=== PATIENT | female | born 1945 | race Caucasian/White ===

== ENCOUNTER → 2019-08-09 | Outpatient (CLI) | payer MEDICARE ==
--- NOTE | 2019-08-10 15:00 | MM ---
Reason for exam: screening (asymptomatic). History: Patient is postmenopausal and history of other cancer. Family history of breast cancer in cousin. 3 excisional biopsies of the left breast. Physical Findings: A clinical breast exam by your physician is recommended on an annual basis and results should be correlated with mammographic findings. MG 3D Screening Mammo W/Cad Bilateral CC and MLO view(s) were taken. No prior studies available for comparison. There are scattered fibroglandular densities. Finding: There are typically benign vascular, round calcifications in both breasts. There is no discrete abnormality. ASSESSMENT: Benign, BI-RAD 2 RECOMMENDATION: Routine screening mammogram of both breasts in 1 year.
== END | disposition home or self-care (01) ==
LOC: RADMAMWWP 14:09
PROVIDERS: ATTEND Family Medicine
DX: Z12.31 Encounter for screening mammogram for malignant neoplasm of breast (principal)
CPT/HCPCS: 77063; 77067

== ENCOUNTER → 2019-08-24 | Outpatient (CLI) | payer MEDICARE ==
--- NOTE | 2019-08-24 14:47 | CT ---
EXAMINATION TYPE: CT urogram wo/w con DATE OF EXAM: 08/24/2019 COMPARISON: None HISTORY: 74-year-old female gross Hematuria TECHNIQUE: Contiguous axial scanning of the abdomen and pelvis performed without and with IV Contrast , patient injected with 80 mL of Isovue 300. Delayed images through the kidneys and bladder were obta ined. Coronal/sagittal reconstructions performed. 3-D reconstructions generated on a dedicated [employer] workstation. CT DLP: 1776 mGycm Automated exposure control for dose reduction was used. FINDINGS: Median sternotomy wires with post-CABG changes. Heart upper limits of normal in size. Strandy atelect asis in the lower lungs. Some curvilinear opacities at the peripheral left base suggests scarring. No pleural effusion. Liver mildly enlarged at 18.7 cm with low-attenuation. No focal lesion seen. No biliary ductal dilata tion. Portal venous system is patent. Cholecystectomy clips. Slight 1.2 cm nodularity left adrenal gland unchanged from 07/20/2013. Right internal gland, spleen, and pancreas appear within normal limits. Mild to moderate atelectatic calcifications infrarenal abdominal aorta without aneurysm. Omental fat-containing ventral epigastric hernia measuring 3.8 cm wide and 4.8 cm craniocaudal. No nephrolithiasis or hydronephrosis. Symmetric uptake and excretion of contrast from both kidneys. A couple subcentimeter hypodensities within both kidneys too small for accurate CT characterization, l ikely cysts. No abnormal filling defect within the renal collecting systems. Limited degree of intraluminal opacif ication along the distalmost ureters without any evident abnormal wall thickening. No suspicious fill ing defects seen throughout the course of the remainder of the ureters or abnormal wall thickening. No dilated small bowel, free fluid, or free air. Some scattered prominent fluid-filled small bowel lo ops in the lower abdomen and pelvis. Normal appendix. Mild to moderate stool burden. No pericolonic i nflammatory change. Uterus surgically absent. No abnormal fluid collection in the pelvis or pelvic lymphadenopathy. On the 10 minute delayed scan, there is opacification of the posterior half of the bladder. No suspic ious filling defect is identified along the posterior half. Mild circumferential bladder wall thicken ing is noted. Bones: Mild degenerative changes at the hips. Osteopenia. Advanced degenerative changes throughout th e lumbar spine with grade 1 anterolisthesis at L5-S1. IMPRESSION: 1. A COUPLE SUBCENTIMETER HYPODENSITIES IN BOTH KIDNEYS TOO SMALL FOR ACCURATE CT CHARACTERIZATION, L IKELY TINY CORTICAL CYSTS. NO SUSPICIOUS RENAL MASS. 2. NO NEPHROLITHIASIS OR HYDRONEPHROSIS. 3. NO SUSPICIOUS FILLING DEFECT WITHIN THE RENAL COLLECTING SYSTEMS OR ALONG THE COURSE OF THE URETER S. 4. MILD CIRCUMFERENTIAL BLADDER WALL THICKENING. CORRELATE TO EXCLUDE CYSTITIS. 5. 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
== END | disposition home or self-care (01) ==
LOC: RADCTMAIN 12:17
PROVIDERS: ATTEND Urology
DX: N32.89 Other specified disorders of bladder (principal)
CPT/HCPCS: 82565; 84520; 74178; 36415; 74400; Q9967

== ENCOUNTER → 2021-09-27 | Outpatient (CLI) | payer MEDICARE ==
--- NOTE | 2021-09-28 11:58 | MM ---
Reason for exam: screening (asymptomatic). Last mammogram was performed 2 years and 2 months ago. History: Patient is postmenopausal and history of other cancer. Family history of breast cancer in cousin. 3 excisional biopsies of the left breast. Physical Findings: A clinical breast exam by your physician is recommended on an annual basis and results should be correlated with mammographic findings. MG 3D Screening Mammo W/Cad Bilateral CC and MLO view(s) were taken. Prior study comparison: August 09, 2019, bilateral MG 3d screening mammo w/cad. The breast tissue is heterogeneously dense. This may lower the sensitivity of mammography. There are benign appearing round vascular calcifications bilaterally. There is no discrete abnormality. ASSESSMENT: Benign, BI-RAD 2 RECOMMENDATION: Routine screening mammogram of both breasts in 1 year.
== END | disposition home or self-care (01) ==
LOC: RADMAMWWP 08:00
PROVIDERS: ATTEND Obstetrics & Gynecology
DX: Z12.31 Encounter for screening mammogram for malignant neoplasm of breast (principal)
CPT/HCPCS: 77063; 77067

== ENCOUNTER → 2022-10-04 | Outpatient (CLI) | payer MEDICARE ==
--- NOTE | 2022-10-04 14:15 | US ---
EXAMINATION TYPE: US extremity nonvascular mass RT DATE OF EXAM: 10/04/2022 COMPARISON: NONE CLINICAL HISTORY: R22.41 LOCALIZED SWELLING, MASS AND LUMP. Right leg In area of palpable mass #1 (lateral mid calf), no abnormality is visualized. In area of palpable mass #2 (medial ankle), no abnormality is visualized. IMPRESSION: Targeted ultrasound shows no worrisome mass or focal fluid collection.
--- NOTE | 2022-10-07 09:49 | US ---
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 History of hypertension and hyperlipidemia. History of diabetes. Doppler Waveforms: Right: Multiphasic Left: Multiphasic Ankle-Brachial Indices: Right: 1.2 Left: 1.2 Toe Brachial Indices: Right: 0.85 Left: 0.80 IMPRESSION: Normal study.
== END | disposition home or self-care (01) ==
LOC: RADUSWWP 12:53
PROVIDERS: ATTEND Family Medicine
DX: I25.119 Atherosclerotic heart disease of native coronary artery with unspecified angina pectoris (principal); R22.41 Localized swelling, mass and lump, right lower limb
CPT/HCPCS: 93922

== ENCOUNTER 2023-01-16 19:14 | Inpatient (IN) | payer MEDICARE ==
[2023-01-16] MEDS ORDERED: SODIUM CHLORIDE 0.9% 1,000 ML IV STA (19:40)
--- NOTE | 2023-01-16 19:54 | ED ---
Weakness HPI - General Chief complaint: Weakness Stated complaint: SOB, Weakness, ABD Pain Time Seen by Provider: 01/16/23 19:26 Source: patient Mode of arrival: ambulatory Limitations: no limitations - History of Present Illness Initial comments: Patient is a 77-year-old female with history of diabetes, COPD, thyroid disorder presenting with chief complaint of generalized weakness. She states that symptoms have been ongoing for months but over the last week they have acutely worsened. Patient states that by the end of the day she is exhausted and even walking short distances. She also notes shortness of breath. She denies chest pain. She admits to intermittent cramping abdominal pain that has also been ongoing for weeks. She admits to nausea and intermittent diarrhea, no vomiting. - Related Data Home Medications Medication Instructions Recorded Confirmed Albuterol Sulfate [Albuterol 2 puff PO RT-Q6H PRN 01/16/23 01/16/23 Sulfate Hfa] Ascorbic Acid [Vitamin C] 1,000 mg PO DAILY 01/16/23 01/16/23 Biotin 5 mg PO DAILY 01/16/23 01/16/23 Budesonide/Formoterol Fumarate 2 puff INHALATION RT-BID 01/16/23 01/16/23 [Symbicort 160-4.5 Mcg Inhaler] Bumetanide [BUMEX] 2 mg PO BID@0900,1700 01/16/23 01/16/23 Clopidogrel [Plavix] 75 mg PO DAILY 01/16/23 01/16/23 DULoxetine HCL [Cymbalta] 120 mg PO DAILY 01/16/23 01/16/23 Dicyclomine HCl 20 mg PO QID 01/16/23 01/16/23 Doxycycline Hyclate [Doryx] 50 mg PO DAILY 01/16/23 01/16/23 Fexofenadine HCl [Kathy Allergy] 180 mg PO DAILY 01/16/23 01/16/23 Glucosam/Charlie-Msm1/C/Odilon/Bosw 1 tab PO DAILY 01/16/23 01/16/23 [Glucosamine-Chondroitin Tablet] LORazepam [Ativan] 0.5 mg PO DAILY 01/16/23 01/16/23 LORazepam [Ativan] 1 mg PO HS 01/16/23 01/16/23 Levothyroxine Sodium [Synthroid] 75 mcg PO DAILY 01/16/23 01/16/23 Metoprolol Tartrate [Lopressor] 50 mg PO BID 01/16/23 01/16/23 Multivitamins, Thera [Multivitamin 1 tab PO DAILY 01/16/23 01/16/23 (formulary)] Nitroglycerin 0.4MG/Hr Patch 1 patch TRANSDERM DAILY 01/16/23 01/16/23 [Nitro-Dur 0.4MG/Hr Patch] Omeprazole [PriLOSEC] 20 mg PO BID 01/16/23 01/16/23 Potassium Chloride ER [K-Dur 20] 20 meq PO BID 01/16/23 01/16/23 Ranolazine [Ranexa] 500 mg PO BID 01/16/23 01/16/23 Rosuvastatin Calcium [Crestor] 40 mg PO HS 01/16/23 01/16/23 lisinopriL [Zestril] 2.5 mg PO DAILY 01/16/23 01/16/23 metFORMIN HCL [Glucophage] 1,000 mg PO BID 01/16/23 01/16/23 Allergies Allergy/AdvReac Type Severity Reaction Status Date / Time No Known Allergies Allergy Verified 01/16/23 21:04 Review of Systems ROS Statement: Those systems with pertinent positive or pertinent negative responses have been documented in the HPI. ROS Other: All systems not noted in ROS Statement are negative. Past Medical History Past Medical History: Cancer, Diabetes Mellitus, GERD/Reflux, Myocardial Infarction (MN), Osteoarthritis (OA), Thyroid Disorder Past Surgical History: Breast Surgery, Cholecystectomy, Coronary Bypass/CABG, Heart Catheterization With Stent, Joint Replacement Past Psychological History: Anxiety, Depression Smoking Status: Former smoker Past Alcohol Use History: None Reported Past Drug Use History: None Reported General Exam Limitations: no limitations General appearance: alert, in no apparent distress Head exam: Present: atraumatic, normocephalic, normal inspection Eye exam: Present: normal appearance Neck exam: Present: normal inspection, full ROM Respiratory exam: Present: normal lung sounds bilaterally. Absent: respiratory distress, wheezes, rales, rhonchi, stridor Cardiovascular Exam: Present: regular rate, normal rhythm, normal heart sounds. Absent: systolic murmur, diastolic murmur, rubs, gallop, clicks GI/Abdominal exam: Present: soft. Absent: distended, tenderness, guarding, rebound, rigid Extremities exam: Absent: pedal edema Neurological exam: Present: alert, oriented X3, CN II-XII intact Psychiatric exam: Present: normal affect, normal mood Skin exam: Present: warm, dry, intact, normal color. Absent: rash Course Vital Signs 01/16/23 01/16/23 01/16/23 19:17 21:08 22:52 Temperature 98.1 F Pulse Rate 82 80 80 Respiratory 24 22 20 Rate Blood Pressure 147/70 116/52 131/88 O2 Sat by Pulse 96 97 96 Oximetry 01/16/23 23:40 Temperature Pulse Rate 78 Respiratory 20 Rate Blood Pressure 140/66 O2 Sat by Pulse 98 Oximetry EKG Findings - EKG Comments: EKG Findings:: Sinus rhythm ventricular rate 79. PA interval 192. QRS 103. QTC 395. QTc 429. T-wave inversion in leads 1 and aVL. Left axis deviation. Medical Decision Making - Medical Decision Making Was pt. sent in by a medical professional or institution (, PA, ANALYTICAL CHEMIST, urgent care, hospital, or custodial...) When possible be specific @ -No Did you speak to anyone other than the patient for history (EMS, parent, family, police, friend...)? What history was obtained from this source @ -No Did you review nursing and triage notes (agree or disagree)? Why? @ -I reviewed and agree with nursing and triage notes Were old charts reviewed (outside hosp., previous admission, EMS record, old EKG, old radiological studies, urgent care reports/EKG's, custodial records)? Report findings @ -No old charts were reviewed Differential Diagnosis (chest pain, altered mental status, abdominal pain women, abdominal pain men, vaginal bleeding, weakness, fever, dyspnea, syncope, headache, dizziness, GI bleed, back pain, seizure, CVA, palpatations, mental health, musculoskeletal)? @ -MDM Differential Weakness: Hypoglycemia, shock, sepsis, hyponatremia, anemia, infection, MN, ETOH, adverse medicine reaction, overdose, stroke. ... This is not meant to be an all-incl usive list EKG interpreted by me (3pts min.). @ -As above X-rays interpreted by me (1pt min.). @ -Chest x-ray shows no acute process CT interpreted by me (1pt min.). @ -None done U/S interpreted by me (1pt. min.). @ -None done What testing was considered but not performed or refused? (CT, X-rays, U/S, labs)? Why? @ -None What meds were considered but not given or refused? Why? @ -None Did you discuss the management of the patient with other professionals (professionals i.e. Dr., PA, ANALYTICAL CHEMIST, lab, RT, psych nurse, psychosocial rehabilitation counselor, salvage determiner, teacher, licensing officer, continuous pillowcase cutter)? Give summary @ -discussed with admitting physician Dr. Quintanilla Was smoking cessation discussed for >3mins.? @ -No Was critical care preformed (if so, how long)? @ -No Were there social determinants of health that impacted care today? How? (Homelessness, low income, unemployed, alcoholism, drug addiction, transportation, low edu. Level, literacy, decrease access to med. care, residential, rehab)? @ -No Was there de-escalation of care discussed even if they declined (Discuss DNR or withdrawal of care, Hospice)? DNR status @ -No What co-morbidities impacted this encounter? (DM, HTN, Smoking, COPD, CAD, Cancer, CVA, ARF, Chemo, Hep., AIDS, mental health diagnosis, sleep apnea, morbid obesity)? @ -None Was patient admitted / discharged? Hospital course, mention meds given and route, prescriptions, significant lab abnormalities, going to OR and other pertinent info. @ -Patient is a 77-year-old female presenting with chief complaint of generalized weakness that has been persistent for months and worsening over the last week. She also admits to shortness of breath and nausea. Physical examination is unremarkable. EKG shows no acute process. Lab work shows hemoglobin 9.7, this is been slightly downward trending since October. BUN 36 creatinine 1.51. Lactic acid 2.6. Magnesium 1.5. Troponin less than 0.012. TSH less than 0.015. Chest x-ray shows no acute process. Given the anemia, dehydration, hypomagnesmia, and low TSH level, I believe it is reasonable to admit patient for generalized weakness and further workup. I spoke with Dr. Quintanilla who accepted admission. Patient is agreeable with this plan. I discus sed this case with my attending Dr. Mary. Undiagnosed new problem with uncertain prognosis? @ -No Drug Therapy requiring intensive monitoring for toxicity (Heparin, Nitro, Insulin, Cardizem)? @ -No Were any procedures done? @ -No Diagnosis/symptom? @ -Weakness Acute, or Chronic, or Acute on Chronic? @ -Acute on chronic Uncomplicated (without systemic symptoms) or Complicated (systemic symptoms)? @ -Complicated Side effects of treatment? @ -No Exacerbation, Progression, or Severe Exacerbation? @ -No Poses a threat to life or bodily function? How? (Chest pain, USA, MN, pneumonia, PE, COPD, DKA, ARF, appy, cholecystitis, CVA, Diverticulitis, Homicidal, Suicidal, threat to staff... and all critical care pts) @ -No - Lab Data Result diagrams: 01/16/23 20:18 01/16/23 20:18 Lab Results 01/16/23 01/16/23 01/16/23 Range/Units 20:18 20:18 20:18 WBC 7.8 (3.8-10.6) k/uL RBC 3.06 L (3.80-5.40) m/uL Hgb 9.7 L (11.4-16.0) gm/dL Hct 29.0 L (34.0-46.0) % MCV 94.8 (80.0-100.0) fL MCH 31.6 (25.0-35.0) pg MCHC 33.3 (31.0-37.0) g/dL RDW 12.8 (11.5-15.5) % Plt Count 342 (150-450) k/uL MPV 7.5 Neutrophils % 64 % Lymphocytes % 21 % Monocytes % 7 % Eosinophils % 5 % Basophils % 0 % Neutrophils # 5.0 (1.3-7.7) k/uL Lymphocytes # 1.7 (1.0-4.8) k/uL Monocytes # 0.5 (0-1.0) k/uL Eosinophils # 0.4 (0-0.7) k/uL Basophils # 0.0 (0-0.2) k/uL PT 9.9 (9.0-12.0) sec INR 0.9 (<1.2) APTT 22.3 (22.0-30.0) sec Sodium 136 L (137-145) mmol/L Potassium 4.6 (3.5-5.1) mmol/L Chloride 100 (98-107) mmol/L Carbon Dioxide 26 (22-30) mmol/L Anion Gap 10 mmol/L BUN 36 H (7-17) mg/dL Creatinine 1.51 H (0.52-1.04) mg/dL Est GFR (CKD-EPI)AfAm 39 (>60 ml/min/1.73 sqM) Est GFR (CKD-EPI)NonAf 33 (>60 ml/min/1.73 sqM) Glucose 142 H (74-99) mg/dL Lactic Ac Sepsis Rflx Plasma Lactic Acid Ronald (0.7-2.0) mmol/L Calcium 9.5 (8.4-10.2) mg/dL Phosphorus 4.5 (2.5-4.5) mg/dL Magnesium 1.5 L (1.6-2.3) mg/dL Total Bilirubin 0.2 (0.2-1.3) mg/dL AST 20 (14-36) U/L ALT 29 (4-34) U/L Alkaline Phosphatase 69 (38-126) U/L Troponin I (0.000-0.034) ng/mL Total Protein 6.2 L (6.3-8.2) g/dL Albumin 3.8 (3.5-5.0) g/dL TSH <0.015 L (0.465-4.680) mIU/L Free T4 1.14 (0.78-2.19) ng/dL Urine Color Urine Appearance (Clear) Urine pH (5.0-8.0) Ur Specific Glenn (1.001-1.035) Urine Protein (Negative) Urine Glucose (UA) (Negative) Urine Ketones (Negative) Urine Blood (Negative) Urine Nitrite (Negative) Urine Bilirubin (Negative) Urine Urobilinogen (<2.0) mg/dL Ur Leukocyte Esterase (Negative) Urine RBC (0-5) /hpf Urine WBC (0-5) /hpf Hyaline Casts (0-2) /lpf Urine Mucus (None) /hpf 01/16/23 01/16/23 01/16/23 Range/Units 20:18 20:18 21:29 WBC (3.8-10.6) k/uL RBC (3.80-5.40) m/uL Hgb (11.4-16.0) gm/dL Hct (34.0-46.0) % MCV (80.0-100.0) fL MCH (25.0-35.0) pg MCHC (31.0-37.0) g/dL RDW (11.5-15.5) % Plt Count (150-450) k/uL MPV Neutrophils % % Lymphocytes % % Monocytes % % Eosinophils % % Basophils % % Neutrophils # (1.3-7.7) k/uL Lymphocytes # (1.0-4.8) k/uL Monocytes # (0-1.0) k/uL Eosinophils # (0-0.7) k/uL Basophils # (0-0.2) k/uL PT (9.0-12.0) sec INR (<1.2) APTT (22.0-30.0) sec Sodium (137-145) mmol/L Potassium (3.5-5.1) mmol/L Chloride (98-107) mmol/L Carbon Dioxide (22-30) mmol/L Anion Gap mmol/L BUN (7-17) mg/dL Creatinine (0.52-1.04) mg/dL Est GFR (CKD-EPI)AfAm (>60 ml/min/1.73 sqM) Est GFR (CKD-EPI)NonAf (>60 ml/min/1.73 sqM) Glucose (74-99) mg/dL Lactic Ac Sepsis Rflx Y Plasma Lactic Acid Ronald 2.6 H* (0.7-2.0) mmol/L Calcium (8.4-10.2) mg/dL Phosphorus (2.5-4.5) mg/dL Magnesium (1.6-2.3) mg/dL Total Bilirubin (0.2-1.3) mg/dL AST (14-36) U/L ALT (4-34) U/L Alkaline Phosphatase (38-126) U/L Troponin I <0.012 (0.000-0.034) ng/mL Total Protein (6.3-8.2) g/dL Albumin (3.5-5.0) g/dL TSH (0.465-4.680) mIU/L Free T4 (0.78-2.19) ng/dL Urine Color Urine Appearance (Clear) Urine pH (5.0-8.0) Ur Specific Glenn (1.001-1.035) Urine Protein (Negative) Urine Glucose (UA) (Negative) Urine Ketones (Negative) Urine Blood (Negative) Urine Nitrite (Negative) Urine Bilirubin (Negative) Urine Urobilinogen (<2.0) mg/dL Ur Leukocyte Esterase (Negative) Urine RBC (0-5) /hpf Urine WBC (0-5) /hpf Hyaline Casts (0-2) /lpf Urine Mucus (None) /hpf 01/16/23 Range/Units 22:30 WBC (3.8-10.6) k/uL RBC (3.80-5.40) m/uL Hgb (11.4-16.0) gm/dL Hct (34.0-46.0) % MCV (80.0-100.0) fL MCH (25.0-35.0) pg MCHC (31.0-37.0) g/dL RDW (11.5-15.5) % Plt Count (150-450) k/uL MPV Neutrophils % % Lymphocytes % % Monocytes % % Eosinophils % % Basophils % % Neutrophils # (1.3-7.7) k/uL Lymphocytes # (1.0-4.8) k/uL Monocytes # (0-1.0) k/uL Eosinophils # (0-0.7) k/uL Basophils # (0-0.2) k/uL PT (9.0-12.0) sec INR (<1.2) APTT (22.0-30.0) sec Sodium (137-145) mmol/L Potassium (3.5-5.1) mmol/L Chloride (98-107) mmol/L Carbon Dioxide (22-30) mmol/L Anion Gap mmol/L BUN (7-17) mg/dL Creatinine (0.52-1.04) mg/dL Est GFR (CKD-EPI)AfAm (>60 ml/min/1.73 sqM) Est GFR (CKD-EPI)NonAf (>60 ml/min/1.73 sqM) Glucose (74-99) mg/dL Lactic Ac Sepsis Rflx Plasma Lactic Acid Ronald (0.7-2.0) mmol/L Calcium (8.4-10.2) mg/dL Phosphorus (2.5-4.5) mg/dL Magnesium (1.6-2.3) mg/dL Total Bilirubin (0.2-1.3) mg/dL AST (14-36) U/L ALT (4-34) U/L Alkaline Phosphatase (38-126) U/L Troponin I (0.000-0.034) ng/mL Total Protein (6.3-8.2) g/dL Albumin (3.5-5.0) g/dL TSH (0.465-4.680) mIU/L Free T4 (0.78-2.19) ng/dL Urine Color Light Yellow Urine Appearance Clear (Clear) Urine pH 5.0 (5.0-8.0) Ur Specific Glenn 1.010 (1.001-1.035) Urine Protein Negative (Negative) Urine Glucose (UA) Negative (Negative) Urine Ketones Negative (Negative) Urine Blood Negative (Negative) Urine Nitrite Negative (Negative) Urine Bilirubin Negative (Negative) Urine Urobilinogen <2.0 (<2.0) mg/dL Ur Leukocyte Esterase Small H (Negative) Urine RBC 1 (0-5) /hpf Urine WBC 4 (0-5) /hpf Hyaline Casts 1 (0-2) /lpf Urine Mucus Rare H (None) /hpf Disposition Clinical Impression: Weakness, Dehydration, Anemia Disposition: ADMITTED IP TO THIS [facility] Condition: Fair Time of Disposition: 22:21
--- NOTE | 2023-01-16 20:20 | XR ---
EXAMINATION TYPE: XR chest 2V DATE OF EXAM: 01/16/2023 COMPARISON: 06/23/2013 HISTORY: Short of breath TECHNIQUE: 2 views FINDINGS: Heart is normal. There is some mild atelectasis left lung base. There are sternal wires. No pleural effusion. Bony thorax is intact. Thoracic aorta is atheromatous. There is slight elevated ri ght diaphragm. IMPRESSION: There is some mild atelectasis left lung base which is improved compared to old exam. No heart failure. Mild chronic elevation of the right diaphragm.
[2023-01-16 20:46] LABS: Basophils % (A) 0 %; Eosinophils # (A) 0.4 k/uL (0-0.7); Eosinophils % (A) 5 %; HGB 9.7 gm/dL (11.4-16.0); Lymphocytes # (A) 1.7 k/uL (1.0-4.8); Lymphocytes % (A) 21 %; MCH 31.6 pg (25.0-35.0); MCHC 33.3 g/dL (31.0-37.0); MCV 94.8 fL (80.0-100.0); Mean Platelet Volume 7.5; Monocytes # (A) 0.5 k/uL (0-1.0); Monocytes % (A) 7 %; Neutrophils % (A) 64 %; Platelet Count 342 k/uL (150-450); RBC 3.06 m/uL (3.80-5.40); RDW 12.8 % (11.5-15.5); WBC 7.8 k/uL (3.8-10.6)
[2023-01-16 21:04] LABS: ALT 29 U/L (4-34); AST 20 U/L (14-36); African American GFR (CKD) 39 (>60 ml/min/1.73 sqM); Albumin 3.8 g/dL (3.5-5.0); Alkaline Phosphatase 69 U/L (38-126); Anion Gap 10 mmol/L; Blood Urea Nitrogen 36 mg/dL (7-17); Calcium 9.5 mg/dL (8.4-10.2); Carbon Dioxide 26 mmol/L (22-30); Chloride 100 mmol/L (98-107); Glucose 142 mg/dL (74-99); Magnesium 1.5 mg/dL (1.6-2.3); Non-African American GFR(CKD) 33 (>60 ml/min/1.73 sqM); Phosphorus 4.5 mg/dL (2.5-4.5); Potassium 4.6 mmol/L (3.5-5.1); Sodium 136 mmol/L (137-145); Total Bilirubin 0.2 mg/dL (0.2-1.3); Total Protein 6.2 g/dL (6.3-8.2)
[2023-01-16] MEDS ORDERED: MAGNESIUM SULFATE-D5W PMX 1 GM in DEXTROSE/WATER 1 100ML.BAG IVPB ONE (21:07)
[2023-01-16 21:08] LABS: INR 0.9 (<1.2); Partial Thromboplastin Time 22.3 sec (22.0-30.0); Prothrombin Time 9.9 sec (9.0-12.0)
[2023-01-16] MEDS ORDERED: NALOXONE 0.4 MG/ML 1 ML VIAL IV PRN (22:29)
[2023-01-16 22:50] LABS: T4, Free (Free Thyroxine) 1.14 ng/dL (0.78-2.19)
[2023-01-16 23:15] LABS: Appearance,Urine Clear (Clear); Bilirubin,Urine Negative (Negative); Blood,Urine Negative (Negative); Color,Urine Light Yellow; Glucose,Urine (UA) Negative (Negative); Hyaline Casts,Urine 1 /lpf (0-2); Ketones,Urine Negative (Negative); Leukocyte Esterase,Urine Small (Negative); Mucus,Urine Rare /hpf; Nitrite,Urine Negative (Negative); Protein,Urine Negative (Negative); RBC,Urine 1 /hpf (0-5); Urobilinogen,Urine <2.0 mg/dL (<2.0); WBC,Urine 4 /hpf (0-5)
[2023-01-17] MEDS: SODIUM CHLORIDE 0.9% 1,000 ML IV SCH ×2 (01:09→03:32)
[2023-01-17] MEDS: ACETAMINOPHEN TAB 325 MG TAB PO PRN ×2 (01:37→22:56)
[2023-01-17] MEDS ORDERED: LEVOTHYROXINE 75 MCG TAB PO SCH (06:30)
[2023-01-17] MEDS: SYMBICORT 160-4.5 MCG INHALER INHALATION SCH ×2 (08:33→21:13)
[2023-01-17] MEDS: LORATADINE 10 MG TAB PO SCH (08:52)
[2023-01-17] MEDS: PANTOPRAZOLE 40 MG TABLET PO SCH (08:52)
[2023-01-17] MEDS: RANOLAZINE 500 MG TAB.ER.12H PO SCH ×2 (08:52→20:51)
[2023-01-17] MEDS ORDERED: BUMETANIDE 1 MG TAB PO SCH (09:00)
[2023-01-17] MEDS ORDERED: NON FORMULARY DRUG (Glucosam/Chon-Msm1/C/Mang/Bosw [Glucosamine-Chondroitin Tablet] 1 EACH PO SCH (09:00)
[2023-01-17] MEDS ORDERED: POTASSIUM CHLORIDE ER 20 MEQ TAB.ER PO SCH (09:00)
[2023-01-17] MEDS ORDERED: metFORMIN 500 MG TAB PO SCH (09:00)
[2023-01-17] MEDS ORDERED: NON FORMULARY DRUG (Biotin [Biotin] 5 MG Capsule) PO SCH (09:00)
--- NOTE | 2023-01-17 09:17 | P.HPIM ---
History of Present Illness H&P Date: 01/17/23 Hodan Jacobs, is a 77 -year-old female who presented to [facility] emergency room with a chief complaint of generalized weakness She was evaluated in the emergency room vital examination on presentation revealed a temperature of 98.1 pulse 82 respiration 24 blood pressure 147/70 pulse ox 96% on room air Laboratory data revealed a white blood count of 7.8 hemoglobin 9.7 platelet count 342 sodium 136 potassium 4.6 chloride 100 CO2 26 BUN 36 creatinine 1.51 creatinine was 1.3 on 01/02/2023 lactic acid was elevated at 2.6 troponin normal at 0.012 TSH was low at 0.015 urine analysis was positive for leukocyte esterase Testing in the emergency room revealed chest x-ray done in the emergency room revealed mild atelectasis in the left lung and chronic elevation in the right diaphragm, EKG revealed sinus rhythm with 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 Patient was admitted to medical floor for further evaluation and treatment Past medical history is significant for history of hypertension, history of hypothyroidism, history of hyperlipidemia, history of coronary artery disease, history of [id number] diabetes mellitus, history of obstructive sleep apnea. On review of systems patient is alert and oriented 3 in no apparent distress there is no fever or chills no headache or dizziness no chest pain , she is complaining of shortness of breath no cough no nausea or vomiting no abdominal pain no diarrhea and no urinary symptoms Past Medical History Past Medical History: Cancer, Diabetes Mellitus, GERD/Reflux, Myocardial Infarction ([place]), Osteoarthritis (OA), Thyroid Disorder Last Myocardial Infarction Date:: 2010 History of Any Multi-Drug Resistant Organisms: None Reported Past Surgical History: Breast Surgery, Cholecystectomy, Coronary Bypass/CABG, Heart Catheterization With Stent, Joint Replacement Additional Past Surgical History / Comment(s): Tripple Bypass Past Anesthesia/Blood Transfusion Reactions: No Reported Reaction Date of Last Stent Placement:: Unknown Past Psychological History: Anxiety, Depression Smoking Status: Former smoker Past Alcohol Use History: None Reported Past Drug Use History: None Reported Medications and Allergies Home Medications Medication Instructions Recorded Confirmed Type Albuterol Sulfate [Albuterol 2 puff PO RT-Q6H PRN 01/16/23 01/16/23 History Sulfate Hfa] Ascorbic Acid [Vitamin C] 1,000 mg PO DAILY 01/16/23 01/16/23 History Biotin 5 mg PO DAILY 01/16/23 01/16/23 History Budesonide/Formoterol Fumarate 2 puff INHALATION RT-BID 01/16/23 01/16/23 History [Symbicort 160-4.5 Mcg Inhaler] Bumetanide [BUMEX] 2 mg PO BID@0900,1700 01/16/23 01/16/23 History Clopidogrel [Plavix] 75 mg PO DAILY 01/16/23 01/16/23 History DULoxetine HCL [Cymbalta] 120 mg PO DAILY 01/16/23 01/16/23 History Dicyclomine HCl 20 mg PO QID 01/16/23 01/16/23 History Doxycycline Hyclate [Doryx] 50 mg PO DAILY 01/16/23 01/16/23 History Fexofenadine HCl [Kathy Allergy] 180 mg PO DAILY 01/16/23 01/16/23 History Glucosam/Charlie-Msm1/C/Odilon/Bosw 1 tab PO DAILY 01/16/23 01/16/23 History [Glucosamine-Chondroitin Tablet] LORazepam [Ativan] 0.5 mg PO DAILY 01/16/23 01/16/23 History LORazepam [Ativan] 1 mg PO HS 01/16/23 01/16/23 History Levothyroxine Sodium [Synthroid] 75 mcg PO DAILY 01/16/23 01/16/23 History Metoprolol Tartrate [Lopressor] 50 mg PO BID 01/16/23 01/16/23 History Multivitamins, Thera [Multivitamin 1 tab PO DAILY 01/16/23 01/16/23 History (formulary)] Nitroglycerin 0.4MG/Hr Patch 1 patch TRANSDERM DAILY 01/16/23 01/16/23 History [Nitro-Dur 0.4MG/Hr Patch] Omeprazole [PriLOSEC] 20 mg PO BID 01/16/23 01/16/23 History Potassium Chloride ER [K-Dur 20] 20 meq PO BID 01/16/23 01/16/23 History Ranolazine [Ranexa] 500 mg PO BID 01/16/23 01/16/23 History Rosuvastatin Calcium [Crestor] 40 mg PO HS 01/16/23 01/16/23 History lisinopriL [Zestril] 2.5 mg PO DAILY 01/16/23 01/16/23 History metFORMIN HCL [Glucophage] 1,000 mg PO BID 01/16/23 01/16/23 History Allergies Allergy/AdvReac Type Severity Reaction Status Date / Time No Known Allergies Allergy Verified 01/16/23 21:04 Physical Exam Vitals: Vital Signs Temp Pulse Pulse Resp BP BP Pulse Ox 01/17/23 07:04 97.8 F 68 16 112/63 01/17/23 05:23 115/70 01/17/23 03:26 99/62 01/17/23 02:44 98.5 F 70 16 93/54 96 01/17/23 00:46 98.6 F 77 18 147/74 94 L 01/16/23 23:40 78 20 140/66 98 01/16/23 22:52 80 20 131/88 96 01/16/23 21:08 80 22 116/52 97 01/16/23 19:17 98.1 F 82 24 147/70 96 Intake and Output 01/16/23 01/17/23 01/17/23 22:59 06:59 14:59 Intake Total 450 Output Total 2 Balance 448 Intake: Intake, IV Titration 450 Amount Sodium Chloride 0.9% 1, 450 000 ml @ 75 mls/hr IV . [id number] [facility] Rx#:[id number] Output: Urine 2 Other: Weight 63.503 kg 63.503 kg In general patient is alert and oriented x 3 in no distress HEENT head normocephalic and atraumatic Neck is supple no JVD no goiter no lymphadenopathy no carotid bruit Chest examination is clear to auscultation no crackles no wheezing Cardiac exam reveals regular heart sounds S1 and S2 no gallops no murmurs Abdomen is soft nontender no organomegaly with normal bowel sounds Extremity exam reveals no edema no cyanosis or clubbing Neurological examination reveals no gross focal deficits Results CBC & Chem 7: 01/16/23 20:18 01/16/23 20:18 Labs: Abnormal Lab Results - Last 24 Hours (Table) 01/16/23 01/16/23 01/16/23 Range/Units 20:18 20:18 20:18 RBC 3.06 L (3.80-5.40) m/uL Hgb 9.7 L (11.4-16.0) gm/dL Hct 29.0 L (34.0-46.0) % Sodium 136 L (137-145) mmol/L BUN 36 H (7-17) mg/dL Creatinine 1.51 H (0.52-1.04) mg/dL Glucose 142 H (74-99) mg/dL Plasma Lactic Acid Ronald 2.6 H* (0.7-2.0) mmol/L Magnesium 1.5 L (1.6-2.3) mg/dL Total Protein 6.2 L (6.3-8.2) g/dL TSH <0.015 L (0.465-4.680) mIU/L Ur Leukocyte Esterase (Negative) Urine Mucus (None) /hpf 01/16/23 Range/Units 22:30 RBC (3.80-5.40) m/uL Hgb (11.4-16.0) gm/dL Hct (34.0-46.0) % Sodium (137-145) mmol/L BUN (7-17) mg/dL Creatinine (0.52-1.04) mg/dL Glucose (74-99) mg/dL Plasma Lactic Acid Ronald (0.7-2.0) mmol/L Magnesium (1.6-2.3) mg/dL Total Protein (6.3-8.2) g/dL TSH (0.465-4.680) mIU/L Ur Leukocyte Esterase Small H (Negative) Urine Mucus Rare H (None) /hpf Thrombosis Risk Factor Assmnt - Choose All That Apply Any of the Below Risk Factors Present?: Yes Each Factor Represents 1 point: Obesity (BMI >25) Each Risk Factor Represents 3 Points: Age 75 years or older Thrombosis Risk Factor Assessment Total Risk Factor Score: 4 Thrombosis Risk Factor Assessment Level: Moderate Risk Assessment and Plan Plan: Generalized weakness Evidence of urinary tract infection Acute kidney injury with elevated BUN and creatinine Shortness of breath with any activity Difficulty swallowing with feeling food stuck in her throat Elevated lactic acid Anemia on presentation Known history of hypothyroidism maintained on Synthroid was decreased TSH at this time Underlying history of hypertension Underlying history of hyperlipidemia Underlying history of [id number] diabetes mellitus Underlying history of COPD Underlying history of obstructive sleep apnea Underlying history of coronary artery disease At this time patient is admitted to medical floor She was started on IV fluid and on oral antibiotic in the emergency room Home medications reviewed and reordered, at this time I will hold metformin, and decreased dose of Synthroid to 50 g daily Will monitor closely
[2023-01-17] MEDS: ASCORBIC ACID 500 MG TAB PO SCH (09:59)
[2023-01-17] MEDS: DOXYCYCLINE 50 MG CAP PO SCH (09:59)
[2023-01-17] MEDS: DICYCLOMINE 20 MG TAB PO SCH ×4 (09:59→21:02)
[2023-01-17] MEDS: CLOPIDOGREL 75 MG TAB PO SCH (09:59)
[2023-01-17] MEDS: DULoxetine HCL 60 MG CAPSULE.DR PO SCH (09:59)
[2023-01-17] MEDS: METOPROLOL TARTRATE 50 MG TAB PO SCH ×2 (10:00→20:50)
[2023-01-17] MEDS: LORazepam 0.5 MG TAB PO SCH (10:00)
[2023-01-17] MEDS: NITROGLYCERIN 0.4MG/HR PATCH TRANSDERM SCH (10:00)
[2023-01-17] MEDS: MULTIVITAMINS, THERA 1 EACH TAB PO SCH (10:00)
--- NOTE | 2023-01-17 12:34 | P.NPCON ---
History of Present Illness - Reason for Consult acute renal failure, chronic renal failure - History of Present Illness Reason for consultation: Acute kidney injury on chronic kidney disease History of present illness: Patient is a 77-year-old female seen in renal consultation for acute kidney injury on chronic kidney disease. Patient has chronic kidney disease stage II with baseline creatinine near 1. Etiology is nephrosclerosis. Creatinine 1.51 on admission. Patient presented to the hospital due to generalized weakness. Patient states over the last week the weakness has gotten progressively worse. She has been taking diuretics outpatient but currently held. She is currently receiving IV fluids. Patient does have long-standing history of diabetes. She denies use of nonsteroidals. She denies family history of renal disease. She does have history of CABG. Patient states her urine output has been low the last few days but is now improving. She denies hematuria. No chest pain. Ch est x-ray showed no evidence of fluid overload. She admits to low-grade fever at home over the last few days ranging from 98-100F. Vital signs are stable. General: No acute distress. HEENT: Head exam is unremarkable. LUNGS: No audible rhonchi or wheezes. HEART: Rate and Rhythm are regular. ABDOMEN: Nontender. EXTREMITITES: No edema. Past Medical History Past Medical History: Cancer, Diabetes Mellitus, GERD/Reflux, Myocardial Infarction ([place]), Osteoarthritis (OA), Thyroid Disorder Last Myocardial Infarction Date:: 2010 History of Any Multi-Drug Resistant Organisms: None Reported Past Surgical History: Breast Surgery, Cholecystectomy, Coronary Bypass/CABG, Heart Catheterization With Stent, Joint Replacement Additional Past Surgical History / Comment(s): Tripple Bypass Past Anesthesia/Blood Transfusion Reactions: No Reported Reaction Date of Last Stent Placement:: Unknown Past Psychological History: Anxiety, Depression Smoking Status: Former smoker Past Alcohol Use History: None Reported Past Drug Use History: None Reported Medications and Allergies Home Medications Medication Instructions Recorded Confirmed Type Albuterol Sulfate [Albuterol 2 puff PO RT-Q6H PRN 01/16/23 01/16/23 History Sulfate Hfa] Ascorbic Acid [Vitamin C] 1,000 mg PO DAILY 01/16/23 01/16/23 History Biotin 5 mg PO DAILY 01/16/23 01/16/23 History Budesonide/Formoterol Fumarate 2 puff INHALATION RT-BID 01/16/23 01/16/23 History [Symbicort 160-4.5 Mcg Inhaler] Bumetanide [BUMEX] 2 mg PO BID@0900,1700 01/16/23 01/16/23 History Clopidogrel [Plavix] 75 mg PO DAILY 01/16/23 01/16/23 History DULoxetine HCL [Cymbalta] 120 mg PO DAILY 01/16/23 01/16/23 History Dicyclomine HCl 20 mg PO QID 01/16/23 01/16/23 History Doxycycline Hyclate [Doryx] 50 mg PO DAILY 01/16/23 01/16/23 History Fexofenadine HCl [Kathy Allergy] 180 mg PO DAILY 01/16/23 01/16/23 History Glucosam/Charlie-Msm1/C/Odilon/Bosw 1 tab PO DAILY 01/16/23 01/16/23 History [Glucosamine-Chondroitin Tablet] LORazepam [Ativan] 0.5 mg PO DAILY 01/16/23 01/16/23 History LORazepam [Ativan] 1 mg PO HS 01/16/23 01/16/23 History Levothyroxine Sodium [Synthroid] 75 mcg PO DAILY 01/16/23 01/16/23 History Metoprolol Tartrate [Lopressor] 50 mg PO BID 01/16/23 01/16/23 History Multivitamins, Thera [Multivitamin 1 tab PO DAILY 01/16/23 01/16/23 History (formulary)] Nitroglycerin 0.4MG/Hr Patch 1 patch TRANSDERM DAILY 01/16/23 01/16/23 History [Nitro-Dur 0.4MG/Hr Patch] Omeprazole [PriLOSEC] 20 mg PO BID 01/16/23 01/16/23 History Potassium Chloride ER [K-Dur 20] 20 meq PO BID 01/16/23 01/16/23 History Ranolazine [Ranexa] 500 mg PO BID 01/16/23 01/16/23 History Rosuvastatin Calcium [Crestor] 40 mg PO HS 01/16/23 01/16/23 History lisinopriL [Zestril] 2.5 mg PO DAILY 01/16/23 01/16/23 History metFORMIN HCL [Glucophage] 1,000 mg PO BID 01/16/23 01/16/23 History Allergies Allergy/AdvReac Type Severity Reaction Status Date / Time No Known Allergies Allergy Verified 01/16/23 21:04 Physical Exam Vitals: Vital Signs Temp Pulse Pulse Resp BP BP Pulse Ox 01/17/23 11:22 98.1 F 77 16 103/62 94 L 01/17/23 10:05 79 126/72 93 L 01/17/23 07:04 97.8 F 68 16 112/63 01/17/23 05:23 115/70 01/17/23 03:26 99/62 01/17/23 02:44 98.5 F 70 16 93/54 96 01/17/23 00:46 98.6 F 77 18 147/74 94 L 01/16/23 23:40 78 20 140/66 98 01/16/23 22:52 80 20 131/88 96 01/16/23 21:08 80 22 116/52 97 01/16/23 19:17 98.1 F 82 24 147/70 96 Intake and Output 01/16/23 01/17/23 01/17/23 22:59 06:59 14:59 Intake Total 450 Output Total 2 Balance 448 Intake: Intake, IV Titration 450 Amount Sodium Chloride 0.9% 1, 450 000 ml @ 75 mls/hr IV . [id number] [facility] Rx#:[id number] Output: Urine 2 Other: Voiding Method Toilet Weight 63.503 kg 63.503 kg Results - Lab Results Most recent lab results Calcium 9.5 mg/dL (8.4-10.2) 01/16/23 20:18 Phosphorus 4.5 mg/dL (2.5-4.5) 01/16/23 20:18 Magnesium 1.5 mg/dL (1.6-2.3) L 01/16/23 20:18 01/16/23 20:18 01/16/23 20:18 Assessment and Plan Plan: Assessment: 1. Acute kidney injury mostly prerenal secondary to hypovolemia diuresis. Creatinine 1.51 on admission. UA benign. 2. Chronic kidney disease stage II with baseline creatinine near 1 secondary to nephrosclerosis. 3. Lactic acidosis secondary to hypovolemia/hypotension. 4. Diabetes mellitus. Plan: Maintain IV fluids. Continue to hold diuretics and antihypertensives. Stop potassium supplementation. Check renal ultrasound. Avoid nephrotoxins. Continue to monitor renal function and urine output. Thank you for the consultation. I will continue to follow the patient with you during her hospital stay.
--- NOTE | 2023-01-17 13:47 | US ---
EXAMINATION TYPE: US kidneys/renal and bladder DATE OF EXAM: 01/17/2023 COMPARISON: NONE CLINICAL HISTORY: [place]. Abnormal labs. Patient states having constant UTI's EXAM MEASUREMENTS: Right Kidney: 10.0 x 3.6 x 4.1 cm Left Kidney: 9.4 x 4.2 x 5.2 cm Right Kidney: Medial anechoic lesion at hilum - 1.4 x 1.7 cm Left Kidney: No hydronephrosis or masses seen Bladder: distended, anechoic Right jet seen There is no evidence for hydronephrosis at this point in time. No nephrolithiasis is seen. No solid masses are identified. The urinary bladder is anechoic. IMPRESSION: No parapelvic cyst right kidney.
--- NOTE | 2023-01-17 14:47 | P.CNPUL ---
History of Present Illness Consult date: 01/17/23 Requesting physician: Marc Quintanilla Reason for consult: dyspnea, COPD Chief complaint: Diarrhea, weakness, dysphagia History of present illness: This is a pleasant 77 showed female patient who follows with Dr. van as her primary care provider. She has a history of coronary artery disease with previous coronary artery bypass grafting, previous stent placement, diabetes mellitus, hypothyroidism, hypertension, hyperlipidemia, chronic obstructive pulmonary disease from 30 years of smoking. She is maintained on Symbicort and albuterol along with oxygen at nighttime. She follows with a title insurance examiner out of the [facility]. She presented here to the emergency room last evening with the complaint of generalized weakness and fatigue that have been progressing over the past week. She feels exhausted. She is dyspneic on exertion. Some abdominal pain and cramping with intermittent diarrhea. Chest x- ray revealed some mild atelectasis of the left base. No overt heart failure. Mild chronic elevation of the right hemidiaphragm. White count 7.8. Hemoglobin 9.7. Platelets 342. D-dimer 0.39. Sodium 136. Potassium 4.6. Bicarb 26. BUN 36. Creatinine 1.51. Glucose 142. TSH less than 0.015. Free T4 1 0.14. Urinalysis clean. Ultrasound of the kidneys/renal and bladder revealed no evidence of hydronephrosis. No nephrolithiasis. No solid masses identified. The urinary bladder is anechoic. She is seen today in consultation on the regular medical floor. Currently laying comfortable in bed. Awake and alert in no acute distress. Maintaining good O2 saturations in the 90s on 2 L/m per nasal cannula. Normal saline at 75 mls per hour. She is on Symbicort and a lbuterol. Empiric antibiotics in the form of doxycycline. Review of Systems REVIEW OF SYSTEMS: CONSTITUTIONAL: Generalized weakness.Denies any recent significant weight loss or weight gain. EYES: Denies change in vision. EARS, NOSE, MOUTH, THROAT: Denies headaches, denies sore throat. CARDIOVASCULAR: Denies chest pain, palpitations or syncopal episodes. RESPIRATORY: Positive for shortness of breath, cough, congestion no hemoptysis. GASTROINTESTINAL: positive for abdominal pain, diarrhea GENITOURINARY: Denies hematuria, denies infections. MUSKULOSKELETAL: Denies pain, denies swelling. INTEGUMENTARY: Denies rash, denies eczema. NEUROLOGICAL: Denies recent memory loss, no recent seizure activity. PSYCHIATRIC: Denies anxiety, denies depression. HEMATOLOGIC/LYMPHATIC: Denies anemia, denies enlarged lymph nodes. Past Medical History Past Medical History: Cancer, Diabetes Mellitus, GERD/Reflux, Myocardial Infarction ([place]), Osteoarthritis (OA), Thyroid Disorder Last Myocardial Infarction Date:: 2010 History of Any Multi-Drug Resistant Organisms: None Reported Past Surgical History: Breast Surgery, Cholecystectomy, Coronary Bypass/CABG, Heart Catheterization With Stent, Joint Replacement Additional Past Surgical History / Comment(s): Tripple Bypass Past Anesthesia/Blood Transfusion Reactions: No Reported Reaction Date of Last Stent Placement:: Unknown Past Psychological History: Anxiety, Depression Smoking Status: Former smoker Past Alcohol Use History: None Reported Past Drug Use History: None Reported Medications and Allergies Home Medications Medication Instructions Recorded Confirmed Type Albuterol Sulfate [Albuterol 2 puff PO RT-Q6H PRN 01/16/23 01/16/23 History Sulfate Hfa] Ascorbic Acid [Vitamin C] 1,000 mg PO DAILY 01/16/23 01/16/23 History Biotin 5 mg PO DAILY 01/16/23 01/16/23 History Budesonide/Formoterol Fumarate 2 puff INHALATION RT-BID 01/16/23 01/16/23 History [Symbicort 160-4.5 Mcg Inhaler] Bumetanide [BUMEX] 2 mg PO BID@0900,1700 01/16/23 01/16/23 History Clopidogrel [Plavix] 75 mg PO DAILY 01/16/23 01/16/23 History DULoxetine HCL [Cymbalta] 120 mg PO DAILY 01/16/23 01/16/23 History Dicyclomine HCl 20 mg PO QID 01/16/23 01/16/23 History Doxycycline Hyclate [Doryx] 50 mg PO DAILY 01/16/23 01/16/23 History Fexofenadine HCl [Kathy Allergy] 180 mg PO DAILY 01/16/23 01/16/23 History Glucosam/Charlie-Msm1/C/Odilon/Bosw 1 tab PO DAILY 01/16/23 01/16/23 History [Glucosamine-Chondroitin Tablet] LORazepam [Ativan] 0.5 mg PO DAILY 01/16/23 01/16/23 History LORazepam [Ativan] 1 mg PO HS 01/16/23 01/16/23 History Levothyroxine Sodium [Synthroid] 75 mcg PO DAILY 01/16/23 01/16/23 History Metoprolol Tartrate [Lopressor] 50 mg PO BID 01/16/23 01/16/23 History Multivitamins, Thera [Multivitamin 1 tab PO DAILY 01/16/23 01/16/23 History (formulary)] Nitroglycerin 0.4MG/Hr Patch 1 patch TRANSDERM DAILY 01/16/23 01/16/23 History [Nitro-Dur 0.4MG/Hr Patch] Omeprazole [PriLOSEC] 20 mg PO BID 01/16/23 01/16/23 History Potassium Chloride ER [K-Dur 20] 20 meq PO BID 01/16/23 01/16/23 History Ranolazine [Ranexa] 500 mg PO BID 01/16/23 01/16/23 History Rosuvastatin Calcium [Crestor] 40 mg PO HS 01/16/23 01/16/23 History lisinopriL [Zestril] 2.5 mg PO DAILY 01/16/23 01/16/23 History metFORMIN HCL [Glucophage] 1,000 mg PO BID 01/16/23 01/16/23 History Allergies Allergy/AdvReac Type Severity Reaction Status Date / Time No Known Allergies Allergy Verified 01/16/23 21:04 Physical Exam Vitals: Vital Signs Temp Pulse Pulse Resp BP BP Pulse Ox 01/17/23 11:22 98.1 F 77 16 103/62 94 L 01/17/23 10:05 79 126/72 93 L 01/17/23 07:04 97.8 F 68 16 112/63 01/17/23 05:23 115/70 01/17/23 03:26 99/62 01/17/23 02:44 98.5 F 70 16 93/54 96 01/17/23 00:46 98.6 F 77 18 147/74 94 L 01/16/23 23:40 78 20 140/66 98 01/16/23 22:52 80 20 131/88 96 01/16/23 21:08 80 22 116/52 97 01/16/23 19:17 98.1 F 82 24 147/70 96 Intake and Output 01/16/23 01/17/23 01/17/23 22:59 06:59 14:59 Intake Total 450 Output Total 2 Balance 448 Intake: Intake, IV Titration 450 Amount Sodium Chloride 0.9% 1, 450 000 ml @ 75 mls/hr IV . [id number] [facility] Rx#:[id number] Output: Urine 2 Other: Voiding Method Toilet Weight 63.503 kg 63.503 kg GENERAL EXAM: Alert, active, pleasant 77-year-old female, on 2 L nasal cannula,comfortable in no apparent distress. HEAD: Normocephalic. EYES: Normal reaction of pupils, equal size. NOSE: Clear with pink turbinates. THROAT: No erythema or exudates. NECK: No masses, no JVD. CHEST: No chest wall deformity. LUNGS: Equal air entry with no crackles, wheeze, rhonchi or dullness. CVS: S1 and S2 normal with no audible murmur, regular rhythm. ABDOMEN: No hepatosplenomegaly, normal bowel sounds, no guarding or rigidity. SPINE: No scoliosis or deformity SKIN: No rashes CENTRAL NERVOUS SYSTEM: No focal deficits, tone is normal in all 4 extremities. EXTREMITIES: There is no peripheral edema. No clubbing, no cyanosis. P eripheral pulses are intact. Results - Laboratory Findings CBC and BMP: 01/16/23 20:18 01/16/23 20:18 PT/INR, D-dimer PT 9.9 sec (9.0-12.0) 01/16/23 20:18 INR 0.9 (<1.2) 01/16/23 20:18 D-Dimer 0.39 mg/L FEU (<0.60) 01/17/23 10:39 Abnormal lab findings: Abnormal Labs 01/16/23 01/16/23 01/16/23 20:18 20:18 20:18 RBC 3.06 L Hgb 9.7 L Hct 29.0 L Sodium 136 L BUN 36 H Creatinine 1.51 H Glucose 142 H Plasma Lactic Acid Ronald 2.6 H* Magnesium 1.5 L Total Protein 6.2 L TSH <0.015 L Ur Leukocyte Esterase Urine Mucus 01/16/23 22:30 RBC Hgb Hct Sodium BUN Creatinine Glucose Plasma Lactic Acid Ronald Magnesium Total Protein TSH Ur Leukocyte Esterase Small H Urine Mucus Rare H - Diagnostic Findings Chest x-ray: image reviewed Assessment and Plan Assessment: Generalized weakness suspect secondary to diarrhea and dehydration Acute kidney injury secondary to above Dysphagia of unclear etiology Anemia of unclear etiology, current hemoglobin 9.7 Hypothyroidism with current TSH less than 0.015, dose adjusted Chronic obstructive pulmonary disease, currently inactive in stable Former smoker Coronary disease with previous stent placement and previous bypass grafting Hypertension Hyperlipidemia Diabetes mellitus Plan: The patient was seen and evaluated Chest x-ray, labs and medications reviewed Continue Symbicort, albuterol Doxycycline empirically Continue fluid resuscitation Titrate the FiO2 as needed We'll continue to follow and make further recommendations based on her clinical status I have personally seen and examined the patient, performed the documentation and the assessment and plan as written. Number of minutes spent on the visit: 20.
[2023-01-17 17:24] LABS: Glucose,Whole Blood 138 mg/dL (70-110)
[2023-01-17] MEDS: INSULIN ASPART (NovoLOG) 100 UNIT/ML VIAL SQ SCH ×2 (17:56→20:51)
[2023-01-17 19:11] LABS: % Iron Saturation 10.11 (12.00-45.00)
[2023-01-17 19:59] LABS: Glucose,Whole Blood 155 mg/dL (70-110)
[2023-01-17] MEDS: ATORVASTATIN 80 MG TAB PO SCH (20:50)
[2023-01-17] MEDS: LORazepam 1 MG TAB PO SCH (22:56)
[2023-01-18] MEDS: SODIUM CHLORIDE 0.9% 1,000 ML IV SCH ×2 (00:48→21:45)
[2023-01-18] MEDS: LEVOTHYROXINE 50 MCG TAB PO SCH (06:04)
[2023-01-18 07:48] LABS: Glucose,Whole Blood 115 mg/dL (70-110)
[2023-01-18] MEDS: INSULIN ASPART (NovoLOG) 100 UNIT/ML VIAL SQ SCH ×4 (07:50→21:42)
[2023-01-18] MEDS: SYMBICORT 160-4.5 MCG INHALER INHALATION SCH ×2 (08:18→20:21)
[2023-01-18] MEDS: ASCORBIC ACID 500 MG TAB PO SCH (09:04)
[2023-01-18] MEDS: PANTOPRAZOLE 40 MG TABLET PO SCH (09:04)
[2023-01-18] MEDS: RANOLAZINE 500 MG TAB.ER.12H PO SCH ×2 (09:04→21:41)
[2023-01-18] MEDS: MULTIVITAMINS, THERA 1 EACH TAB PO SCH (09:04)
[2023-01-18] MEDS: DULoxetine HCL 60 MG CAPSULE.DR PO SCH (09:04)
[2023-01-18] MEDS: DOXYCYCLINE 50 MG CAP PO SCH (09:05)
[2023-01-18] MEDS: DICYCLOMINE 20 MG TAB PO SCH ×4 (09:05→21:41)
[2023-01-18] MEDS: NITROGLYCERIN 0.4MG/HR PATCH TRANSDERM SCH (09:05)
[2023-01-18] MEDS: METOPROLOL TARTRATE 50 MG TAB PO SCH ×2 (09:05→21:40)
[2023-01-18] MEDS: CLOPIDOGREL 75 MG TAB PO SCH (09:05)
[2023-01-18] MEDS: LORATADINE 10 MG TAB PO SCH (09:05)
[2023-01-18] MEDS: LORazepam 0.5 MG TAB PO SCH (09:05)
--- NOTE | 2023-01-18 10:56 | P.PN ---
Subjective Progress Note Date: 01/18/23 Hodan Jacobs, is a 77 -year-old female who presented to [facility] emergency room with a chief complaint of generalized weakness She was evaluated in the emergency room vital examination on presentation revealed a temperature of 98.1 pulse 82 respiration 24 blood pressure 147/70 pulse ox 96% on room air Laboratory data revealed a white blood count of 7.8 hemoglobin 9.7 platelet count 342 sodium 136 potassium 4.6 chloride 100 CO2 26 BUN 36 creatinine 1.51 creatinine was 1.3 on 01/02/2023 lactic acid was elevated at 2.6 troponin normal at 0.012 TSH was low at 0.015 urine analysis was positive for leukocyte esterase Testing in the emergency room revealed chest x-ray done in the emergency room revealed mild atelectasis in the left lung and chronic elevation in the right diaphragm, EKG revealed sinus rhythm with 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 Patient was admitted to medical floor for further evaluation and treatment Past medical history is significant for history of hypertension, history of hypothyroidism, history of hyperlipidemia, history of coronary artery disease, history of hik-sslegoq-ulyyquskn diabetes mellitus, history of obstructive sleep apnea. On review of systems patient is alert and oriented 3 in no apparent distress there is no fever or chills no headache or dizziness no chest pain , she is complaining of shortness of breath no cough no nausea or vomiting no abdominal pain no diarrhea and no urinary symptoms. 01/18/2023 patient was seen and examined on the medical she is alert and oriented 3 in no apparent distress she is still complaining of severe generalized weakness and complaining of shortness of breath with activity, patient has evidence of urinary tract infection, evidence of iron deficiency anemia, acute on chronic renal failure, and known history of coronary artery disease, echocardiogram is still pending, physical therapy occupational therapy consult, IV iron, labs today are still pending, will follow closely. Objective - Vital Signs Vital signs: Vital Signs Temp 98.2 F 01/18/23 08:00 Pulse 74 01/18/23 08:00 Resp 18 01/18/23 08:00 BP 144/76 01/18/23 08:00 Pulse Ox 97 01/18/23 08:19 FiO2 Intake & Output 01/17/23 01/18/23 01/18/23 18:59 06:59 18:59 Intake Total 900 1400 Balance 900 1400 Intake: Intake, IV Titration 900 900 Amount Sodium Chloride 0.9% 1, 900 900 000 ml @ 75 mls/hr IV . [id number] [facility] Rx#:[id number] Oral 500 Other: Voiding Method Toilet Toilet # Voids 2 3 - Exam In general patient is alert and oriented x 3 in no distress HEENT head normocephalic and atraumatic Neck is supple no JVD no goiter no lymphadenopathy no carotid bruit Chest examination is clear to auscultation no crackles no wheezing Cardiac exam reveals regular heart sounds S1 and S2 no gallops no murmurs Abdomen is soft nontender no organomegaly with normal bowel sounds Extremity exam reveals no edema no cyanosis or clubbing Neurological examination reveals no gross focal deficits - Labs CBC & Chem 7: 01/16/23 20:18 01/16/23 20:18 Labs: Abnormal Lab Results - Last 24 Hours (Table) 01/17/23 01/17/23 01/17/23 Range/Units 10:39 17:16 19:58 POC Glucose (mg/dL) 138 H 155 H (70-110) mg/dL Iron 41 L (50-170) ug/dL % Saturation 10.11 L (12.00-45.00) 01/18/23 Range/Units 07:47 POC Glucose (mg/dL) 115 H (70-110) mg/dL Iron (50-170) ug/dL % Saturation (12.00-45.00) Assessment and Plan Plan: Generalized weakness Evidence of urinary tract infection, started on oral doxycycline Acute kidney injury with elevated BUN and creatinine, blood pressure medications are being adjusted by nephrology, patient is maintained on IV fluid Shortness of breath with any activity Difficulty swallowing with feeling food stuck in her throat, gastroenterology consultation requested, if not available patient will follow with gastro enterology as outpatient Elevated lactic acid Anemia on presentation, with evidence of iron deficiency, patient unable to tolerate oral iron, IV Venofer was ordered Known history of hypothyroidism maintained on Synthroid was decreased TSH at this time Underlying history of hypertension Underlying history of hyperlipidemia Underlying history of urb-kmnjvxs-ehriygtjq diabetes mellitus Underlying history of COPD, stable patient was evaluated and cleared by pulmonary Underlying history of obstructive sleep apnea Underlying history of coronary artery disease At this time patient is admitted to medical floor She was started on IV fluid and on oral antibiotic in the emergency room Home medications reviewed and reordered, at this time I will hold metformin, and decreased dose of Synthroid to 50 g daily Will monitor closely
[2023-01-18 11:20] LABS: African American GFR (CKD) 56.5 (60.0-200.0); Anion Gap 9.1 mmol/L (10.00-18.00); BUN/Creat Ratio 23.18 Ratio (12.00-20.00); Blood Urea Nitrogen 25.5 mg/dL (9.0-27.0); Carbon Dioxide 25.9 mmol/L (20.0-27.5); Magnesium 1.9 mg/dL (1.5-2.4); Non-African American GFR(CKD) 48.7 (60.0-200.0); Potassium 4.4 mmol/L (3.5-5.5)
[2023-01-18] MEDS ORDERED: SODIUM FERRIC GLUCONAT-SUCROSE 125 MG in SODIUM CHLORIDE 0.9% 100 ML IVPB ONE (12:00)
[2023-01-18 12:18] LABS: Glucose,Whole Blood 110 mg/dL (70-110)
--- NOTE | 2023-01-18 12:27 | P.PN ---
Subjective Progress Note Date: 01/18/23 This is a pleasant 77 showed female patient who follows with Dr. van as her primary care provider. She has a history of coronary artery disease with previous coronary artery bypass grafting, previous stent placement, diabetes mellitus, hypothyroidism, hypertension, hyperlipidemia, chronic obstructive pulmonary disease from 30 years of smoking. She is maintained on Symbicort and albuterol along with oxygen at nighttime. She follows with a asset protection associate [facility] She presented here to the emergency room last evening with the complaint of generalized weakness and fatigue that have been progressing over the past week. She feels exhausted. She is dyspneic on exertion. Some abdominal pain and cramping with intermittent diarrhea. Chest x- ray revealed some mild atelectasis of the left base. No overt heart failure. Mild chronic elevation of the right hemidiaphragm. White count 7.8. Hemoglobin 9.7. Platelets 342. D-dimer 0.39. Sodium 136. Potassium 4.6. Bicarb 26. BUN 36. Creatinine 1.51. Glucose 142. TSH less than 0.015. Free T4 1 0.14. Urinalysis clean. Ultrasound of the kidneys/renal and bladder revealed no evidence of hydronephrosis. No nephrolithiasis. No solid masses identified. The urinary bladder is anechoic. She is seen today in consultation on the regular medical floor. Currently laying comfortable in bed. Awake and alert in no acute distress. Maintaining good O2 saturations in the 90s on 2 L/m per nasal cannula. Normal saline at 75 mls per hour. She is on Symbicort and albuterol. Empiric antibiotics in the form of doxycycline. The patient is seen today 01/18/2023 in follow-up on the regular medical floor. She is currently resting comfortably in bed. Awake and alert in no acute distress. Less weak today compared to yesterday. Still some fatigue on minimal exertion. Maintaining O2 saturations in the 90s on 2 L/m per nasal cannula. She says some mild wheezing. Normal saline at 75 ML's per hour. Sodium 143. P otassium 4.4. Bicarb 26. BUN 25. Creatinine 1.1. Glucose 109. She is continued on Symbicort, albuterol, empiric antibiotics in the form of doxycycline. Objective - Vital Signs Vital signs: Vital Signs Temp 98.2 F 01/18/23 08:00 Pulse 74 01/18/23 08:00 Resp 18 01/18/23 08:00 BP 144/76 01/18/23 08:00 Pulse Ox 97 01/18/23 08:19 FiO2 Intake & Output 01/17/23 01/18/23 01/18/23 18:59 06:59 18:59 Intake Total 900 1400 Balance 900 1400 Intake: Intake, IV Titration 900 900 Amount Sodium Chloride 0.9% 1, 900 900 000 ml @ 75 mls/hr IV . [id number] [facility] Rx#:[id number] Oral 500 Other: Voiding Method Toilet Toilet # Voids 2 3 # Bowel Movements 1 - Exam GENERAL EXAM: Alert, active, 77-year-old female, on 2 L nasal cannula, comfortable in no apparent distress. HEAD: Normocephalic. EYES: Normal reaction of pupils, equal size. NOSE: Clear with pink turbinates. THROAT: No erythema or exudates. NECK: No masses, no JVD. CHEST: No chest wall deformity. LUNGS: Equal air entry with forced end expiratory wheeze on exhalation. CVS: S1 and S2 normal with no audible murmur, regular rhythm. ABDOMEN: No hepatosplenomegaly, normal bowel sounds, no guarding or rigidity. SPINE: No scoliosis or deformity SKIN: No rashes CENTRAL NERVOUS SYSTEM: No focal deficits, tone is normal in all 4 extremities. EXTREMITIES: There is no peripheral edema. No clubbing, no cyanosis. Peripheral pulses are intact. - Labs CBC & Chem 7: 01/16/23 20:18 01/18/23 07:12 Labs: Abnormal Lab Results - Last 24 Hours (Table) 01/17/23 01/17/23 01/17/23 Range/Units 10:39 17:16 19:58 Anion Gap (10.00-18.00) mmol/L Est GFR (CKD-EPI)AfAm (60.0-200.0) Est GFR (CKD-EPI)NonAf (60.0-200.0) BUN/Creatinine Ratio (12.00-20.00) Ratio POC Glucose (mg/dL) 138 H 155 H (70-110) mg/dL Iron 41 L (50-170) ug/dL % Saturation 10.11 L (12.00-45.00) 01/18/23 01/18/23 Range/Units 07:12 07:47 Anion Gap 9.10 L (10.00-18.00) mmol/L Est GFR (CKD-EPI)AfAm 56.5 L (60.0-200.0) Est GFR (CKD-EPI)NonAf 48.7 L (60.0-200.0) BUN/Creatinine Ratio 23.18 H (12.00-20.00) Ratio POC Glucose (mg/dL) 115 H (70-110) mg/dL Iron (50-170) ug/dL % Saturation (12.00-45.00) Assessment and Plan Assessment: Generalized weakness suspect secondary to diarrhea and dehydration Acute kidney injury secondary to above Dysphagia of unclear etiology Anemia of unclear etiology, current hemoglobin 9.7 Hypothyroidism with current TSH less than 0.015, dose adjusted Chronic obstructive pulmonary disease, currently inactive in stable Former smoker Coronary disease with previous stent placement and previous bypass grafting Hypertension Hyperlipidemia Diabetes mellitus Obstructive sleep apnea, intolerant to CPAP therapy Plan: The patient was seen and evaluated Labs and medications reviewed Continue Symbicort, albuterol Doxycycline empirically Continue fluid resuscitation Titrate the FiO2 as needed We'll continue to follow I have personally seen and examined the patient, performed the documentation and the assessment and plan as written. Number of minutes spent on the visit: 10.
--- NOTE | 2023-01-18 12:46 | CA ---
Transthoracic Echo Report Name: Hodan Jacobs Age: 77 Gender: F : 1945 Exam Date: 01/18/2023 07:46 Exam Location: [facility] Ht (in): 61 Wt (lb): 140 Ordering Physician: Marc Quintanilla MD Attending/Referring Phys: Streetcar Operator Tracy Fry RDCS Procedure CPT: Indications: SHORTNESS OF BREATH Cardiac Hx: Technical Quality: Contrast 1: Total Dose (mL): Contrast 2: Total Dose (mL): MEASUREMENTS (Male / Female) Normal Values 2D ECHO LV Diastolic Diameter PLAX 4.9 cm 4.2 - 5.9 / 3.9 - 5.3 cm LV Systolic Diameter PLAX 3.1 cm IVS Diastolic Thickness 1.0 cm 0.6 - 1.0 / 0.6 - 0.9 cm LVPW Diastolic Thickness 1.1 cm 0.6 - 1.0 / 0.6 - 0.9 cm LV Relative Wall Thickness 0.4 RV Internal Dim ED PLAX 3.8 cm LA Systolic Diameter LX 4.3 cm 3.0 - 4.0 / 2.7 - 3.8 cm LV Diastolic Volume MOD BP 63.6 cm??? 67 - 155 / 56 - 104 cm??? LV Systolic Volume MOD BP 25.1 cm??? 22 - 58 / 19 - 49 cm??? LV Ejection Fraction MOD BP 60.6 % >= 55 % LV Diastolic Volume MOD 4C 65.8 cm??? LV Systolic Volume MOD 4C 26.8 cm??? LV Ejection Fraction MOD 4C 59.3 % LV Diastolic Length 4C 6.6 cm LV Systolic Length 4C 6.1 cm LV Diastolic Volume MOD 2C 57.1 cm??? LV Systolic Volume MOD 2C 19.9 cm??? LV Ejection Fraction MOD 2C 65.2 % LV Diastolic Length 2C 5.9 cm LV Systolic Length 2C 5.0 cm LA Volume 62.2 cm??? 18 - 58 / 22 - 52 cm??? M-MODE Aortic Root Diameter MM 2.6 cm MV E Point Septal Separation 0.6 cm AV Cusp Separation MM 1.9 cm DOPPLER AV Peak Velocity 119.2 cm/s AV Peak Gradient 5.7 mmHg MV Peak Velocity 150.5 cm/s MV Peak Gradient 9.1 mmHg MV Mean Velocity 90.7 cm/s MV Mean Gradient 3.7 mmHg MV Velocity Time Integral 30.4 cm MV Area PHT 8.2 cm??? Mitral E Point Velocity 113.0 cm/s Mitral A Point Velocity 113.0 cm/s Mitral E to A Ratio 1.0 MV Deceleration Time 92.4 ms MV E' Velocity 7.7 cm/s Mitral E to MV E' Ratio 14.6 TR Peak Velocity 324.8 cm/s TR Peak Gradient 42.2 mmHg Right Ventricular Systolic Press 46.7 mmHg FINDINGS Left Ventricle Left ventricular ejection fraction is estimated at 55-60 %. Mildly increased posterior wall thickness. Left ventricular cavity size normal. Right Ventricle Moderate right ventricular dilatation. Moderate pulmonary hypertension. Reduced right ventricular global systolic function. Right Atrium Right atrium not well visualized. Left Atrium Moderately increased left atrial diameter. Mildly increased left atrial volume. Mitral Valve Mitral valve thickened. Mitral annular calcification. Moderate mitral regurgitation. Aortic Valve Trileaflet aortic valve. No aortic valve stenosis or regurgitation. Tricuspid Valve Structurally normal tricuspid valve. Moderate tricuspid regurgitation. Pulmonic Valve Structurally normal pulmonic valve. No pulmonic regurgitation. Pericardium Normal pericardium. No pericardial effusion. Aorta Normal size aortic root and proximal ascending aorta. CONCLUSIONS Normal LV systolic function. Mild concentric LVH Moderate mitral regurgitation Moderate tricuspid regurgitation Aortic sclerosis Previewed by: Dr. Andrey Dye MD (Electronically Signed) Final Date: 18 January 2023 12:45
--- NOTE | 2023-01-18 13:14 | P.PN ---
Subjective Patient is seen for follow-up for acute kidney injury. Renal function has improved with IV hydration and creatinine is down to 1.1 from 1.5 on 01/16/2023 No complaints today Objective - Vital Signs Vital signs: Vital Signs Temp 98.2 F 01/18/23 08:00 Pulse 74 01/18/23 08:00 Resp 18 01/18/23 08:00 BP 144/76 01/18/23 08:00 Pulse Ox 97 01/18/23 08:19 FiO2 Intake & Output 01/17/23 01/18/23 01/18/23 18:59 06:59 18:59 Intake Total 900 1400 100 Balance 900 1400 100 Intake: Intake, IV Titration 900 900 100 Amount Sodium Chloride 0.9% 1, 900 900 000 ml @ 75 mls/hr IV . [id number] [facility] Rx#:[id number] Sodium Ferric Gluconat- 100 Sucrose 125 mg In Sodium Chloride 0.9% 100 ml @ 100 mls/hr IVPB ONCE ONE Rx#:[id number] Oral 500 Other: Voiding Method Toilet Toilet # Voids 2 3 # Bowel Movements 1 - Exam Patient is awake, comfortable, no acute distress Examination of the heart S1 and S2 Examination of the lungs bilateral breath sounds are heard Abdomen is soft nontender Examination of the lower extremities shows no significant edema - Labs CBC & Chem 7: 01/16/23 20:18 01/18/23 07:12 Labs: Abnormal Lab Results - Last 24 Hours (Table) 01/17/23 01/17/23 01/17/23 Range/Units 10:39 17:16 19:58 Anion Gap (10.00-18.00) mmol/L Est GFR (CKD-EPI)AfAm (60.0-200.0) Est GFR (CKD-EPI)NonAf (60.0-200.0) BUN/Creatinine Ratio (12.00-20.00) Ratio POC Glucose (mg/dL) 138 H 155 H (70-110) mg/dL Iron 41 L (50-170) ug/dL % Saturation 10.11 L (12.00-45.00) 01/18/23 01/18/23 Range/Units 07:12 07:47 Anion Gap 9.10 L (10.00-18.00) mmol/L Est GFR (CKD-EPI)AfAm 56.5 L (60.0-200.0) Est GFR (CKD-EPI)NonAf 48.7 L (60.0-200.0) BUN/Creatinine Ratio 23.18 H (12.00-20.00) Ratio POC Glucose (mg/dL) 115 H (70-110) mg/dL Iron (50-170) ug/dL % Saturation (12.00-45.00) Assessment and Plan Assessment: 1. Acute kidney injury mostly prerenal secondary to hypovolemia and diuresis. Creatinine 1.51 on admissio, decreased to 1.1 today. UA benign. 2. Chronic kidney disease stage II with baseline creatinine near 1 secondary to nephrosclerosis. 3. Lactic acidosis secondary to hypovolemia/hypotension. 4. Diabetes mellitus Plan: Repeat labs in a.m. Continue with IV fluids Encourage increased oral intake.
[2023-01-18] MEDS ORDERED: CALCIUM CARBONATE 500 MG CHEWABLE PO PRN (17:07)
[2023-01-18 17:17] LABS: Glucose,Whole Blood 137 mg/dL (70-110)
[2023-01-18 19:55] LABS: Glucose,Whole Blood 207 mg/dL (70-110)
[2023-01-18] MEDS: LORazepam 1 MG TAB PO SCH (21:41)
[2023-01-18] MEDS: ATORVASTATIN 80 MG TAB PO SCH (21:41)
[2023-01-19] MEDS: ACETAMINOPHEN TAB 325 MG TAB PO PRN ×2 (00:38→21:01)
[2023-01-19] MEDS: SODIUM CHLORIDE 0.9% 1,000 ML IV SCH (06:38)
[2023-01-19] MEDS: LEVOTHYROXINE 50 MCG TAB PO SCH (06:38)
[2023-01-19 07:09] LABS: Glucose,Whole Blood 122 mg/dL (70-110)
[2023-01-19] MEDS: INSULIN ASPART (NovoLOG) 100 UNIT/ML VIAL SQ SCH ×4 (07:29→20:58)
[2023-01-19] MEDS: ALBUTEROL NEBULIZED 2.5 MG/3 ML INHALATION PRN (08:42)
[2023-01-19] MEDS: SYMBICORT 160-4.5 MCG INHALER INHALATION SCH ×2 (08:42→18:43)
[2023-01-19] MEDS ORDERED: BUMETANIDE 0.25 MG/ML 4 ML VIAL IVP STA (09:50)
--- NOTE | 2023-01-19 09:56 | P.PN ---
Subjective Progress Note Date: 01/19/23 Hodan Jacobs, is a 77 -year-old female who presented to [facility] emergency room with a chief complaint of generalized weakness She was evaluated in the emergency room vital examination on presentation revealed a temperature of 98.1 pulse 82 respiration 24 blood pressure 147/70 pulse ox 96% on room air Laboratory data revealed a white blood count of 7.8 hemoglobin 9.7 platelet count 342 sodium 136 potassium 4.6 chloride 100 CO2 26 BUN 36 creatinine 1.51 creatinine was 1.3 on 01/02/2023 lactic acid was elevated at 2.6 troponin normal at 0.012 TSH was low at 0.015 urine analysis was positive for leukocyte esterase Testing in the emergency room revealed chest x-ray done in the emergency room revealed mild atelectasis in the left lung and chronic elevation in the right diaphragm, EKG revealed sinus rhythm with 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 Patient was admitted to medical floor for further evaluation and treatment Past medical history is significant for history of hypertension, history of hypothyroidism, history of hyperlipidemia, history of coronary artery disease, history of nhb-iyzbowo-ccixigmam diabetes mellitus, history of obstructive sleep apnea. On review of systems patient is alert and oriented 3 in no apparent distress there is no fever or chills no headache or dizziness no chest pain , she is complaining of shortness of breath no cough no nausea or vomiting no abdominal pain no diarrhea and no urinary symptoms. 01/18/2023 patient was seen and examined on the medical she is alert and oriented 3 in no apparent distress she is still complaining of severe generalized weakness and complaining of shortness of breath with activity, patient has evidence of urinary tract infection, evidence of iron deficiency anemia, acute on chronic renal failure, and known history of coronary artery disease, echocardiogram is still pending, physical therapy occupational therapy consult, IV iron, labs today are still pending, will follow closely. on 01/19/2023 patient is alert and oriented 3. Patient complaining of incre ased shortness of breath and wheezing. Discussed case with nephrology services will order 1 time dose of IV Bumex and DC IV fluids. Chest x-ray also ordered. Patient denies chest pain. Patient denies nausea vomiting or diarrhea. Patient denies any urinary burning or frequency Objective - Vital Signs Vital signs: Vital Signs Temp 98.4 F 01/19/23 07:10 Pulse 82 03/26/23 08:56 Resp 20 01/19/23 07:10 BP 171/93 01/19/23 07:10 Pulse Ox 99 01/19/23 08:42 FiO2 Intake & Output 01/18/23 01/19/23 01/19/23 18:59 06:59 18:59 Intake Total 220 590 Balance 220 590 Intake: Intake, IV Titration 100 Amount Sodium Ferric Gluconat- 100 Sucrose 125 mg In Sodium Chloride 0.9% 100 ml @ 100 mls/hr IVPB ONCE ONE Rx#:[id number] Oral 120 590 Other: Voiding Method Toilet # Voids 3 3 # Bowel Movements 1 0 - Exam In general patient is alert and oriented x 3 in no distress HEENT head normocephalic and atraumatic Neck is supple no JVD no goiter no lymphadenopathy no carotid bruit Chest examination is clear to auscultation no crackles no wheezing Cardiac exam reveals regular heart sounds S1 and S2 no gallops no murmurs Abdomen is soft nontender no organomegaly with normal bowel sounds Extremity exam reveals no edema no cyanosis or clubbing Neurological examination reveals no gross focal deficits - Labs CBC & Chem 7: 01/16/23 20:18 01/18/23 07:12 Labs: Abnormal Lab Results - Last 24 Hours (Table) 01/18/23 01/18/23 01/18/23 Range/Units 07:12 17:16 19:54 Anion Gap 9.10 L (10.00-18.00) mmol/L Est GFR (CKD-EPI)AfAm 56.5 L (60.0-200.0) Est GFR (CKD-EPI)NonAf 48.7 L (60.0-200.0) BUN/Creatinine Ratio 23.18 H (12.00-20.00) Ratio POC Glucose (mg/dL) 137 H 207 H (70-110) mg/dL 01/19/23 Range/Units 07:08 Anion Gap (10.00-18.00) mmol/L Est GFR (CKD-EPI)AfAm (60.0-200.0) Est GFR (CKD-EPI)NonAf (60.0-200.0) BUN/Creatinine Ratio (12.00-20.00) Ratio POC Glucose (mg/dL) 122 H (70-110) mg/dL Assessment and Plan Plan: Generalized weakness Evidence of urinary tract infection, started on oral doxycycline Acute kidney injury with elevated BUN and creatinine, blood pressure medications are being adjusted by nephrology, patient is maintained on IV fluid Shortness of breath with any activity Difficulty swallowing with feeling food stuck in her throat, gastroenterology consultation requested, if not available patient will follow with gastroenterology as outpatient Elevated lactic acid Anemia on presentation, with evidence of iron deficiency, patient unable to tolerate oral iron, IV Venofer was ordered Known history of hypothyroidism maintained on Synthroid was decreased TSH at this time Underlying history of hypertension Underlying history of hyperlipidemia Underlying history of fvv-neqopnc-qrqavfuei diabetes mellitus Underlying history of COPD, stable patient was evaluated and cleared by pulmonary Underlying history of obstructive sleep apnea Underlying history of coronary artery disease increased shortness of breath 1 dose of IV Bumex ordered chest x-ray ordered At this time patient is admitted to medical floor She was started on IV fluid and on oral antibiotic in the emergency room Home medications reviewed and reordered, at this time I will hold metformin, and decreased dose of Synthroid to 50 g daily Will monitor closely
[2023-01-19] MEDS: MULTIVITAMINS, THERA 1 EACH TAB PO SCH (10:15)
[2023-01-19] MEDS: ASCORBIC ACID 500 MG TAB PO SCH (10:16)
[2023-01-19] MEDS: LORazepam 0.5 MG TAB PO SCH (10:16)
[2023-01-19] MEDS: PANTOPRAZOLE 40 MG TABLET PO SCH (10:16)
[2023-01-19] MEDS: DULoxetine HCL 60 MG CAPSULE.DR PO SCH (10:16)
[2023-01-19] MEDS: METOPROLOL TARTRATE 50 MG TAB PO SCH ×2 (10:16→20:58)
[2023-01-19] MEDS: DICYCLOMINE 20 MG TAB PO SCH ×4 (10:16→20:59)
[2023-01-19] MEDS: LORATADINE 10 MG TAB PO SCH (10:16)
[2023-01-19] MEDS: CLOPIDOGREL 75 MG TAB PO SCH (10:17)
[2023-01-19] MEDS: RANOLAZINE 500 MG TAB.ER.12H PO SCH ×2 (10:17→20:58)
[2023-01-19] MEDS: DOXYCYCLINE 50 MG CAP PO SCH (10:17)
[2023-01-19] MEDS: NITROGLYCERIN 0.4MG/HR PATCH TRANSDERM SCH (10:18)
[2023-01-19 11:11] LABS: Glucose,Whole Blood 115 mg/dL (70-110)
--- NOTE | 2023-01-19 11:27 | XR ---
EXAMINATION TYPE: XR chest 1V portable DATE OF EXAM: 01/19/2023 COMPARISON: 01/16/2023 INDICATION: Increased wheezing TECHNIQUE: Single frontal view of the chest is obtained. FINDINGS: The heart size is normal. The pulmonary vasculature is somewhat prominent. Mild scattered diffuse increased lung markings are present. This is more focal and linear at the left base. Correlate for plate atelectasis. There is elevation of the right diaphragm which appears stable from prior. IMPRESSION: 1. Clinical correlation recommended for atelectasis or atypical pneumonia. Some platelike atelectasis at the left base.
--- NOTE | 2023-01-19 11:40 | P.PN ---
Subjective Progress Note Date: 01/19/23 This is a pleasant 77 showed female patient who follows with Dr. van as her primary care provider. She has a history of coronary artery disease with previous coronary artery bypass grafting, previous stent placement, diabetes mellitus, hypothyroidism, hypertension, hyperlipidemia, chronic obstructive pulmonary disease from 30 years of smoking. She is maintained on Symbicort and albuterol along with oxygen at nighttime. She follows with a cork insulation setter out of the [facility] system. She presented here to the emergency room last evening with the complaint of generalized weakness and fatigue that have been progressing over the past week. She feels exhausted. She is dyspneic on exertion. Some abdominal pain and cramping with intermittent diarrhea. Chest x- ray revealed some mild atelectasis of the left base. No overt heart failure. Mild chronic elevation of the right hemidiaphragm. White count 7.8. Hemoglobin 9.7. Platelets 342. D-dimer 0.39. Sodium 136. Potassium 4.6. Bicarb 26. BUN 36. Creatinine 1.51. Glucose 142. TSH less than 0.015. Free T4 1 0.14. Urinalysis clean. Ultrasound of the kidneys/renal and bladder revealed no evidence of hydronephrosis. No nephrolithiasis. No solid masses identified. The urinary bladder is anechoic. She is seen today in consultation on the regular medical floor. Currently laying comfortable in bed. Awake and alert in no acute distress. Maintaining good O2 saturations in the 90s on 2 L/m per nasal cannula. Normal saline at 75 mls per hour. She is on Symbicort and albuterol. Empiric antibiotics in the form of doxycycline. The patient is seen today 01/18/2023 in follow-up on the regular medical floor. She is currently resting comfortably in bed. Awake and alert in no acute distress. Less weak today compared to yesterday. Still some fatigue on minimal exertion. Maintaining O2 saturations in the 90s on 2 L/m per nasal cannula. She says some mild wheezing. Normal saline at 75 ML's per hour. Sodium 143. P otassium 4.4. Bicarb 26. BUN 25. Creatinine 1.1. Glucose 109. She is continued on Symbicort, albuterol, empiric antibiotics in the form of doxycycline. The patient is seen today 01/19/2023 in follow-up on the regular medical floor. She is currently resting comfortably in bed. Still with some complaints of shortness of breath and wheezing. Maintaining good O2 saturations in the high 90s on 2 L/m per nasal cannula. She is continued on Symbicort and albuterol. Antibiotics in the form of doxycycline. Chest x-ray reveals evidence of atelectasis of the lung bases. Blood sugar 115. Objective - Vital Signs Vital signs: Vital Signs Temp 98.4 F 01/19/23 07:10 Pulse 82 01/19/23 08:56 Resp 20 01/19/23 07:10 BP 171/93 01/19/23 07:10 Pulse Ox 99 01/19/23 08:42 FiO2 Intake & Output 01/18/23 01/19/23 01/19/23 18:59 06:59 18:59 Intake Total 220 590 Balance 220 590 Intake: Intake, IV Titration 100 Amount Sodium Ferric Gluconat- 100 Sucrose 125 mg In Sodium Chloride 0.9% 100 ml @ 100 mls/hr IVPB ONCE ONE Rx#:[id number] Oral 120 590 Other: Voiding Method Toilet # Voids 3 3 # Bowel Movements 1 0 - Exam GENERAL EXAM: Alert, 77-year-old female, on 2 L nasal cannula, comfortable in no apparent distress. HEAD: Normocephalic. EYES: Normal reaction of pupils, equal size. NOSE: Clear with pink turbinates. THROAT: No erythema or exudates. NECK: No masses, no JVD. CHEST: No chest wall deformity. LUNGS: Equal air entry with forced end expiratory wheeze on exhalation. CVS: S1 and S2 normal with no audible murmur, regular rhythm. ABDOMEN: No hepatosplenomegaly, normal bowel sounds, no guarding or rigidity. SPINE: No scoliosis or deformity SKIN: No rashes CENTRAL NERVOUS SYSTEM: No focal deficits, tone is normal in all 4 extremities. EXTREMITIES: There is no peripheral edema. No clubbing, no cyanosis. Peripheral pulses are intact. - Labs CBC & Chem 7: 01/16/23 20:18 01/18/23 07:12 Labs: Abnormal Lab Results - Last 24 Hours (Table) 01/18/23 01/18/23 01/19/23 Range/Units 17:16 19:54 07:08 POC Glucose (mg/dL) 137 H 207 H 122 H (70-110) mg/dL 01/19/23 Range/Units 11:10 POC Glucose (mg/dL) 115 H (70-110) mg/dL Assessment and Plan Assessment: Generalized weakness suspect secondary to diarrhea and dehydration Acute kidney injury secondary to above Dysphagia of unclear etiology Anemia of unclear etiology, current hemoglobin 9.7 Hypothyroidism with current TSH less than 0.015, dose adjusted Chronic obstructive pulmonary disease, currently inactive in stable Former smoker Coronary disease with previous stent placement and previous bypass grafting Hypertension Hyperlipidemia Diabetes mellitus Obstructive sleep apnea, intolerant to CPAP therapy Plan: The patient was seen and evaluated Chest x-ray, labs and medications reviewed Bumex 1 mg IVP 1. IV to KVO. Continue Symbicort, albuterol, Doxycycline Titrate the FiO2 as needed We'll continue to follow I have personally seen and examined the patient, performed the documentation and the assessment and plan as written. Number of minutes spent on the visit: 10.
[2023-01-19 11:44] LABS: Basophils # (A) 0.05 X 10*3/uL (0.00-0.10); Basophils % (A) 0.8 %; Eosinophils # (A) 0.38 X 10*3/uL (0.04-0.35); Eosinophils % (A) 5.7 %; HCT 27.5 % (37.2-46.3); HGB 8.3 g/dL (12.0-15.0); Immature Grans, Automated 1.5 %; Lymphocytes # (A) 1.33 X 10*3/uL (0.90-5.00); MCH 30.1 pg (27.0-32.0); MCHC 30.2 g/dL (32.0-37.0); MCV 99.6 fL (80.0-97.0); Mean Platelet Volume 9.7 fL (9.5-12.2); Monocytes # (A) 0.89 X 10*3/uL (0.20-1.00); Monocytes % (A) 13.4 %; NRBC Per 100 WBC 0.3 /100 WBCS (0.0-0.0); Neutrophils # (A) 3.89 X 10*3/uL (1.80-7.70); Neutrophils % (A) 58.6 %; Platelet Count 310 X 10*3/uL (140-440); RBC 2.76 X 10*6/uL (4.10-5.20); WBC 6.64 X 10*3/uL (4.50-10.00)
[2023-01-19 11:59] LABS: ALT 22 U/L (8-44); AST 14 U/L (13-35); African American GFR (CKD) 56.5 (60.0-200.0); Albumin 3.7 g/dL (3.8-4.9); Albumin/Globulin Ratio 1.95 (1.60-3.17); Alkaline Phosphatase 57 U/L (41-126); BUN/Creat Ratio 15.18 Ratio (12.00-20.00); Blood Urea Nitrogen 16.7 mg/dL (9.0-27.0); Calcium 8.9 mg/dL (8.7-10.3); Carbon Dioxide 23.5 mmol/L (20.0-27.5); Chloride 111 mmol/L (96-109); Globulin 1.9 g/dL (1.6-3.3); Glucose 126 mg/dL (70-110); Non-African American GFR(CKD) 48.7 (60.0-200.0); Potassium 4.4 mmol/L (3.5-5.5); Sodium 143 mmol/L (135-145); Total Bilirubin <0.15 mg/dL (0.30-1.20); Total Protein 5.6 g/dL (6.2-8.2)
--- NOTE | 2023-01-19 12:47 | P.PN ---
Subjective Patient is seen for follow-up for acute kidney injury. Renal function has improved with IV hydration and creatinine is down to 1.1 from 1.5 on 01/16/2023 Patient is complaining of increased shortness of breath today. She states that she feels swollen. Status post IV Lasix this morning. IV fluids have been discontinued. Objective - Vital Signs Vital signs: Vital Signs Temp 98.2 F 01/19/23 12:27 Pulse 74 01/19/23 12:27 Resp 20 01/19/23 12:27 BP 154/67 01/19/23 12:27 Pulse Ox 98 01/19/23 12:27 FiO2 Intake & Output 01/18/23 01/19/23 01/19/23 18:59 06:59 18:59 Intake Total 220 590 Balance 220 590 Intake: Intake, IV Titration 100 Amount Sodium Ferric Gluconat- 100 Sucrose 125 mg In Sodium Chloride 0.9% 100 ml @ 100 mls/hr IVPB ONCE ONE Rx#:[id number] Oral 120 590 Other: Voiding Method Toilet # Voids 3 3 # Bowel Movements 1 0 - Exam Patient is awake, comfortable, no acute distress Examination of the heart S1 and S2 Examination of the lungs bilateral breath sounds are heard Abdomen is soft nontender Examination of the lower extremities shows no significant edema SENIOR OCCUPATIONAL THERAPIST exam grossly intact - Labs CBC & Chem 7: 01/19/23 07:55 01/19/23 07:55 Labs: Abnormal Lab Results - Last 24 Hours (Table) 01/18/23 01/18/23 01/19/23 Range/Units 17:16 19:54 07:08 RBC (4.10-5.20) X 10*6/uL Hgb (12.0-15.0) g/dL Hct (37.2-46.3) % MCV (80.0-97.0) fL MCHC (32.0-37.0) g/dL Absolute Nucleated RBC (0.00-0.00) X 10*3/uL Immature Gran # (0.00-0.04) X 10*3/uL Eosinophils # (0.04-0.35) X 10*3/uL NRBC/100 WBC Diff (0.0-0.0) /100 WBCS Chloride (96-109) mmol/L Anion Gap (10.00-18.00) mmol/L Est GFR (CKD-EPI)AfAm (60.0-200.0) Est GFR (CKD-EPI)NonAf (60.0-200.0) Glucose (70-110) mg/dL POC Glucose (mg/dL) 137 H 207 H 122 H (70-110) mg/dL Total Bilirubin (0.30-1.20) mg/dL Total Protein (6.2-8.2) g/dL Albumin (3.8-4.9) g/dL 01/19/23 01/19/23 01/19/23 Range/Units 07:55 07:55 11:10 RBC 2.76 L (4.10-5.20) X 10*6/uL Hgb 8.3 L (12.0-15.0) g/dL Hct 27.5 L (37.2-46.3) % MCV 99.6 H (80.0-97.0) fL MCHC 30.2 L (32.0-37.0) g/dL Absolute Nucleated RBC 0.02 H (0.00-0.00) X 10*3/uL Immature Gran # 0.10 H (0.00-0.04) X 10*3/uL Eosinophils # 0.38 H (0.04-0.35) X 10*3/uL NRBC/100 WBC Diff 0.3 H (0.0-0.0) /100 WBCS Chloride 111 H (96-109) mmol/L Anion Gap 8.50 L (10.00-18.00) mmol/L Est GFR (CKD-EPI)AfAm 56.5 L (60.0-200.0) Est GFR (CKD-EPI)NonAf 48.7 L (60.0-200.0) Glucose 126 H (70-110) mg/dL POC Glucose (mg/dL) 115 H (70-110) mg/dL Total Bilirubin <0.15 L (0.30-1.20) mg/dL Total Protein 5.6 L (6.2-8.2) g/dL Albumin 3.7 L (3.8-4.9) g/dL Assessment and Plan Assessment: 1. Acute kidney injury mostly prerenal secondary to hypovolemia and diuresis. Creatinine 1.51 on admission, decreased to 1.1 today. UA benign. IV fluids discontinued today secondary to volume overload 2. Chronic kidney disease stage II with baseline creatinine near 1 secondary to nephrosclerosis. 3. Lactic acidosis secondary to hypovolemia/hypotension. 4. Diabetes mellitus 5. Volume overload Plan: DC IV fluids Agree with IV Lasix May repeat another dose of Lasix later on today depending on respiratory status.
[2023-01-19 17:01] LABS: Glucose,Whole Blood 134 mg/dL (70-110)
[2023-01-19 20:54] LABS: Glucose,Whole Blood 141 mg/dL (70-110)
[2023-01-19] MEDS: LORazepam 1 MG TAB PO SCH (20:58)
[2023-01-19] MEDS: ATORVASTATIN 80 MG TAB PO SCH (20:58)
[2023-01-20] MEDS: LEVOTHYROXINE 50 MCG TAB PO SCH (06:02)
[2023-01-20 07:10] LABS: Glucose,Whole Blood 140 mg/dL (70-110)
[2023-01-20] MEDS: INSULIN ASPART (NovoLOG) 100 UNIT/ML VIAL SQ SCH ×4 (07:24→21:17)
[2023-01-20] MEDS: SYMBICORT 160-4.5 MCG INHALER INHALATION SCH ×2 (08:44→20:03)
[2023-01-20] MEDS: DULoxetine HCL 60 MG CAPSULE.DR PO SCH (08:52)
[2023-01-20] MEDS: MULTIVITAMINS, THERA 1 EACH TAB PO SCH (08:52)
[2023-01-20] MEDS: PANTOPRAZOLE 40 MG TABLET PO SCH (08:52)
[2023-01-20] MEDS: METOPROLOL TARTRATE 50 MG TAB PO SCH ×2 (08:52→21:10)
[2023-01-20] MEDS: DOXYCYCLINE 50 MG CAP PO SCH (08:52)
[2023-01-20] MEDS: DICYCLOMINE 20 MG TAB PO SCH ×4 (08:52→21:10)
[2023-01-20] MEDS: RANOLAZINE 500 MG TAB.ER.12H PO SCH ×2 (08:52→21:10)
[2023-01-20] MEDS: CLOPIDOGREL 75 MG TAB PO SCH (08:52)
[2023-01-20] MEDS: LORATADINE 10 MG TAB PO SCH (08:52)
[2023-01-20] MEDS: LORazepam 0.5 MG TAB PO SCH (08:52)
[2023-01-20] MEDS: NITROGLYCERIN 0.4MG/HR PATCH TRANSDERM SCH (08:53)
[2023-01-20] MEDS: ASCORBIC ACID 500 MG TAB PO SCH (08:53)
[2023-01-20] MEDS: ALBUTEROL NEBULIZED 2.5 MG/3 ML INHALATION PRN ×2 (08:58→16:27)
[2023-01-20 09:23] LABS: Basophils # (A) 0.04 X 10*3/uL (0.00-0.10); Basophils % (A) 0.5 %; Eosinophils % (A) 3.5 %; HGB 8.4 g/dL (12.0-15.0); Immature Grans, Automated 1.1 %; Lymphocytes # (A) 1.49 X 10*3/uL (0.90-5.00); Lymphocytes % (A) 17.5 %; MCH 30.2 pg (27.0-32.0); MCV 100.7 fL (80.0-97.0); Mean Platelet Volume 9.5 fL (9.5-12.2); Monocytes % (A) 12.9 %; NRBC Per 100 WBC 0 /100 WBCS (0.0-0.0); Neutrophils % (A) 64.5 %; Platelet Count 321 X 10*3/uL (140-440); RBC 2.78 X 10*6/uL (4.10-5.20); WBC 8.52 X 10*3/uL (4.50-10.00)
[2023-01-20 09:31] LABS: African American GFR (CKD) 50.8 (60.0-200.0); Albumin 3.7 g/dL (3.8-4.9); Albumin/Globulin Ratio 1.68 (1.60-3.17); Anion Gap 10.2 mmol/L (10.00-18.00); BUN/Creat Ratio 12.83 Ratio (12.00-20.00); Blood Urea Nitrogen 15.4 mg/dL (9.0-27.0); Calcium 9.3 mg/dL (8.7-10.3); Carbon Dioxide 25.8 mmol/L (20.0-27.5); Globulin 2.2 g/dL (1.6-3.3); Non-African American GFR(CKD) 43.9 (60.0-200.0); Potassium 4.9 mmol/L (3.5-5.5); Total Bilirubin 0.3 mg/dL (0.30-1.20); Total Protein 5.9 g/dL (6.2-8.2)
[2023-01-20 11:57] LABS: Glucose,Whole Blood 112 mg/dL (70-110)
[2023-01-20] MEDS ORDERED: SODIUM FERRIC GLUCONAT-SUCROSE 125 MG in SODIUM CHLORIDE 0.9% 100 ML IVPB ONE (12:39)
[2023-01-20] MEDS ORDERED: FUROSEMIDE 10 MG/ML 4 ML VIAL IV STA (14:16)
--- NOTE | 2023-01-20 14:32 | P.PN ---
Subjective Progress Note Date: 01/20/23 This is a pleasant 77 showed female patient who follows with Dr. van as her primary care provider. She has a history of coronary artery disease with previous coronary artery bypass grafting, previous stent placement, diabetes mellitus, hypothyroidism, hypertension, hyperlipidemia, chronic obstructive pulmonary disease from 30 years of smoking. She is maintained on Symbicort and albuterol along with oxygen at nighttime. She follows with a farm equipment engine mechanic out of the [facility] system. She presented here to the emergency room last evening with the complaint of generalized weakness and fatigue that have been progressing over the past week. She feels exhausted. She is dyspneic on exertion. Some abdominal pain and cramping with intermittent diarrhea. Chest x- ray revealed some mild atelectasis of the left base. No overt heart failure. Mild chronic elevation of the right hemidiaphragm. White count 7.8. Hemoglobin 9.7. Platelets 342. D-dimer 0.39. Sodium 136. Potassium 4.6. Bicarb 26. BUN 36. Creatinine 1.51. Glucose 142. TSH less than 0.015. Free T4 1 0.14. Urinalysis clean. Ultrasound of the kidneys/renal and bladder revealed no evidence of hydronephrosis. No nephrolithiasis. No solid masses identified. The urinary bladder is anechoic. She is seen today in consultation on the regular medical floor. Currently laying comfortable in bed. Awake and alert in no acute distress. Maintaining good O2 saturations in the 90s on 2 L/m per nasal cannula. Normal saline at 75 mls per hour. She is on Symbicort and albuterol. Empiric antibiotics in the form of doxycycline. The patient is seen today 01/18/2023 in follow-up on the regular medical floor. She is currently resting comfortably in bed. Awake and alert in no acute distress. Less weak today compared to yesterday. Still some fatigue on minimal exertion. Maintaining O2 saturations in the 90s on 2 L/m per nasal cannula. She says some mild wheezing. Normal saline at 75 ML's per hour. Sodium 143. Potassium 4.4. Bicarb 26. BUN 25. Creatinine 1.1. Glucose 109. She is continued on Symbicort, albuterol, empiric antibiotics in the form of doxycycline. The patient is seen today 01/19/2023 in follow-up on the regular medical floor. She is currently resting comfortably in bed. Still with some complaints of shortness of breath and wheezing. Maintaining good O2 saturations in the high 90s on 2 L/m per nasal cannula. She is continued on Symbicort and albuterol. Antibiotics in the form of doxycycline. Chest x-ray reveals evidence of atelectasis of the lung bases. Blood sugar 115. On today's evaluation of the 2022, the patient still having difficulties with shortness of breath, bronchospasm and the patient is also on oxygen between 2 and 3 L/m nasal cannula. While on 2 L, pulse ox dropped down to 86% and had to bring it up to 3 L. The patient is otherwise doing well. No specific complaints for now. I wanted to put her on IV Solu-Medrol. Nevertheless, the patient is diabetic and she declined as she is aware that steroids will make her sugars elevated and she will not tolerate steroids because of other side effects including increased agitation or restlessness. Based on that, no systemic steroids and the provided. She is on Symbicort as maintenance 2 puffs twice a day, and return about treatments [id number] and the rest of the home medications and resume. She is receiving empiric antibiotic coverage with doxycycline. She is known to have CAD, previous bypass surgery, previous stenting, and as mentioned she is diabetic and she has hypertension and h yperlipidemia and hypothyroidism. Her farm equipment engine mechanic is Dr. Scott out of [facility]. Objective - Vital Signs Vital signs: Vital Signs Temp 98.6 F 01/20/23 11:41 Pulse 83 01/20/23 11:41 Resp 22 01/20/23 11:41 BP 131/75 01/20/23 11:41 Pulse Ox 95 01/20/23 11:41 FiO2 2 01/20/23 08:44 Intake & Output 01/19/23 01/20/23 01/20/23 18:59 06:59 18:59 Intake Total 600 Balance 600 Intake: Oral 600 Other: Voiding Method Toilet # Voids 6 3 # Bowel Movements 1 - Exam GENERAL EXAM: Alert, 77-year-old female, on 2-3 L nasal cannula, comfortable in no apparent distress. HEAD: Normocephalic. EYES: Normal reaction of pupils, equal size. NOSE: Clear with pink turbinates. THROAT: No erythema or exudates. NECK: No masses, no JVD. CHEST: No chest wall deformity. LUNGS: Equal air entry with forced end expiratory wheeze on exhalation. CVS: S1 and S2 normal with no audible murmur, regular rhythm. ABDOMEN: No hepatosplenomegaly, normal bowel sounds, no guarding or rigidity. SPINE: No scoliosis or deformity SKIN: No rashes CENTRAL NERVOUS SYSTEM: No focal deficits, tone is normal in all 4 extremities. EXTREMITIES: There is no peripheral edema. No clubbing, no cyanosis. Peripheral pulses are intact. - Labs CBC & Chem 7: 01/20/23 05:53 01/20/23 05:53 Labs: Abnormal Lab Results - Last 24 Hours (Table) 01/19/23 01/19/23 01/19/23 Range/Units 11:55 17:01 20:53 RBC (4.10-5.20) X 10*6/uL Hgb (12.0-15.0) g/dL Hct (37.2-46.3) % MCV (80.0-97.0) fL MCHC (32.0-37.0) g/dL Immature Gran # (0.00-0.04) X 10*3/uL Monocytes # (0.20-1.00) X 10*3/uL Est GFR (CKD-EPI)AfAm (60.0-200.0) Est GFR (CKD-EPI)NonAf (60.0-200.0) Glucose (70-110) mg/dL POC Glucose (mg/dL) 134 H 141 H (70-110) mg/dL AST (13-35) U/L Total Protein (6.2-8.2) g/dL Albumin (3.8-4.9) g/dL Procalcitonin 0.10 H (0.02-0.09) ng/mL 01/20/23 01/20/23 01/20/23 Range/Units 05:53 05:53 07:08 RBC 2.78 L (4.10-5.20) X 10*6/uL Hgb 8.4 L (12.0-15.0) g/dL Hct 28.0 L (37.2-46.3) % MCV 100.7 H (80.0-97.0) fL MCHC 30.0 L (32.0-37.0) g/dL Immature Gran # 0.09 H (0.00-0.04) X 10*3/uL Monocytes # 1.10 H (0.20-1.00) X 10*3/uL Est GFR (CKD-EPI)AfAm 50.8 L (60.0-200.0) Est GFR (CKD-EPI)NonAf 43.9 L (60.0-200.0) Glucose 129 H (70-110) mg/dL POC Glucose (mg/dL) 140 H (70-110) mg/dL AST 12 L (13-35) U/L Total Protein 5.9 L (6.2-8.2) g/dL Albumin 3.7 L (3.8-4.9) g/dL Procalcitonin (0.02-0.09) ng/mL 01/20/23 Range/Units 11:56 RBC (4.10-5.20) X 10*6/uL Hgb (12.0-15.0) g/dL Hct (37.2-46.3) % MCV (80.0-97.0) fL MCHC (32.0-37.0) g/dL Immature Gran # (0.00-0.04) X 10*3/uL Monocytes # (0.20-1.00) X 10*3/uL Est GFR (CKD-EPI)AfAm (60.0-200.0) Est GFR (CKD-EPI)NonAf (60.0-200.0) Glucose (70-110) mg/dL POC Glucose (mg/dL) 112 H (70-110) mg/dL AST (13-35) U/L Total Protein (6.2-8.2) g/dL Albumin (3.8-4.9) g/dL Procalcitonin (0.02-0.09) ng/mL Assessment and Plan Plan: COPD exacerbation with secondary shortness of breath Acute on chronic hypoxic respiratory failure and oxygen requirements are ranging between 2 and 3 L/m nasal cannula. I had to bring the patient's oxygen flow up to 3 L to maintain a saturation above 90% Generalized weakness suspect secondary to diarrhea and dehydration Acute kidney injury secondary to above, improving and the creatinine is down to 1.2 Dysphagia of unclear etiology Anemia of unclear etiology, current hemoglobin 8.4 Hypothyroidism with current TSH less than 0.015, dose adjusted Chronic obstructive pulmonary disease, currently inactive in stable Former smoker Coronary disease with previous stent placement and previous bypass grafting Hypertension Hyperlipidemia Diabetes mellitus Obstructive sleep apnea, intolerant to CPAP therapy Plan: Ideally, would like to add systemic steroids. The patient declined. We'll continue same management for now. Add steroids if the patient's condition decompensated. Oxygen is being titrated between 2 and 3 L nasal cannula. Creatinine stabilized. Patient is back on diuretics and she is taken Bumex 2 mg twice a day.
[2023-01-20] MEDS: BUMETANIDE 1 MG TAB PO SCH ×2 (15:40→21:10)
[2023-01-20 17:23] LABS: Glucose,Whole Blood 178 mg/dL (70-110)
--- NOTE | 2023-01-20 18:41 | P.PN ---
Subjective Progress Note Date: 01/20/23 Hodan Jacobs, is a 77 -year-old female who presented to [facility] emergency room with a chief complaint of generalized weakness She was evaluated in the emergency room vital examination on presentation revealed a temperature of 98.1 pulse 82 respiration 24 blood pressure 147/70 pulse ox 96% on room air Laboratory data revealed a white blood count of 7.8 hemoglobin 9.7 platelet count 342 sodium 136 potassium 4.6 chloride 100 CO2 26 BUN 36 creatinine 1.51 creatinine was 1.3 on 01/02/2023 lactic acid was elevated at 2.6 troponin normal at 0.012 TSH was low at 0.015 urine analysis was positive for leukocyte esterase Testing in the emergency room revealed chest x-ray done in the emergency room revealed mild atelectasis in the left lung and chronic elevation in the right diaphragm, EKG revealed sinus rhythm with 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 Patient was admitted to medical floor for further evaluation and treatment Past medical history is significant for history of hypertension, history of hypothyroidism, history of hyperlipidemia, history of coronary artery disease, history of [id number] diabetes mellitus, history of obstructive sleep apnea. On review of systems patient is alert and oriented 3 in no apparent distress there is no fever or chills no headache or dizziness no chest pain , she is complaining of shortness of breath no cough no nausea or vomiting no abdominal pain no diarrhea and no urinary symptoms. 01/18/2023 patient was seen and examined on the medical she is alert and oriented 3 in no apparent distress she is still complaining of severe generalized weakness and complaining of shortness of breath with activity, patient has evidence of urinary tract infection, evidence of iron deficiency anemia, acute on chronic renal failure, and known history of coronary artery disease, echocardiogram is still pending, physical therapy occupational therapy consult, IV iron, labs today are still pending, will follow closely. on 01/19/2023 patient is alert and oriented 3. Patient complaining of incre ased shortness of breath and wheezing. Discussed case with nephrology services will order 1 time dose of IV Bumex and DC IV fluids. Chest x-ray also ordered. Patient denies chest pain. Patient denies nausea vomiting or diarrhea. Patient denies any urinary burning or frequency On 01/20/2023 patient was seen and examined on the medical floor she is alert and oriented 3 in no apparent distress she is still complaining of shortness of breath and wheezing patient also has mild lower extremity edema at this time patient has evidence of fluid overload Bumex 2 mg by mouth twice a day was resumed. Nephrology and pulmonary are following we will continue to follow closely Objective - Vital Signs Vital signs: Vital Signs Temp 98.2 F 01/20/23 00:51 Pulse 79 01/20/23 00:51 Resp 18 01/20/23 00:51 BP 151/60 01/20/23 00:51 Pulse Ox 95 01/20/23 00:51 FiO2 Intake & Output 01/19/23 01/20/23 01/20/23 18:59 06:59 18:59 Intake Total 600 Balance 600 Intake: Oral 600 Other: Voiding Method Toilet # Voids 6 3 # Bowel Movements 1 - Exam In general patient is alert and oriented x 3 in no distress HEENT head normocephalic and atraumatic Neck is supple no JVD no goiter no lymphadenopathy no carotid bruit Chest examination is clear to auscultation no crackles no wheezing Cardiac exam reveals regular heart sounds S1 and S2 no gallops no murmurs Abdomen is soft nontender no organomegaly with normal bowel sounds Extremity exam reveals no edema no cyanosis or clubbing Neurological examination reveals no gross focal deficits - Labs CBC & Chem 7: 01/20/23 05:53 01/20/23 05:53 Labs: Abnormal Lab Results - Last 24 Hours (Table) 01/19/23 01/19/23 01/19/23 Range/Units 07:55 07:55 11:10 RBC 2.76 L (4.10-5.20) X 10*6/uL Hgb 8.3 L (12.0-15.0) g/dL Hct 27.5 L (37.2-46.3) % MCV 99.6 H (80.0-97.0) fL MCHC 30.2 L (32.0-37.0) g/dL Absolute Nucleated RBC 0.02 H (0.00-0.00) X 10*3/uL Immature Gran # 0.10 H (0.00-0.04) X 10*3/uL Eosinophils # 0.38 H (0.04-0.35) X 10*3/uL NRBC/100 WBC Diff 0.3 H (0.0-0.0) /100 WBCS Chloride 111 H (96-109) mmol/L Anion Gap 8.50 L (10.00-18.00) mmol/L Est GFR (CKD-EPI)AfAm 56.5 L (60.0-200.0) Est GFR (CKD-EPI)NonAf 48.7 L (60.0-200.0) Glucose 126 H (70-110) mg/dL POC Glucose (mg/dL) 115 H (70-110) mg/dL Total Bilirubin <0.15 L (0.30-1.20) mg/dL Total Protein 5.6 L (6.2-8.2) g/dL Albumin 3.7 L (3.8-4.9) g/dL Procalcitonin (0.02-0.09) ng/mL 01/19/23 01/19/23 01/19/23 Range/Units 11:55 17:01 20:53 RBC (4.10-5.20) X 10*6/uL Hgb (12.0-15.0) g/dL Hct (37.2-46.3) % MCV (80.0-97.0) fL MCHC (32.0-37.0) g/dL Absolute Nucleated RBC (0.00-0.00) X 10*3/uL Immature Gran # (0.00-0.04) X 10*3/uL Eosinophils # (0.04-0.35) X 10*3/uL NRBC/100 WBC Diff (0.0-0.0) /100 WBCS Chloride (96-109) mmol/L Anion Gap (10.00-18.00) mmol/L Est GFR (CKD-EPI)AfAm (60.0-200.0) Est GFR (CKD-EPI)NonAf (60.0-200.0) Glucose (70-110) mg/dL POC Glucose (mg/dL) 134 H 141 H (70-110) mg/dL Total Bilirubin (0.30-1.20) mg/dL Total Protein (6.2-8.2) g/dL Albumin (3.8-4.9) g/dL Procalcitonin 0.10 H (0.02-0.09) ng/mL 01/20/23 Range/Units 07:08 RBC (4.10-5.20) X 10*6/uL Hgb (12.0-15.0) g/dL Hct (37.2-46.3) % MCV (80.0-97.0) fL MCHC (32.0-37.0) g/dL Absolute Nucleated RBC (0.00-0.00) X 10*3/uL Immature Gran # (0.00-0.04) X 10*3/uL Eosinophils # (0.04-0.35) X 10*3/uL NRBC/100 WBC Diff (0.0-0.0) /100 WBCS Chloride (96-109) mmol/L Anion Gap (10.00-18.00) mmol/L Est GFR (CKD-EPI)AfAm (60.0-200.0) Est GFR (CKD-EPI)NonAf (60.0-200.0) Glucose (70-110) mg/dL POC Glucose (mg/dL) 140 H (70-110) mg/dL Total Bilirubin (0.30-1.20) mg/dL Total Protein (6.2-8.2) g/dL Albumin (3.8-4.9) g/dL Procalcitonin (0.02-0.09) ng/mL Assessment and Plan Plan: Generalized weakness Evidence of urinary tract infection, started on oral doxycycline Acute kidney injury with elevated BUN and creatinine, blood pressure medications are being adjusted by nephrology, patient is maintained on IV fluid Shortness of breath with any activity Difficulty swallowing with feeling food stuck in her throat, gastroenterology consultation requested, if not available patient will follow with gastroenterology as outpatient Elevated lactic acid Anemia on presentation, with evidence of iron deficiency, patient unable to tolerate oral iron, IV Venofer was ordered Known history of hypothyroidism maintained on Synthroid was decreased TSH at this time Underlying history of hypertension Underlying history of hyperlipidemia Underlying history of luh-ncthabl-evolujhfj diabetes mellitus Underlying history of COPD, stable patient was evaluated and cleared by pulmonary Underlying history of obstructive sleep apnea Underlying history of coronary artery disease increased shortness of breath 1 dose of IV Bumex ordered chest x-ray ordered At this time patient is admitted to medical floor She was started on IV fluid and on oral antibiotic in the emergency room Home medications reviewed and reordered, at this time I will hold metformin, and decreased dose of Synthroid to 50 g daily Will monitor closely
[2023-01-20] MEDS: ATORVASTATIN 80 MG TAB PO SCH (21:10)
[2023-01-20] MEDS: LORazepam 1 MG TAB PO SCH (21:12)
[2023-01-20] MEDS: ACETAMINOPHEN TAB 325 MG TAB PO PRN (21:12)
[2023-01-20 21:20] LABS: Glucose,Whole Blood 206 mg/dL (70-110)
[2023-01-21] MEDS: LEVOTHYROXINE 50 MCG TAB PO SCH (05:50)
[2023-01-21 06:58] LABS: Glucose,Whole Blood 133 mg/dL (70-110)
[2023-01-21] MEDS: SYMBICORT 160-4.5 MCG INHALER INHALATION SCH (07:22)
[2023-01-21] MEDS: INSULIN ASPART (NovoLOG) 100 UNIT/ML VIAL SQ SCH ×4 (07:47→21:34)
[2023-01-21] MEDS: CLOPIDOGREL 75 MG TAB PO SCH (08:24)
[2023-01-21] MEDS: DOXYCYCLINE 50 MG CAP PO SCH (08:24)
[2023-01-21] MEDS: DULoxetine HCL 60 MG CAPSULE.DR PO SCH (08:24)
[2023-01-21] MEDS: ASCORBIC ACID 500 MG TAB PO SCH (08:25)
[2023-01-21] MEDS: NITROGLYCERIN 0.4MG/HR PATCH TRANSDERM SCH (08:25)
[2023-01-21] MEDS: BUMETANIDE 1 MG TAB PO SCH (08:25)
[2023-01-21] MEDS: RANOLAZINE 500 MG TAB.ER.12H PO SCH ×2 (08:25→21:34)
[2023-01-21] MEDS: METOPROLOL TARTRATE 50 MG TAB PO SCH ×2 (08:25→21:34)
[2023-01-21] MEDS: LORazepam 0.5 MG TAB PO SCH (08:25)
[2023-01-21] MEDS: LORATADINE 10 MG TAB PO SCH (08:25)
[2023-01-21] MEDS: DICYCLOMINE 20 MG TAB PO SCH ×4 (08:25→21:34)
[2023-01-21] MEDS: PANTOPRAZOLE 40 MG TABLET PO SCH (08:25)
[2023-01-21] MEDS: MULTIVITAMINS, THERA 1 EACH TAB PO SCH (08:25)
[2023-01-21] MEDS ORDERED: LORazepam 2 MG/ML INJ IV STA (09:14)
[2023-01-21 09:41] LABS: Basophils # (A) 0.04 X 10*3/uL (0.00-0.10); Basophils % (A) 0.5 %; Eosinophils # (A) 0.33 X 10*3/uL (0.04-0.35); Eosinophils % (A) 4.4 %; HCT 26.6 % (37.2-46.3); HGB 8.2 g/dL (12.0-15.0); Immature Grans, Automated 1.2 %; Lymphocytes # (A) 1.18 X 10*3/uL (0.90-5.00); Lymphocytes % (A) 15.9 %; MCH 30.9 pg (27.0-32.0); MCHC 30.8 g/dL (32.0-37.0); MCV 100.4 fL (80.0-97.0); Mean Platelet Volume 9.5 fL (9.5-12.2); Monocytes # (A) 0.94 X 10*3/uL (0.20-1.00); Monocytes % (A) 12.7 %; NRBC Per 100 WBC 0 /100 WBCS (0.0-0.0); Neutrophils # (A) 4.85 X 10*3/uL (1.80-7.70); Neutrophils % (A) 65.3 %; Platelet Count 302 X 10*3/uL (140-440); RBC 2.65 X 10*6/uL (4.10-5.20); RDW 13.2 % (11.5-14.5); WBC 7.43 X 10*3/uL (4.50-10.00)
[2023-01-21 09:44] LABS: African American GFR (CKD) 56.5 (60.0-200.0); Albumin 3.5 g/dL (3.8-4.9); Albumin/Globulin Ratio 1.67 (1.60-3.17); Anion Gap 10.3 mmol/L (10.00-18.00); BUN/Creat Ratio 13.91 Ratio (12.00-20.00); Blood Urea Nitrogen 15.3 mg/dL (9.0-27.0); Calcium 9.2 mg/dL (8.7-10.3); Carbon Dioxide 24.7 mmol/L (20.0-27.5); Globulin 2.1 g/dL (1.6-3.3); Non-African American GFR(CKD) 48.7 (60.0-200.0); Potassium 4.1 mmol/L (3.5-5.5); Total Bilirubin 0.3 mg/dL (0.30-1.20); Total Protein 5.6 g/dL (6.2-8.2)
--- NOTE | 2023-01-21 10:38 | CT ---
EXAMINATION TYPE: CT brain wo con DATE OF EXAM: 01/21/2023 COMPARISON: HISTORY: Hallucinations CT DLP: [address] of the brain was performed. The ventricles, basal cisterns and sulci overlying the cerebral convexities demonstrate mild enlargem ent. There is no evidence for intracranial hemorrhage or sulcal effacement. There is decreased attenuation about the periventricular white matter and deep white matter of both c erebral hemispheres, compatible with chronic small vessel ischemia. Differential diagnosis does inclu de demyelination. No mass effects are seen.No midline shift. There are several approximately 4 hypodense lesions with H ounsfield unit value of up to -80 compatible with fat. These lesions measure up to 6 mm and are locat ed within the interhemispheric region and are felt to reflect small lipomas. Osseous calvarium is intact. If symptoms persist consider MRI. IMPRESSION: 1. Age related atrophic and chronic small vessel ischemic change without acute intracranial process s een at this time. 2.There are several approximately 4 hypodense lesions with Hounsfield unit value of up to -80 compati ble with fat. These lesions measure up to 6 mm and are located within the interhemispheric region and are felt to reflect small lipomas.
--- NOTE | 2023-01-21 11:39 | P.PN ---
Subjective Progress Note Date: 01/21/23 This is a pleasant 77 showed female patient who follows with Dr. van as her primary care provider. She has a history of coronary artery disease with previous coronary artery bypass grafting, previous stent placement, diabetes mellitus, hypothyroidism, hypertension, hyperlipidemia, chronic obstructive pulmonary disease from 30 years of smoking. She is maintained on Symbicort and albuterol along with oxygen at nighttime. She follows with a convention services director out of the [facility] system. She presented here to the emergency room last evening with the complaint of generalized weakness and fatigue that have been progressing over the past week. She feels exhausted. She is dyspneic on exertion. Some abdominal pain and cramping with intermittent diarrhea. Chest x- ray revealed some mild atelectasis of the left base. No overt heart failure. Mild chronic elevation of the right hemidiaphragm. White count 7.8. Hemoglobin 9.7. Platelets 342. D-dimer 0.39. Sodium 136. Potassium 4.6. Bicarb 26. BUN 36. Creatinine 1.51. Glucose 142. TSH less than 0.015. Free T4 1 0.14. Urinalysis clean. Ultrasound of the kidneys/renal and bladder revealed no evidence of hydronephrosis. No nephrolithiasis. No solid masses identified. The urinary bladder is anechoic. She is seen today in consultation on the regular medical floor. Currently laying comfortable in bed. Awake and alert in no acute distress. Maintaining good O2 saturations in the 90s on 2 L/m per nasal cannula. Normal saline at 75 mls per hour. She is on Symbicort and albuterol. Empiric antibiotics in the form of doxycycline. The patient is seen today 01/18/2023 in follow-up on the regular medical floor. She is currently resting comfortably in bed. Awake and alert in no acute distress. Less weak today compared to yesterday. Still some fatigue on minimal exertion. Maintaining O2 saturations in the 90s on 2 L/m per nasal cannula. She says some mild wheezing. Normal saline at 75 ML's per hour. Sodium 143. Potassium 4.4. Bicarb 26. BUN 25. Creatinine 1.1. Glucose 109. She is continued on Symbicort, albuterol, empiric antibiotics in the form of doxycycline. The patient is seen today 01/19/2023 in follow-up on the regular medical floor. She is currently resting comfortably in bed. Still with some complaints of shortness of breath and wheezing. Maintaining good O2 saturations in the high 90s on 2 L/m per nasal cannula. She is continued on Symbicort and albuterol. Antibiotics in the form of doxycycline. Chest x-ray reveals evidence of atelectasis of the lung bases. Blood sugar 115. On today's evaluation of the 2022, the patient still having difficulties with shortness of breath, bronchospasm and the patient is also on oxygen between 2 and 3 L/m nasal cannula. While on 2 L, pulse ox dropped down to 86% and had to bring it up to 3 L. The patient is otherwise doing well. No specific complaints for now. I wanted to put her on IV Solu-Medrol. Nevertheless, the patient is diabetic and she declined as she is aware that steroids will make her sugars elevated and she will not tolerate steroids because of other side effects including increased agitation or restlessness. Based on that, no systemic steroids and the provided. She is on Symbicort as maintenance 2 puffs twice a day, and return about treatments [id number] and the rest of the home medications and resume. She is receiving empiric antibiotic coverage with doxycycline. She is known to have CAD, previous bypass surgery, previous stenting, and as mentioned she is diabetic and she has hypertension and h yperlipidemia and hypothyroidism. Her convention services director is Dr. Scott out of [facility]. 01/21/2023, the patient states that she is essentially unchanged. Her respiratory status is looking the same as yesterday. She remains on Symbicort. She is on nebulized treatments [id number]. She is on no steroids for now. She did have a bout of confusion according to the nursing staff and that she was given a CAT scan of the brain that turned out to be negative. I see the patient to be very appropriate at this point in time. No other new complaints otherwise. Her cough is dry. She still bronchospastic. Objective - Vital Signs Vital signs: Vital Signs Temp 97.8 F 01/21/23 07:49 Pulse 83 01/21/23 07:49 Resp 19 01/21/23 07:49 BP 139/60 01/21/23 07:49 Pulse Ox 94 L 01/21/23 07:49 FiO2 2 01/20/23 08:44 Intake & Output 01/20/23 01/21/23 01/21/23 18:59 06:59 18:59 Intake Total 600 Balance 600 Intake: Oral 600 Other: Voiding Method Toilet Toilet # Voids 2 2 - Exam GENERAL EXAM: Alert, 77-year-old female, on 2-3 L nasal cannula, comfortable in no apparent distress. HEAD: Normocephalic. EYES: Normal reaction of pupils, equal size. NOSE: Clear with pink turbinates. THROAT: No erythema or exudates. NECK: No masses, no JVD. CHEST: No chest wall deformity. LUNGS: Equal air entry with forced end expiratory wheeze on exhalation. CVS: S1 and S2 normal with no audible murmur, regular rhythm. ABDOMEN: No hepatosplenomegaly, normal bowel sounds, no guarding or rigidity. SPINE: No scoliosis or deformity SKIN: No rashes CENTRAL NERVOUS SYSTEM: No focal deficits, tone is normal in all 4 extremities. EXTREMITIES: There is no peripheral edema. No clubbing, no cyanosis. Peripheral pulses are intact. - Labs CBC & Chem 7: 01/21/23 05:44 01/21/23 05:44 Labs: Abnormal Lab Results - Last 24 Hours (Table) 01/20/23 01/20/23 01/20/23 Range/Units 11:56 17:22 21:15 RBC (4.10-5.20) X 10*6/uL Hgb (12.0-15.0) g/dL Hct (37.2-46.3) % MCV (80.0-97.0) fL MCHC (32.0-37.0) g/dL Immature Gran # (0.00-0.04) X 10*3/uL Est GFR (CKD-EPI)AfAm (60.0-200.0) Est GFR (CKD-EPI)NonAf (60.0-200.0) Glucose (70-110) mg/dL POC Glucose (mg/dL) 112 H 178 H 206 H (70-110) mg/dL AST (13-35) U/L Total Protein (6.2-8.2) g/dL Albumin (3.8-4.9) g/dL 01/21/23 01/21/23 01/21/23 Range/Units 05:44 05:44 06:56 RBC 2.65 L (4.10-5.20) X 10*6/uL Hgb 8.2 L (12.0-15.0) g/dL Hct 26.6 L (37.2-46.3) % MCV 100.4 H (80.0-97.0) fL MCHC 30.8 L (32.0-37.0) g/dL Immature Gran # 0.09 H (0.00-0.04) X 10*3/uL Est GFR (CKD-EPI)AfAm 56.5 L (60.0-200.0) Est GFR (CKD-EPI)NonAf 48.7 L (60.0-200.0) Glucose 126 H (70-110) mg/dL POC Glucose (mg/dL) 133 H (70-110) mg/dL AST 12 L (13-35) U/L Total Protein 5.6 L (6.2-8.2) g/dL Albumin 3.5 L (3.8-4.9) g/dL Assessment and Plan Plan: COPD exacerbation with secondary shortness of breath, still unchanged Acute on chronic hypoxic respiratory failure and oxygen requirements are ranging between 2 and 3 L/m nasal cannula. Generalized weakness suspect secondary to diarrhea and dehydration Acute kidney injury secondary to above, improving and the creatinine is down to 1.1 Dysphagia of unclear etiology Anemia of unclear etiology, current hemoglobin 8.2 Hypothyroidism with current TSH less than 0.015, dose adjusted Chronic obstructive pulmonary disease, currently inactive in stable Former smoker Coronary disease with previous stent placement and previous bypass grafting Hypertension Hyperlipidemia Diabetes mellitus Obstructive sleep apnea, intolerant to CPAP therapy Plan: Ideally, would like to add systemic steroids. The patient declined. We'll continue same management for now. We'll continue same management. I may switch her from Symbicort to a combination of Perforomist and Pulmicort nebs twice a day.
[2023-01-21] MEDS: ALBUTEROL NEBULIZED 2.5 MG/3 ML INHALATION PRN ×2 (11:44→18:12)
[2023-01-21 11:58] LABS: Glucose,Whole Blood 218 mg/dL (70-110)
--- NOTE | 2023-01-21 12:14 | P.CNNES ---
History of Present Illness Consult date: 01/21/23 Requesting physician: Marc Quintanilla Reason for Consult: hallucination History of Present Illness: This is a 77-year-old woman with history of diabetes, dysphagia for 2-3 years, hypothyroidism, obstructive sleep apnea who presented emergency department because of generalized weakness. Neurology is consulted for hallucination. According to the patient she's been having generalized weakness for the past couple months but worsening in the last 2 weeks. She also has dysphagia for the last 2-3 years and she stated it started with the solids and liquids. She stated that she is getting a scope of her upper esophagus and he has been followed up with GI as an outpatient. It seems that during his hospital visit the patient has a acute COPD exacerbation and she's wheezing and short of breath. This hospital visit she stated that she had 2 episodes of confusion in which she she would be confused at nighttime and wakeup and an incident in which she woke up and that she was looking for her even though her left for the day. Another incidence she woke up and the asking where she was. Some of the workup during his hospital visit consisted of: Seems the patient has acute kidney insufficiency that has resolved. Vitamin B12 is 469 Folate is 17 TSH is less than 0.015 free T4 is 1.14. CT of the head is reported as age-related atrophy and chronic small vessel ischemic changes without acute intracranial process seen at this time. There are several approximate 4 hypodense lesion with house field unit value of up to -80 compatible with fact. These lesions measure up to 6 mm and I'll located within interhemispheric region and are felt to reflect small lipoma. I personally reviewed the CAT scan and I agree with the findings Review of Systems Review of system: The 12 point system was reviewed and apparent positive and negative per HPI. Past Medical History Past Medical History: Cancer, Diabetes Mellitus, GERD/Reflux, Myocardial Infarction ([place]), Osteoarthritis (OA), Thyroid Disorder Last Myocardial Infarction Date:: 2010 History of Any Multi-Drug Resistant Organisms: None Reported Past Surgical History: Breast Surgery, Cholecystectomy, Coronary Bypass/CABG, Heart Catheterization With Stent, Joint Replacement Additional Past Surgical History / Comment(s): Tripple Bypass Past Anesthesia/Blood Transfusion Reactions: No Reported Reaction Date of Last Stent Placement:: Unknown Past Psychological History: Anxiety, Depression Smoking Status: Former smoker Past Alcohol Use History: None Reported Past Drug Use History: None Reported Medications and Allergies Home Medications Medication Instructions Recorded Confirmed Type Albuterol Sulfate [Albuterol 2 puff PO RT-Q6H PRN 01/16/23 01/16/23 History Sulfate Hfa] Ascorbic Acid [Vitamin C] 1,000 mg PO DAILY 01/16/23 01/16/23 History Biotin 5 mg PO DAILY 01/16/23 01/16/23 History Budesonide/Formoterol Fumarate 2 puff INHALATION RT-BID 01/16/23 01/16/23 History [Symbicort 160-4.5 Mcg Inhaler] Bumetanide [BUMEX] 2 mg PO BID@0900,1700 01/16/23 01/16/23 History Clopidogrel [Plavix] 75 mg PO DAILY 01/16/23 01/16/23 History DULoxetine HCL [Cymbalta] 120 mg PO DAILY 01/16/23 01/16/23 History Dicyclomine HCl 20 mg PO QID 01/16/23 01/16/23 History Doxycycline Hyclate [Doryx] 50 mg PO DAILY 01/16/23 01/16/23 History Fexofenadine HCl [Kathy Allergy] 180 mg PO DAILY 01/16/23 01/16/23 History Glucosam/Charlie-Msm1/C/Odilon/Bosw 1 tab PO DAILY 01/16/23 01/16/23 History [Glucosamine-Chondroitin Tablet] LORazepam [Ativan] 0.5 mg PO DAILY 01/16/23 01/16/23 History LORazepam [Ativan] 1 mg PO HS 01/16/23 01/16/23 History Levothyroxine Sodium [Synthroid] 75 mcg PO DAILY 01/16/23 01/16/23 History Metoprolol Tartrate [Lopressor] 50 mg PO BID 01/16/23 01/16/23 History Multivitamins, Thera [Multivitamin 1 tab PO DAILY 01/16/23 01/16/23 History (formulary)] Nitroglycerin 0.4MG/Hr Patch 1 patch TRANSDERM DAILY 01/16/23 01/16/23 History [Nitro-Dur 0.4MG/Hr Patch] Omeprazole [PriLOSEC] 20 mg PO BID 01/16/23 01/16/23 History Potassium Chloride ER [K-Dur 20] 20 meq PO BID 01/16/23 01/16/23 History Ranolazine [Ranexa] 500 mg PO BID 01/16/23 01/16/23 History Rosuvastatin Calcium [Crestor] 40 mg PO HS 01/16/23 01/16/23 History lisinopriL [Zestril] 2.5 mg PO DAILY 01/16/23 01/16/23 History metFORMIN HCL [Glucophage] 1,000 mg PO BID 01/16/23 01/16/23 History Allergies Allergy/AdvReac Type Severity Reaction Status Date / Time No Known Allergies Allergy Verified 01/16/23 21:04 Physical Examination - Vital Signs Vital Signs: Vital Signs Temp Pulse Pulse Resp BP Pulse Ox 01/21/23 11:44 84 01/21/23 07:49 97.8 F 83 19 139/60 94 L 01/21/23 03:13 98.2 F 85 18 149/70 95 01/20/23 20:05 18 01/20/23 20:02 98.9 F 92 18 144/66 95 01/20/23 16:41 84 01/20/23 16:28 88 Intake and Output 01/20/23 01/21/23 01/21/23 22:59 06:59 14:59 Intake Total 600 Balance 600 Intake: Oral 600 Other: Voiding Method Toilet Toilet # Voids 2 2 GENERAL: The patient is lying in bed and is not in acute distress. CHEST: The heart rate is regular rate rhythm. No murmurs to auscultation. LUNG: Is wheezing even without ausculation. Slight tachypneic. Not labored breathing. ABDOMEN/GI: Bowel sounds present in all 4 quadrants. No tenderness to palpation throughout. NEUROLOGICAL: Higher mental function: The patient is awake, alert, oriented to self, place and time. Patient is following commands. No aphasia and no neglect. Cranial nerves: The pupils are round, equal and reactive to light and accommodation. Visual rocha are full to confrontation throughout. Extraocular movement is intact no nystagmus is noted. Facial sensation is normal to touch throughout. The facial strength is normal throughout. Hearing is mildly decreased bilaterally to hand rub. Tongue is midline and moved [id number] without any difficulty. No dysarthria is noted. Shoulder shrug is normal bilaterally. Motor: The strength is 5 over 5 throughout. Normal tone and bulk. Cerebellum: Normal finger to nose bilaterally. Sensation: Sensation is normal to touch throughout. Reflexes (right/left): 2+ throughout. Plantars are mute bilaterally. Results - Laboratory Findings CBC and BMP: 01/21/23 05:44 01/21/23 05:44 Abnormal Lab Findings: Abnormal Labs 01/16/23 01/16/23 01/16/23 20:18 20:18 20:18 RBC 3.06 L Hgb 9.7 L Hct 29.0 L MCV MCHC Absolute Nucleated RBC Immature Gran # Monocytes # Eosinophils # NRBC/100 WBC Diff Sodium 136 L Chloride Anion Gap BUN 36 H Creatinine 1.51 H Est GFR (CKD-EPI)AfAm Est GFR (CKD-EPI)NonAf BUN/Creatinine Ratio Glucose 142 H POC Glucose (mg/dL) Plasma Lactic Acid Ronald 2.6 H* Magnesium 1.5 L Iron % Saturation Total Bilirubin AST Total Protein 6.2 L Albumin Procalcitonin TSH <0.015 L Ur Leukocyte Esterase Urine Mucus 01/16/23 01/17/23 01/17/23 22:30 10:39 17:16 RBC Hgb Hct MCV MCHC Absolute Nucleated RBC Immature Gran # Monocytes # Eosinophils # NRBC/100 WBC Diff Sodium Chloride Anion Gap BUN Creatinine Est GFR (CKD-EPI)AfAm Est GFR (CKD-EPI)NonAf BUN/Creatinine Ratio Glucose POC Glucose (mg/dL) 138 H Plasma Lactic Acid Ronald Magnesium Iron 41 L % Saturation 10.11 L Total Bilirubin AST Total Protein Albumin Procalcitonin TSH Ur Leukocyte Esterase Small H Urine Mucus Rare H 01/17/23 01/18/23 01/18/23 19:58 07:12 07:47 RBC Hgb Hct MCV MCHC Absolute Nucleated RBC Immature Gran # Monocytes # Eosinophils # NRBC/100 WBC Diff Sodium Chloride Anion Gap 9.10 L BUN Creatinine Est GFR (CKD-EPI)AfAm 56.5 L Est GFR (CKD-EPI)NonAf 48.7 L BUN/Creatinine Ratio 23.18 H Glucose POC Glucose (mg/dL) 155 H 115 H Plasma Lactic Acid Ronald Magnesium Iron % Saturation Total Bilirubin AST Total Protein Albumin Procalcitonin TSH Ur Leukocyte Esterase Urine Mucus 01/18/23 01/18/23 01/19/23 17:16 19:54 07:08 RBC Hgb Hct MCV MCHC Absolute Nucleated RBC Immature Gran # Monocytes # Eosinophils # NRBC/100 WBC Diff Sodium Chloride Anion Gap BUN Creatinine Est GFR (CKD-EPI)AfAm Est GFR (CKD-EPI)NonAf BUN/Creatinine Ratio Glucose POC Glucose (mg/dL) 137 H 207 H 122 H Plasma Lactic Acid Ronald Magnesium Iron % Saturation Total Bilirubin AST Total Protein Albumin Procalcitonin TSH Ur Leukocyte Esterase Urine Mucus 01/19/23 01/19/23 01/19/23 07:55 07:55 11:10 RBC 2.76 L Hgb 8.3 L Hct 27.5 L MCV 99.6 H MCHC 30.2 L Absolute Nucleated RBC 0.02 H Immature Gran # 0.10 H Monocytes # Eosinophils # 0.38 H NRBC/100 WBC Diff 0.3 H Sodium Chloride 111 H Anion Gap 8.50 L BUN Creatinine Est GFR (CKD-EPI)AfAm 56.5 L Est GFR (CKD-EPI)NonAf 48.7 L BUN/Creatinine Ratio Glucose 126 H POC Glucose (mg/dL) 115 H Plasma Lactic Acid Ronald Magnesium Iron % Saturation Total Bilirubin <0.15 L AST Total Protein 5.6 L Albumin 3.7 L Procalcitonin TSH Ur Leukocyte Esterase Urine Mucus 01/19/23 01/19/23 01/19/23 11:55 17:01 20:53 RBC Hgb Hct MCV MCHC Absolute Nucleated RBC Immature Gran # Monocytes # Eosinophils # NRBC/100 WBC Diff Sodium Chloride Anion Gap BUN Creatinine Est GFR (CKD-EPI)AfAm Est GFR (CKD-EPI)NonAf BUN/Creatinine Ratio Glucose POC Glucose (mg/dL) 134 H 141 H Plasma Lactic Acid Ronald Magnesium Iron % Saturation Total Bilirubin AST Total Protein Albumin Procalcitonin 0.10 H TSH Ur Leukocyte Esterase Urine Mucus 01/20/23 01/20/23 01/20/23 05:53 05:53 07:08 RBC 2.78 L Hgb 8.4 L Hct 28.0 L MCV 100.7 H MCHC 30.0 L Absolute Nucleated RBC Immature Gran # 0.09 H Monocytes # 1.10 H Eosinophils # NRBC/100 WBC Diff Sodium Chloride Anion Gap BUN Creatinine Est GFR (CKD-EPI)AfAm 50.8 L Est GFR (CKD-EPI)NonAf 43.9 L BUN/Creatinine Ratio Glucose 129 H POC Glucose (mg/dL) 140 H Plasma Lactic Acid Ronald Magnesium Iron % Saturation Total Bilirubin AST 12 L Total Protein 5.9 L Albumin 3.7 L Procalcitonin TSH Ur Leukocyte Esterase Urine Mucus 01/20/23 01/20/23 01/20/23 11:56 17:22 21:15 RBC Hgb Hct MCV MCHC Absolute Nucleated RBC Immature Gran # Monocytes # Eosinophils # NRBC/100 WBC Diff Sodium Chloride Anion Gap BUN Creatinine Est GFR (CKD-EPI)AfAm Est GFR (CKD-EPI)NonAf BUN/Creatinine Ratio Glucose POC Glucose (mg/dL) 112 H 178 H 206 H Plasma Lactic Acid Ronald Magnesium Iron % Saturation Total Bilirubin AST Total Protein Albumin Procalcitonin TSH Ur Leukocyte Esterase Urine Mucus 01/21/23 01/21/23 01/21/23 05:44 05:44 06:56 RBC 2.65 L Hgb 8.2 L Hct 26.6 L MCV 100.4 H MCHC 30.8 L Absolute Nucleated RBC Immature Gran # 0.09 H Monocytes # Eosinophils # NRBC/100 WBC Diff Sodium Chloride Anion Gap BUN Creatinine Est GFR (CKD-EPI)AfAm 56.5 L Est GFR (CKD-EPI)NonAf 48.7 L BUN/Creatinine Ratio Glucose 126 H POC Glucose (mg/dL) 133 H Plasma Lactic Acid Ronald Magnesium Iron % Saturation Total Bilirubin AST 12 L Total Protein 5.6 L Albumin 3.5 L Procalcitonin TSH Ur Leukocyte Esterase Urine Mucus Assessment and Plan Assessment: Patient had the episodes of confusion mostly upon waking up or at nighttime likely delirium (could be medication vs hospital induced) 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 Patient has delirium and currently she is back and oriented 3 following commands. Recommended MRI of the brain with and without as an outpatient for further evaluation of her lipoma. GI is on board Pulmonary is on board We'll defer the rest of medical management to primary team The plan was discussed with the patient Thank you for the consultation Time with Patient: Greater than 30
--- NOTE | 2023-01-21 12:45 | P.PN ---
Subjective Patient is seen for follow-up for acute kidney injury. Renal function has improved with IV hydration and creatinine is down to 1.1 from 1.5 on 01/16/2023 Patient is complaining of increased shortness of breath today. She states that she feels swollen. Status post IV Lasix yesterday. Will repeat another dose today. Objective - Vital Signs Vital signs: Vital Signs Temp 97.8 F 01/21/23 07:49 Pulse 84 01/21/23 11:58 Resp 19 01/21/23 07:49 BP 139/60 01/21/23 07:49 Pulse Ox 94 L 01/21/23 07:49 FiO2 2 01/20/23 08:44 Intake & Output 01/20/23 01/21/23 01/21/23 18:59 06:59 18:59 Intake Total 600 Balance 600 Intake: Oral 600 Other: Voiding Method Toilet Bedside Commode # Voids 2 2 - Exam Patient is awake, comfortable, no acute distress Examination of the heart S1 and S2 Examination of the lungs bilateral breath sounds are heard, bilateral wheezing Abdomen is soft nontender Examination of the lower extremities shows no significant edema [employer] SPECIALIST exam grossly intact - Labs CBC & Chem 7: 01/21/23 05:44 01/21/23 05:44 Labs: Abnormal Lab Results - Last 24 Hours (Table) 01/20/23 01/20/23 01/21/23 Range/Units 17:22 21:15 05:44 RBC 2.65 L (4.10-5.20) X 10*6/uL Hgb 8.2 L (12.0-15.0) g/dL Hct 26.6 L (37.2-46.3) % MCV 100.4 H (80.0-97.0) fL MCHC 30.8 L (32.0-37.0) g/dL Immature Gran # 0.09 H (0.00-0.04) X 10*3/uL Est GFR (CKD-EPI)AfAm (60.0-200.0) Est GFR (CKD-EPI)NonAf (60.0-200.0) Glucose (70-110) mg/dL POC Glucose (mg/dL) 178 H 206 H (70-110) mg/dL AST (13-35) U/L Total Protein (6.2-8.2) g/dL Albumin (3.8-4.9) g/dL 01/21/23 01/21/23 01/21/23 Range/Units 05:44 06:56 11:56 RBC (4.10-5.20) X 10*6/uL Hgb (12.0-15.0) g/dL Hct (37.2-46.3) % MCV (80.0-97.0) fL MCHC (32.0-37.0) g/dL Immature Gran # (0.00-0.04) X 10*3/uL Est GFR (CKD-EPI)AfAm 56.5 L (60.0-200.0) Est GFR (CKD-EPI)NonAf 48.7 L (60.0-200.0) Glucose 126 H (70-110) mg/dL POC Glucose (mg/dL) 133 H 218 H (70-110) mg/dL AST 12 L (13-35) U/L Total Protein 5.6 L (6.2-8.2) g/dL Albumin 3.5 L (3.8-4.9) g/dL Assessment and Plan Assessment: 1. Acute kidney injury mostly prerenal secondary to hypovolemia and diuresis. Creatinine 1.51 on admission, decreased to 1.2 today. UA benign. IV fluids discontinued today secondary to volume overload 2. Chronic kidney disease stage II with baseline creatinine near 1 secondary to nephrosclerosis. 3. Lactic acidosis secondary to hypovolemia/hypotension. 4. Diabetes mellitus 5. Volume overload Plan: Continue with oral Bumex Repeat IV Lasix 1 Repeat labs in a.m.
--- NOTE | 2023-01-21 12:47 | P.PN ---
Subjective Patient is seen for follow-up for acute kidney injury. Renal function has improved with IV hydration and creatinine is down to 1.1 from 1.5 on 01/16/2023 Patient is complaining of increased shortness of breath today. She states that she feels swollen. Status post IV Lasix yesterday. Started on oral Bumex Shortness of breath has improved but still persists Objective - Vital Signs Vital signs: Vital Signs Temp 97.8 F 01/21/23 07:49 Pulse 84 01/21/23 11:58 Resp 19 01/21/23 07:49 BP 139/60 01/21/23 07:49 Pulse Ox 94 L 01/21/23 07:49 FiO2 2 01/20/23 08:44 Intake & Output 01/20/23 01/21/23 01/21/23 18:59 06:59 18:59 Intake Total 600 Balance 600 Intake: Oral 600 Other: Voiding Method Toilet Bedside Commode # Voids 2 2 - Exam Patient is awake, comfortable, no acute distress Examination of the heart S1 and S2 Examination of the lungs bilateral breath sounds are heard Abdomen is soft nontender Examination of the lower extremities shows no significant edema [employer]ICE DIRECT[employer] exam grossly intact - Labs CBC & Chem 7: 01/21/23 05:44 01/21/23 05:44 Labs: Abnormal Lab Results - Last 24 Hours (Table) 01/20/23 01/20/23 01/21/23 Range/Units 17:22 21:15 05:44 RBC 2.65 L (4.10-5.20) X 10*6/uL Hgb 8.2 L (12.0-15.0) g/dL Hct 26.6 L (37.2-46.3) % MCV 100.4 H (80.0-97.0) fL MCHC 30.8 L (32.0-37.0) g/dL Immature Gran # 0.09 H (0.00-0.04) X 10*3/uL Est GFR (CKD-EPI)AfAm (60.0-200.0) Est GFR (CKD-EPI)NonAf (60.0-200.0) Glucose (70-110) mg/dL POC Glucose (mg/dL) 178 H 206 H (70-110) mg/dL AST (13-35) U/L Total Protein (6.2-8.2) g/dL Albumin (3.8-4.9) g/dL 01/21/23 01/21/23 01/21/23 Range/Units 05:44 06:56 11:56 RBC (4.10-5.20) X 10*6/uL Hgb (12.0-15.0) g/dL Hct (37.2-46.3) % MCV (80.0-97.0) fL MCHC (32.0-37.0) g/dL Immature Gran # (0.00-0.04) X 10*3/uL Est GFR (CKD-EPI)AfAm 56.5 L (60.0-200.0) Est GFR (CKD-EPI)NonAf 48.7 L (60.0-200.0) Glucose 126 H (70-110) mg/dL POC Glucose (mg/dL) 133 H 218 H (70-110) mg/dL AST 12 L (13-35) U/L Total Protein 5.6 L (6.2-8.2) g/dL Albumin 3.5 L (3.8-4.9) g/dL Assessment and Plan Assessment: 1. Acute kidney injury mostly prerenal secondary to hypovolemia and diuresis. Creatinine 1.51 on admission, decreased to 1.1 today. UA benign. IV fluids discontinued today secondary to volume overload. Maintained on loop diuretics 2. Chronic kidney disease stage II with baseline creatinine near 1 secondary to nephrosclerosis. 3. Lactic acidosis secondary to hypovolemia/hypotension. 4. Diabetes mellitus 5. Volume overload Plan: Switch Bumex to IV Repeat labs in a.m.
--- NOTE | 2023-01-21 16:32 | P.PN ---
Subjective Progress Note Date: 01/21/23 Hodan Jacobs, is a 77 -year-old female who presented to [facility] emergency room with a chief complaint of generalized weakness She was evaluated in the emergency room vital examination on presentation revealed a temperature of 98.1 pulse 82 respiration 24 blood pressure 147/70 pulse ox 96% on room air Laboratory data revealed a white blood count of 7.8 hemoglobin 9.7 platelet count 342 sodium 136 potassium 4.6 chloride 100 CO2 26 BUN 36 creatinine 1.51 creatinine was 1.3 on 01/02/2023 lactic acid was elevated at 2.6 troponin normal at 0.012 TSH was low at 0.015 urine analysis was positive for leukocyte esterase Testing in the emergency room revealed chest x-ray done in the emergency room revealed mild atelectasis in the left lung and chronic elevation in the right diaphragm, EKG revealed sinus rhythm with 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 Patient was admitted to medical floor for further evaluation and treatment Past medical history is significant for history of hypertension, history of hypothyroidism, history of hyperlipidemia, history of coronary artery disease, history of [id number]-[id number] diabetes mellitus, history of obstructive sleep apnea. On review of systems patient is alert and oriented 3 in no apparent distress there is no fever or chills no headache or dizziness no chest pain , she is complaining of shortness of breath no cough no nausea or vomiting no abdominal pain no diarrhea and no urinary symptoms. 01/18/2023 patient was seen and examined on the medical she is alert and oriented 3 in no apparent distress she is still complaining of severe generalized weakness and complaining of shortness of breath with activity, patient has evidence of urinary tract infection, evidence of iron deficiency anemia, acute on chronic renal failure, and known history of coronary artery disease, echocardiogram is still pending, physical therapy occupational therapy consult, IV iron, labs today are still pending, will follow closely. on 01/19/2023 patient is alert and oriented 3. Patient complaining of incre ased shortness of breath and wheezing. Discussed case with nephrology services will order 1 time dose of IV Bumex and DC IV fluids. Chest x-ray also ordered. Patient denies chest pain. Patient denies nausea vomiting or diarrhea. Patient denies any urinary burning or frequency On 01/20/2023 patient was seen and examined on the medical floor she is alert and oriented 3 in no apparent distress she is still complaining of shortness of breath and wheezing patient also has mild lower extremity edema at this time patient has evidence of fluid overload Bumex 2 mg by mouth twice a day was resumed. Nephrology and pulmonary are following we will continue to follow closely. On 01/21/2023 patient was seen and examined on the medical floor she is alert and oriented 3 in no apparent distress she is still complaining of shortness of breath, yesterday patient had episodes of confusion and hallucination, computed tomography scan of the brain was ordered, and neurology consultation was requested, today patient was reevaluated by nephrology, Bumex was switched to IV due to continued evidence of fluid overload, otherwise patient was continued on the same medications, patient seems to be stable at this time will continue to follow closely. Objective - Vital Signs Vital signs: Vital Signs Temp 98.8 F 01/21/23 13:34 Pulse 79 01/21/23 13:34 Resp 17 01/21/23 13:34 BP 133/69 01/21/23 13:34 Pulse Ox 94 L 01/21/23 13:34 FiO2 2 01/20/23 08:44 Intake & Output 01/20/23 01/21/23 01/21/23 18:59 06:59 18:59 Intake Total 600 1000 Balance 600 1000 Intake: Oral 600 1000 Other: Voiding Method Toilet Bedside Commode # Voids 2 2 6 # Bowel Movements 2 - Exam In general patient is alert and oriented x 3 in no distress HEENT head normocephalic and atraumatic Neck is supple no JVD no goiter no lymphadenopathy no carotid bruit Chest examination is clear to auscultation no crackles no wheezing Cardiac exam reveals regular heart sounds S1 and S2 no gallops no murmurs Abdomen is soft nontender no organomegaly with normal bowel sounds Extremity exam reveals no edema no cyanosis or clubbing Neurological examination reveals no gross focal deficits - Labs CBC & Chem 7: 01/21/23 05:44 01/21/23 05:44 Labs: Abnormal Lab Results - Last 24 Hours (Table) 01/20/23 01/20/23 01/21/23 Range/Units 17:22 21:15 05:44 RBC 2.65 L (4.10-5.20) X 10*6/uL Hgb 8.2 L (12.0-15.0) g/dL Hct 26.6 L (37.2-46.3) % MCV 100.4 H (80.0-97.0) fL MCHC 30.8 L (32.0-37.0) g/dL Immature Gran # 0.09 H (0.00-0.04) X 10*3/uL Est GFR (CKD-EPI)AfAm (60.0-200.0) Est GFR (CKD-EPI)NonAf (60.0-200.0) Glucose (70-110) mg/dL POC Glucose (mg/dL) 178 H 206 H (70-110) mg/dL AST (13-35) U/L Total Protein (6.2-8.2) g/dL Albumin (3.8-4.9) g/dL 01/21/23 01/21/23 01/21/23 Range/Units 05:44 06:56 11:56 RBC (4.10-5.20) X 10*6/uL Hgb (12.0-15.0) g/dL Hct (37.2-46.3) % MCV (80.0-97.0) fL MCHC (32.0-37.0) g/dL Immature Gran # (0.00-0.04) X 10*3/uL Est GFR (CKD-EPI)AfAm 56.5 L (60.0-200.0) Est GFR (CKD-EPI)NonAf 48.7 L (60.0-200.0) Glucose 126 H (70-110) mg/dL POC Glucose (mg/dL) 133 H 218 H (70-110) mg/dL AST 12 L (13-35) U/L Total Protein 5.6 L (6.2-8.2) g/dL Albumin 3.5 L (3.8-4.9) g/dL Assessment and Plan Plan: Generalized weakness Evidence of urinary tract infection, started on oral doxycycline Acute kidney injury with elevated BUN and creatinine, blood pressure medications are being adjusted by nephrology, patient is maintained on IV fluid Shortness of breath with any activity Difficulty swallowing with feeling food stuck in her throat, gastroenterology consultation requested, if not available patient will follow with gastroe nterology as outpatient Elevated lactic acid Anemia on presentation, with evidence of iron deficiency, patient unable to tolerate oral iron, IV Venofer was ordered Known history of hypothyroidism maintained on Synthroid was decreased TSH at this time Underlying history of hypertension Underlying history of hyperlipidemia Underlying history of [id number]-efpgsjpew diabetes mellitus Underlying history of COPD, stable patient was evaluated and cleared by pulmonary Underlying history of obstructive sleep apnea Underlying history of coronary artery disease increased shortness of breath 1 dose of IV Bumex ordered chest x-ray ordered At this time patient is admitted to medical floor She was started on IV fluid and on oral antibiotic in the emergency room Home medications reviewed and reordered, at this time I will hold metformin, and decreased dose of Synthroid to 50 g daily Will monitor closely
[2023-01-21] MEDS: ENOXAPARIN 30 MG/0.3 ML SYRINGE SQ SCH (17:47)
[2023-01-21] MEDS: BUMETANIDE 0.25 MG/ML 10 ML VIAL IV SCH ×2 (17:48→21:34)
[2023-01-21] MEDS: BUDESONIDE 0.5 MG/2 ML NEBU INHALATION SCH (18:12)
[2023-01-21] MEDS: FORMOTEROL FUMARATE 20 MCG/2 ML NEBU INHALATION SCH (18:13)
[2023-01-21 18:20] LABS: Glucose,Whole Blood 202 mg/dL (70-110)
[2023-01-21 20:29] LABS: Glucose,Whole Blood 223 mg/dL (70-110)
[2023-01-21] MEDS: ATORVASTATIN 80 MG TAB PO SCH (21:33)
[2023-01-21] MEDS: LORazepam 1 MG TAB PO SCH (21:34)
[2023-01-22] MEDS: LEVOTHYROXINE 50 MCG TAB PO SCH (05:55)
[2023-01-22] MEDS: ACETAMINOPHEN TAB 325 MG TAB PO PRN (05:57)
[2023-01-22 07:17] LABS: Glucose,Whole Blood 139 mg/dL (70-110)
[2023-01-22] MEDS: INSULIN ASPART (NovoLOG) 100 UNIT/ML VIAL SQ SCH ×4 (07:22→20:40)
[2023-01-22] MEDS: FORMOTEROL FUMARATE 20 MCG/2 ML NEBU INHALATION SCH (08:16)
[2023-01-22] MEDS: BUDESONIDE 0.5 MG/2 ML NEBU INHALATION SCH (08:16)
[2023-01-22] MEDS: ALBUTEROL NEBULIZED 2.5 MG/3 ML INHALATION PRN ×2 (08:19→15:43)
[2023-01-22] MEDS: ASCORBIC ACID 500 MG TAB PO SCH (09:41)
[2023-01-22] MEDS: PANTOPRAZOLE 40 MG TABLET PO SCH (09:41)
[2023-01-22] MEDS: CLOPIDOGREL 75 MG TAB PO SCH (09:42)
[2023-01-22] MEDS: ENOXAPARIN 30 MG/0.3 ML SYRINGE SQ SCH (09:42)
[2023-01-22] MEDS: DOXYCYCLINE 50 MG CAP PO SCH (09:42)
[2023-01-22] MEDS: DULoxetine HCL 60 MG CAPSULE.DR PO SCH (09:42)
[2023-01-22] MEDS: DICYCLOMINE 20 MG TAB PO SCH ×4 (09:42→20:39)
[2023-01-22] MEDS: LORazepam 0.5 MG TAB PO SCH (09:43)
[2023-01-22] MEDS: MULTIVITAMINS, THERA 1 EACH TAB PO SCH (09:43)
[2023-01-22] MEDS: METOPROLOL TARTRATE 50 MG TAB PO SCH ×2 (09:43→20:39)
[2023-01-22] MEDS: RANOLAZINE 500 MG TAB.ER.12H PO SCH ×2 (09:43→20:48)
[2023-01-22] MEDS: LORATADINE 10 MG TAB PO SCH (09:43)
[2023-01-22] MEDS: NITROGLYCERIN 0.4MG/HR PATCH TRANSDERM SCH (09:43)
[2023-01-22] MEDS: BUMETANIDE 0.25 MG/ML 10 ML VIAL IV SCH ×2 (09:59→20:37)
--- NOTE | 2023-01-22 10:59 | P.PN ---
Subjective Progress Note Date: 01/22/23 The patient is seen at bedside and denies of any further hallucination. Per the nurse she continue to pull her nasal canuli and her oxygen sat would drop in 80's%. Patient denies any headache currently, focal weakness, difficulty getting her words out. She feels she continues to have breathing issues. Objective - Vital Signs Vital signs: Vital Signs Temp 98.7 F 01/22/23 07:59 Pulse 76 01/22/23 09:31 Resp 18 01/22/23 07:59 BP 136/70 01/22/23 09:31 Pulse Ox 98 01/22/23 08:19 FiO2 2 01/20/23 08:44 Intake & Output 01/21/23 01/22/23 01/22/23 18:59 06:59 18:59 Intake Total 1000 500 Balance 1000 500 Intake: Oral 1000 500 Other: Voiding Method Bedside Commode Toilet Toilet # Voids 6 6 1 # Bowel Movements 2 - Exam GENERAL: The patient is lying in bed and is not in acute distress. NEUROLOGICAL: Higher mental function: The patient is awake, alert, oriented to self, place and time. Patient is following commands. No aphasia and no neglect. Cranial nerves: The pupils are round, equal and reactive to light and accommodation. Visual rocha are full to confrontation throughout. Extraocular movement is intact no nystagmus is noted. Facial sensation is normal to touch throughout. The facial strength is normal throughout. Hearing is mildly decreased bilaterally to hand rub. Tongue is midline and moved [id number] without any difficulty. No dysarthria is noted. Shoulder shrug is normal bilaterally. Motor: The strength is 5 over 5 throughout. Normal tone and bulk. Cerebellum: Normal finger to nose bilaterally. Sensation: Sensation is normal to touch throughout. Reflexes (right/left): 2+ throughout. Plantars are mute bilaterally. 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 Patient has delirium and currently she is back and oriented 3 and following commands. Recommended MRI of the brain with and without as an outpatient for further evaluation of her lipoma. GI is on board Pulmonary is on board We'll defer the rest of medical management to primary team The plan was discussed with the patient, her via phone and her nurse. Time with Patient: Less than 30
[2023-01-22 11:21] LABS: Glucose,Whole Blood 101 mg/dL (70-110)
--- NOTE | 2023-01-22 11:48 | P.PN ---
Subjective Progress Note Date: 01/22/23 Hodan Jacobs, is a 77 -year-old female who presented to [facility] emergency room with a chief complaint of generalized weakness She was evaluated in the emergency room vital examination on presentation revealed a temperature of 98.1 pulse 82 respiration 24 blood pressure 147/70 pulse ox 96% on room air Laboratory data revealed a white blood count of 7.8 hemoglobin 9.7 platelet count 342 sodium 136 potassium 4.6 chloride 100 CO2 26 BUN 36 creatinine 1.51 creatinine was 1.3 on 01/02/2023 lactic acid was elevated at 2.6 troponin normal at 0.012 TSH was low at 0.015 urine analysis was positive for leukocyte esterase Testing in the emergency room revealed chest x-ray done in the emergency room revealed mild atelectasis in the left lung and chronic elevation in the right diaphragm, EKG revealed sinus rhythm with 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 Patient was admitted to medical floor for further evaluation and treatment Past medical history is significant for history of hypertension, history of hypothyroidism, history of hyperlipidemia, history of coronary artery disease, history of hup-fepuzeb-cahnewfgg diabetes mellitus, history of obstructive sleep apnea. On review of systems patient is alert and oriented 3 in no apparent distress there is no fever or chills no headache or dizziness no chest pain , she is complaining of shortness of breath no cough no nausea or vomiting no abdominal pain no diarrhea and no urinary symptoms. 01/18/2023 patient was seen and examined on the medical she is alert and oriented 3 in no apparent distress she is still complaining of severe generalized weakness and complaining of shortness of breath with activity, patient has evidence of urinary tract infection, evidence of iron deficiency anemia, acute on chronic renal failure, and known history of coronary artery disease, echocardiogram is still pending, physical therapy occupational therapy consult, IV iron, labs today are still pending, will follow closely. on 01/19/2023 patient is alert and oriented 3. Patient complaining of incre ased shortness of breath and wheezing. Discussed case with nephrology services will order 1 time dose of IV Bumex and DC IV fluids. Chest x-ray also ordered. Patient denies chest pain. Patient denies nausea vomiting or diarrhea. Patient denies any urinary burning or frequency On 01/20/2023 patient was seen and examined on the medical floor she is alert and oriented 3 in no apparent distress she is still complaining of shortness of breath and wheezing patient also has mild lower extremity edema at this time patient has evidence of fluid overload Bumex 2 mg by mouth twice a day was resumed. Nephrology and pulmonary are following we will continue to follow closely. On 01/21/2023 patient was seen and examined on the medical floor she is alert and oriented 3 in no apparent distress she is still complaining of shortness of breath, yesterday patient had episodes of confusion and hallucination, computed tomography scan of the brain was ordered, and neurology consultation was requested, today patient was reevaluated by nephrology, Bumex was switched to IV due to continued evidence of fluid overload, otherwise patient was continued on the same medications, patient seems to be stable at this time will continue to follow closely. ON 01/22/2023 patient is alert and oriented 3. Patient currently maintained on IV Bumex. Patient reports slight improvement with shortness of breath. Patient denies chest pain. Patient denies nausea vomiting or diarrhea. Patient denies any urinary burning or frequency Objective - Vital Signs Vital signs: Vital Signs Temp 98.7 F 01/22/23 07:59 Pulse 76 01/22/23 09:31 Resp 18 01/22/23 07:59 BP 136/70 01/22/23 09:31 Pulse Ox 98 01/22/23 08:19 FiO2 2 01/20/23 08:44 Intake & Output 01/21/23 01/22/23 01/22/23 18:59 06:59 18:59 Intake Total 1000 500 Balance 1000 500 Intake: Oral 1000 500 Other: Voiding Method Bedside Commode Toilet Toilet # Voids 6 6 1 # Bowel Movements 2 - Exam In general patient is alert and oriented x 3 in no distress HEENT head normocephalic and atraumatic Neck is supple no JVD no goiter no lymphadenopathy no carotid bruit Chest examination is clear to auscultation no crackles no wheezing Cardiac exam reveals regular heart sounds S1 and S2 no gallops no murmurs Abdomen is soft nontender no organomegaly with normal bowel sounds Extremity exam reveals no edema no cyanosis or clubbing Neurological examination reveals no gross focal deficits - Labs CBC & Chem 7: 01/21/23 05:44 01/21/23 05:44 Labs: Abnormal Lab Results - Last 24 Hours (Table) 01/21/23 01/21/23 01/21/23 Range/Units 11:56 18:18 20:22 POC Glucose (mg/dL) 218 H 202 H 223 H (70-110) mg/dL 01/22/23 Range/Units 07:16 POC Glucose (mg/dL) 139 H (70-110) mg/dL Assessment and Plan Plan: Generalized weakness Evidence of urinary tract infection, started on oral doxycycline Acute kidney injury with elevated BUN and creatinine, blood pressure medications are being adjusted by nephrology, patient is maintained on IV fluid Shortness of breath with any activity Difficulty swallowing with feeling food stuck in her throat, gastroenterology consultation requested, if not available patient will follow with gastroenterology as outpatient Elevated lactic acid Anemia on presentation, with evidence of iron deficiency, patient unable to tolerate oral iron, IV Venofer was ordered Known history of hypothyroidism maintained on Synthroid was decreased TSH at this time Underlying history of hypertension Underlying history of hyperlipidemia Underlying history of euq-pmswzpp-dwiljiiiv diabetes mellitus Underlying history of COPD, stable patient was evaluated and cleared by pulmonary Underlying history of obstructive sleep apnea Underlying history of coronary artery disease increased shortness of breath 1 dose of IV Bumex ordered chest x-ray ordered Episode of confusion. Neurology following. 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 Per neurology services recommending MRI of brain with and without as outpatient for further evaluation At this time patient is admitted to medical floor She was started on IV fluid and on oral antibiotic in the emergency room Home medications reviewed and reordered, at this time I will hold metformin, and decreased dose of Synthroid to 50 g daily Will monitor closely
--- NOTE | 2023-01-22 11:59 | P.PN ---
Subjective Progress Note Date: 01/22/23 This is a pleasant 77 showed female patient who follows with Dr. van as her primary care provider. She has a history of coronary artery disease with previous coronary artery bypass grafting, previous stent placement, diabetes mellitus, hypothyroidism, hypertension, hyperlipidemia, chronic obstructive pulmonary disease from 30 years of smoking. She is maintained on Symbicort and albuterol along with oxygen at nighttime. She follows with a cpa tax out of the [facility] system. She presented here to the emergency room last evening with the complaint of generalized weakness and fatigue that have been progressing over the past week. She feels exhausted. She is dyspneic on exertion. Some abdominal pain and cramping with intermittent diarrhea. Chest x- ray revealed some mild atelectasis of the left base. No overt heart failure. Mild chronic elevation of the right hemidiaphragm. White count 7.8. Hemoglobin 9.7. Platelets 342. D-dimer 0.39. Sodium 136. Potassium 4.6. Bicarb 26. BUN 36. Creatinine 1.51. Glucose 142. TSH less than 0.015. Free T4 1 0.14. Urinalysis clean. Ultrasound of the kidneys/renal and bladder revealed no evidence of hydronephrosis. No nephrolithiasis. No solid masses identified. The urinary bladder is anechoic. She is seen today in consultation on the regular medical floor. Currently laying comfortable in bed. Awake and alert in no acute distress. Maintaining good O2 saturations in the 90s on 2 L/m per nasal cannula. Normal saline at 75 mls per hour. She is on Symbicort and albuterol. Empiric antibiotics in the form of doxycycline. The patient is seen today 01/18/2023 in follow-up on the regular medical floor. She is currently resting comfortably in bed. Awake and alert in no acute distress. Less weak today compared to yesterday. Still some fatigue on minimal exertion. Maintaining O2 saturations in the 90s on 2 L/m per nasal cannula. She says some mild wheezing. Normal saline at 75 ML's per hour. Sodium 143. Potassium 4.4. Bicarb 26. BUN 25. Creatinine 1.1. Glucose 109. She is continued on Symbicort, albuterol, empiric antibiotics in the form of doxycycline. The patient is seen today 01/19/2023 in follow-up on the regular medical floor. She is currently resting comfortably in bed. Still with some complaints of shortness of breath and wheezing. Maintaining good O2 saturations in the high 90s on 2 L/m per nasal cannula. She is continued on Symbicort and albuterol. Antibiotics in the form of doxycycline. Chest x-ray reveals evidence of atelectasis of the lung bases. Blood sugar 115. On today's evaluation of the 2022, the patient still having difficulties with shortness of breath, bronchospasm and the patient is also on oxygen between 2 and 3 L/m nasal cannula. While on 2 L, pulse ox dropped down to 86% and had to bring it up to 3 L. The patient is otherwise doing well. No specific complaints for now. I wanted to put her on IV Solu-Medrol. Nevertheless, the patient is diabetic and she declined as she is aware that steroids will make her sugars elevated and she will not tolerate steroids because of other side effects including increased agitation or restlessness. Based on that, no systemic steroids and the provided. She is on Symbicort as maintenance 2 puffs twice a day, and return about treatments [id number] and the rest of the home medications and resume. She is receiving empiric antibiotic coverage with doxycycline. She is known to have CAD, previous bypass surgery, previous stenting, and as mentioned she is diabetic and she has hypertension and h yperlipidemia and hypothyroidism. Her cpa tax is Dr. Scott out of [facility]. 01/21/2023, the patient states that she is essentially unchanged. Her respiratory status is looking the same as yesterday. She remains on Symbicort. She is on nebulized treatments [id number]. She is on no steroids for now. She did have a bout of confusion according to the nursing staff and that she was given a CAT scan of the brain that turned out to be negative. I see the patient to be very appropriate at this point in time. No other new complaints otherwise. Her cough is dry. She still bronchospastic. 01/22/2023, the patient is in the right direction. She is less bronchospastic and wheezy. I switched him to a combination of Perforomist and Pulmicort neb blotchiness twice a day and him being an albuterol [id number]. She is on Symbicort for now. No new complaints. She is still on oxygen at 2 L nasal cannula.No new labs are available from today. Blood sugar is controlled. Pro- calcitonin level was at 0.1. Objective - Vital Signs Vital signs: Vital Signs Temp 98.7 F 01/22/23 07:59 Pulse 76 01/22/23 09:31 Resp 18 01/22/23 07:59 BP 136/70 01/22/23 09:31 Pulse Ox 98 01/22/23 08:19 FiO2 2 01/20/23 08:44 Intake & Output 01/21/23 01/22/23 01/22/23 18:59 06:59 18:59 Intake Total 1000 500 Balance 1000 500 Intake: Oral 1000 500 Other: Voiding Method Bedside Commode Toilet Toilet # Voids 6 6 1 # Bowel Movements 2 - Exam GENERAL EXAM: Alert, 77-year-old female, on 2-3 L nasal cannula, comfortable in no apparent distress. HEAD: Normocephalic. EYES: Normal reaction of pupils, equal size. NOSE: Clear with pink turbinates. THROAT: No erythema or exudates. NECK: No masses, no JVD. CHEST: No chest wall deformity. LUNGS: Equal air entry with forced end expiratory wheeze on exhalation. CVS: S1 and S2 normal with no audible murmur, regular rhythm. ABDOMEN: No hepatosplenomegaly, normal bowel sounds, no guarding or rigidity. SPINE: No scoliosis or deformity SKIN: No rashes CENTRAL NERVOUS SYSTEM: No focal deficits, tone is normal in all 4 extremities. EXTREMITIES: There is no peripheral edema. No clubbing, no cyanosis. Peripheral pulses are intact. - Labs CBC & Chem 7: 01/21/23 05:44 01/21/23 05:44 Labs: Abnormal Lab Results - Last 24 Hours (Table) 01/21/23 01/21/23 01/21/23 Range/Units 11:56 18:18 20:22 POC Glucose (mg/dL) 218 H 202 H 223 H (70-110) mg/dL 01/22/23 Range/Units 07:16 POC Glucose (mg/dL) 139 H (70-110) mg/dL Assessment and Plan Plan: COPD exacerbation with secondary shortness of breath, slightly improved compared to yesterday Acute on chronic hypoxic respiratory failure and oxygen requirements are ranging between 2 and 3 L/m nasal cannula. Generalized weakness suspect secondary to diarrhea and dehydration Acute kidney injury secondary to above, improving and the creatinine is down to 1.1 Dysphagia of unclear etiology Anemia of unclear etiology, current hemoglobin 8.2 Hypothyroidism with current TSH less than 0.015, dose adjusted Chronic obstructive pulmonary disease, currently inactive in stable Former smoker Coronary disease with previous stent placement and previous bypass grafting Hypertension Hyperlipidemia Diabetes mellitus Obstructive sleep apnea, intolerant to CPAP therapy Plan: Ideally, would like to add systemic steroids. The patient declined. We'll continue same management for now. Continue with the combination of Perforomist and Pulmicort nebs twice a day. Return about treatments [id number] Wean FiO2 Increase mobility We will follow
--- NOTE | 2023-01-22 12:03 | P.PN ---
Subjective Patient is seen for follow-up for acute kidney injury. Renal function has improved with IV hydration and creatinine is down to 1.1 from 1.5 on 01/16/2023 Patient has been complaining of shortness of breath Switched to IV Bumex yesterday Shortness of breath has improved Objective - Vital Signs Vital signs: Vital Signs Temp 98.7 F 01/22/23 07:59 Pulse 76 01/22/23 09:31 Resp 18 01/22/23 07:59 BP 136/70 01/22/23 09:31 Pulse Ox 98 01/22/23 08:19 FiO2 2 01/20/23 08:44 Intake & Output 01/21/23 01/22/23 01/22/23 18:59 06:59 18:59 Intake Total 1000 500 Balance 1000 500 Intake: Oral 1000 500 Other: Voiding Method Bedside Commode Toilet Toilet # Voids 6 6 1 # Bowel Movements 2 - Exam Patient is awake, comfortable, no acute distress Examination of the heart S1 and S2 Examination of the lungs bilateral breath sounds are heard Abdomen is soft nontender Examination of the lower extremities shows no significant edema RESTAURANT WORKER exam grossly intact - Labs CBC & Chem 7: 01/21/23 05:44 01/21/23 05:44 Labs: Abnormal Lab Results - Last 24 Hours (Table) 01/21/23 01/21/23 01/22/23 Range/Units 18:18 20:22 07:16 POC Glucose (mg/dL) 202 H 223 H 139 H (70-110) mg/dL Assessment and Plan Assessment: 1. Acute kidney injury mostly prerenal secondary to hypovolemia and diuresis. Creatinine 1.51 on admission, decreased to 1.1. UA benign. IV fluids disconti nued today secondary to volume overload. Maintained on loop diuretics 2. Chronic kidney disease stage II with baseline creatinine near 1 secondary to nephrosclerosis. 3. Lactic acidosis secondary to hypovolemia/hypotension. 4. Diabetes mellitus 5. Volume overload, improving Plan: Continue IV Bumex Repeat labs in a.m.
--- NOTE | 2023-01-22 15:37 | XR ---
EXAMINATION TYPE: XR chest 1V portable DATE OF EXAM: 01/22/2023 COMPARISON: 01/19/2023 INDICATION: Worsening shortness of breath, cough, congestion TECHNIQUE: Single frontal view of the chest is obtained. FINDINGS: The heart size is normal. The pulmonary vasculature is upper limits of normal. Minimal infiltrate at the cardiac apex may be present, stable from comparison. There is elevation of the right diaphragm. IMPRESSION: 1. Minimal lingular infiltrate. Correlate for atelectasis or mild pneumonia. Atypical pneumonia could be considered.
[2023-01-22 17:16] LABS: Glucose,Whole Blood 110 mg/dL (70-110)
[2023-01-22] MEDS: methylPREDNISolone SOD SUCCI 40 MG/ML 1 ML VIAL IV SCH (17:34)
[2023-01-22 20:15] LABS: Glucose,Whole Blood 190 mg/dL (70-110)
[2023-01-22] MEDS: LORazepam 1 MG TAB PO SCH (20:39)
[2023-01-22] MEDS: ATORVASTATIN 80 MG TAB PO SCH (20:39)
[2023-01-22] MEDS: ALBUTEROL HFA INHALER INHALATION PRN (21:23)
[2023-01-22] MEDS: SYMBICORT 80-4.5 MCG INHALER INHALATION SCH (21:23)
[2023-01-23] MEDS: methylPREDNISolone SOD SUCCI 40 MG/ML 1 ML VIAL IV SCH ×3 (00:22→17:10)
[2023-01-23 05:31] LABS: Glucose,Whole Blood 193 mg/dL (70-110)
[2023-01-23] MEDS: LEVOTHYROXINE 50 MCG TAB PO SCH (05:31)
[2023-01-23] MEDS: PANTOPRAZOLE 40 MG TABLET PO SCH (05:31)
[2023-01-23] MEDS: INSULIN ASPART (NovoLOG) 100 UNIT/ML VIAL SQ SCH ×4 (05:41→20:59)
[2023-01-23] MEDS: SYMBICORT 80-4.5 MCG INHALER INHALATION SCH ×2 (09:14→21:00)
[2023-01-23] MEDS: ALBUTEROL HFA INHALER INHALATION PRN ×2 (09:14→21:00)
[2023-01-23] MEDS: ASCORBIC ACID 500 MG TAB PO SCH (09:21)
[2023-01-23] MEDS: BUMETANIDE 0.25 MG/ML 10 ML VIAL IV SCH ×2 (09:21→20:59)
[2023-01-23] MEDS: CLOPIDOGREL 75 MG TAB PO SCH (09:22)
[2023-01-23] MEDS: LORazepam 0.5 MG TAB PO SCH (09:22)
[2023-01-23] MEDS: DICYCLOMINE 20 MG TAB PO SCH ×4 (09:22→20:59)
[2023-01-23] MEDS: RANOLAZINE 500 MG TAB.ER.12H PO SCH ×2 (09:22→20:59)
[2023-01-23] MEDS: LORATADINE 10 MG TAB PO SCH (09:22)
[2023-01-23] MEDS: ENOXAPARIN 30 MG/0.3 ML SYRINGE SQ SCH (09:22)
[2023-01-23] MEDS: DULoxetine HCL 60 MG CAPSULE.DR PO SCH (09:22)
[2023-01-23] MEDS: NITROGLYCERIN 0.4MG/HR PATCH TRANSDERM SCH (09:22)
[2023-01-23] MEDS: MULTIVITAMINS, THERA 1 EACH TAB PO SCH (09:22)
[2023-01-23] MEDS: METOPROLOL TARTRATE 50 MG TAB PO SCH ×2 (09:22→20:59)
[2023-01-23 11:16] LABS: Basophils # (A) 0.01 X 10*3/uL (0.00-0.10); Basophils % (A) 0.3 %; Eosinophils # (A) 0 X 10*3/uL (0.04-0.35); Eosinophils % (A) 0 %; HCT 25.7 % (37.2-46.3); HGB 7.7 g/dL (12.0-15.0); Immature Grans, Automated 0.8 %; Lymphocytes # (A) 0.63 X 10*3/uL (0.90-5.00); Lymphocytes % (A) 17.1 %; MCH 30.6 pg (27.0-32.0); Mean Platelet Volume 9.3 fL (9.5-12.2); Monocytes % (A) 5.4 %; NRBC Per 100 WBC 0 /100 WBCS (0.0-0.0); Neutrophils # (A) 2.81 X 10*3/uL (1.80-7.70); Neutrophils % (A) 76.4 %; Platelet Count 292 X 10*3/uL (140-440); RBC 2.52 X 10*6/uL (4.10-5.20); RDW 13.2 % (11.5-14.5); WBC 3.68 X 10*3/uL (4.50-10.00)
[2023-01-23 11:17] LABS: Glucose,Whole Blood 251 mg/dL (70-110)
--- NOTE | 2023-01-23 12:05 | P.PN ---
Subjective Progress Note Date: 01/23/23 This is a pleasant 77 showed female patient who follows with Dr. van as her primary care provider. She has a history of coronary artery disease with previous coronary artery bypass grafting, previous stent placement, diabetes mellitus, hypothyroidism, hypertension, hyperlipidemia, chronic obstructive pulmonary disease from 30 years of smoking. She is maintained on Symbicort and albuterol along with oxygen at nighttime. She follows with a fig bar machine operator out of the [facility] system. She presented here to the emergency room last evening with the complaint of generalized weakness and fatigue that have been progressing over the past week. She feels exhausted. She is dyspneic on exertion. Some abdominal pain and cramping with intermittent diarrhea. Chest x- ray revealed some mild atelectasis of the left base. No overt heart failure. Mild chronic elevation of the right hemidiaphragm. White count 7.8. Hemoglobin 9.7. Platelets 342. D-dimer 0.39. Sodium 136. Potassium 4.6. Bicarb 26. BUN 36. Creatinine 1.51. Glucose 142. TSH less than 0.015. Free T4 1 0.14. Urinalysis clean. Ultrasound of the kidneys/renal and bladder revealed no evidence of hydronephrosis. No nephrolithiasis. No solid masses identified. The urinary bladder is anechoic. She is seen today in consultation on the regular medical floor. Currently laying comfortable in bed. Awake and alert in no acute distress. Maintaining good O2 saturations in the 90s on 2 L/m per nasal cannula. Normal saline at 75 mls per hour. She is on Symbicort and albuterol. Empiric antibiotics in the form of doxycycline. The patient is seen today 01/18/2023 in follow-up on the regular medical floor. She is currently resting comfortably in bed. Awake and alert in no acute distress. Less weak today compared to yesterday. Still some fatigue on minimal exertion. Maintaining O2 saturations in the 90s on 2 L/m per nasal cannula. She says some mild wheezing. Normal saline at 75 ML's per hour. Sodium 143. Potassium 4.4. Bicarb 26. BUN 25. Creatinine 1.1. Glucose 109. She is continued on Symbicort, albuterol, empiric antibiotics in the form of doxycycline. The patient is seen today 01/19/2023 in follow-up on the regular medical floor. She is currently resting comfortably in bed. Still with some complaints of shortness of breath and wheezing. Maintaining good O2 saturations in the high 90s on 2 L/m per nasal cannula. She is continued on Symbicort and albuterol. Antibiotics in the form of doxycycline. Chest x-ray reveals evidence of atelectasis of the lung bases. Blood sugar 115. On today's evaluation of the 2022, the patient still having difficulties with shortness of breath, bronchospasm and the patient is also on oxygen between 2 and 3 L/m nasal cannula. While on 2 L, pulse ox dropped down to 86% and had to bring it up to 3 L. The patient is otherwise doing well. No specific complaints for now. I wanted to put her on IV Solu-Medrol. Nevertheless, the patient is diabetic and she declined as she is aware that steroids will make her sugars elevated and she will not tolerate steroids because of other side effects including increased agitation or restlessness. Based on that, no systemic steroids and the provided. She is on Symbicort as maintenance 2 puffs twice a day, and return about treatments [id number] and the rest of the home medications and resume. She is receiving empiric antibiotic coverage with doxycycline. She is known to have CAD, previous bypass surgery, previous stenting, and as mentioned she is diabetic and she has hypertension and h yperlipidemia and hypothyroidism. Her fig bar machine operator is Dr. Scott out of [facility]. 01/21/2023, the patient states that she is essentially unchanged. Her respiratory status is looking the same as yesterday. She remains on Symbicort. She is on nebulized treatments [id number]. She is on no steroids for now. She did have a bout of confusion according to the nursing staff and that she was given a CAT scan of the brain that turned out to be negative. I see the patient to be very appropriate at this point in time. No other new complaints otherwise. Her cough is dry. She still bronchospastic. 01/22/2023, the patient is in the right direction. She is less bronchospastic and wheezy. I switched him to a combination of Perforomist and Pulmicort neb blotchiness twice a day and him being an albuterol [id number]. She is on Symbicort for now. No new complaints. She is still on oxygen at 2 L nasal cannula.No new labs are available from today. Blood sugar is controlled. Pro- calcitonin level was at 0.1. On 01/23/2023, the patient is being seen for a follow-up. Since yesterday, the patient was diagnosed having Covid 19 and she tested positive. Based on that, the patient was started on IV Solu-Medrol 40 mg every 8 hours. Perforomist and Pulmicort updrafts were also discontinued and the patient was placed back on Symbicort and albuterol HFA. She remains on oxygen at 3 L. Some limited cough and congestion. No other new complaints otherwise for now. Objective - Vital Signs Vital signs: Vital Signs Temp 97.6 F 01/23/23 07:10 Pulse 73 01/23/23 07:10 Resp 16 01/23/23 07:10 BP 126/52 01/23/23 07:10 Pulse Ox 91 L 01/23/23 09:18 FiO2 2 01/20/23 08:44 Intake & Output 01/22/23 01/23/23 01/23/23 18:59 06:59 18:59 Intake Total 480 Balance 480 Intake: Oral 480 Other: Voiding Method Toilet Toilet # Voids 1 1 - Exam GENERAL EXAM: Alert, 77-year-old female, on 2-3 L nasal cannula, comfortable in no apparent distress. HEAD: Normocephalic. EYES: Normal reaction of pupils, equal size. NOSE: Clear with pink turbinates. THROAT: No erythema or exudates. NECK: No masses, no JVD. CHEST: No chest wall deformity. LUNGS: Equal air entry with forced end expiratory wheeze on exhalation. CVS: S1 and S2 normal with no audible murmur, regular rhythm. ABDOMEN: No hepatosplenomegaly, normal bowel sounds, no guarding or rigidity. SPINE: No scoliosis or deformity SKIN: No rashes CENTRAL NERVOUS SYSTEM: No focal deficits, tone is normal in all 4 extremities. EXTREMITIES: There is no peripheral edema. No clubbing, no cyanosis. Peripheral pulses are intact. - Labs CBC & Chem 7: 01/23/23 07:12 01/21/23 05:44 Labs: Abnormal Lab Results - Last 24 Hours (Table) 01/22/23 01/22/23 01/23/23 Range/Units 15:08 20:13 05:30 WBC (4.50-10.00) X 10*3/uL RBC (4.10-5.20) X 10*6/uL Hgb (12.0-15.0) g/dL Hct (37.2-46.3) % MCV (80.0-97.0) fL MCHC (32.0-37.0) g/dL MPV (9.5-12.2) fL Lymphocytes # (0.90-5.00) X 10*3/uL Eosinophils # (0.04-0.35) X 10*3/uL POC Glucose (mg/dL) 190 H 193 H (70-110) mg/dL Coronavirus (PCR) Detected A (Not Detectd) 01/23/23 01/23/23 Range/Units 07:12 11:16 WBC 3.68 L (4.50-10.00) X 10*3/uL RBC 2.52 L (4.10-5.20) X 10*6/uL Hgb 7.7 L (12.0-15.0) g/dL Hct 25.7 L (37.2-46.3) % MCV 102.0 H (80.0-97.0) fL MCHC 30.0 L (32.0-37.0) g/dL MPV 9.3 L (9.5-12.2) fL Lymphocytes # 0.63 L (0.90-5.00) X 10*3/uL Eosinophils # 0 L (0.04-0.35) X 10*3/uL POC Glucose (mg/dL) 251 H (70-110) mg/dL Coronavirus (PCR) (Not Detectd) Assessment and Plan Plan: Acute Covid 19 infection, exact timing of infection is not clear. The patient tested positive and the patient is currently on IV Solu-Medrol COPD exacerbation with secondary shortness of breath, secondary to above Acute on chronic hypoxic respiratory failure and oxygen requirements are ranging between 2 and 3 L/m nasal cannula. Generalized weakness suspect secondary to diarrhea and dehydration Acute kidney injury secondary to above, improving and the creatinine is down to 1.1 Dysphagia of unclear etiology Anemia of unclear etiology, current hemoglobin 8.2 Hypothyroidism with current TSH less than 0.015, dose adjusted Chronic obstructive pulmonary disease, currently inactive in stable Former smoker Coronary disease with previous stent placement and previous bypass grafting Hypertension Hyperlipidemia Diabetes mellitus Obstructive sleep apnea, intolerant to CPAP therapy Plan: Agree on the Solu-Medrol Check d-dimer, LDH and CRP Keep oxygen at 2 L/m nasal cannula Not a candidate for Remdesivir as the exact timing of the infection is not known and has to be more than 5 days Wean FiO2 Increase mobility We will follow
--- NOTE | 2023-01-23 12:38 | P.PN ---
Subjective Progress Note Date: 01/23/23 The patient seen at bedside and she feels she is doing better today compared to yesterday. She feels her breathing is doing better. Patient had COVID PCR testing and was positive. Objective - Vital Signs Vital signs: Vital Signs Temp 97.6 F 01/23/23 07:10 Pulse 73 01/23/23 07:10 Resp 16 01/23/23 07:10 BP 126/52 01/23/23 07:10 Pulse Ox 91 L 01/23/23 09:18 FiO2 2 01/20/23 08:44 Intake & Output 01/22/23 01/23/23 01/23/23 18:59 06:59 18:59 Intake Total 480 Balance 480 Intake: Oral 480 Other: Voiding Method Toilet Toilet # Voids 1 1 - Exam GENERAL: The patient is lying in bed and is not in acute distress. NEUROLOGICAL: Higher mental function: The patient is awake, alert, oriented to self, place and time. Patient is following commands. No aphasia and no neglect. Cranial nerves: The pupils are round, equal and reactive to light and accommodation. Visual rocha are full to confrontation throughout. Extraocular movement is intact no nystagmus is noted. Facial sensation is normal to touch throughout. The facial strength is normal throughout. Hearing is mildly decreased bilaterally to hand rub. Tongue is midline and moved [id number] without any difficulty. No dysarthria is noted. Shoulder shrug is normal bilaterally. Motor: The strength is 5 over 5 throughout. Normal tone and bulk. Cerebellum: Normal finger to nose bilaterally. Sensation: Sensation is normal to touch throughout. Reflexes (right/left): 2+ throughout. Plantars are mute bilaterally. - Labs CBC & Chem 7: 01/23/23 07:12 01/21/23 05:44 Labs: Abnormal Lab Results - Last 24 Hours (Table) 01/22/23 01/22/23 01/23/23 Range/Units 15:08 20:13 05:30 WBC (4.50-10.00) X 10*3/uL RBC (4.10-5.20) X 10*6/uL Hgb (12.0-15.0) g/dL Hct (37.2-46.3) % MCV (80.0-97.0) fL MCHC (32.0-37.0) g/dL MPV (9.5-12.2) fL Lymphocytes # (0.90-5.00) X 10*3/uL Eosinophils # (0.04-0.35) X 10*3/uL POC Glucose (mg/dL) 190 H 193 H (70-110) mg/dL Coronavirus (PCR) Detected A (Not Detectd) 01/23/23 01/23/23 Range/Units 07:12 11:16 WBC 3.68 L (4.50-10.00) X 10*3/uL RBC 2.52 L (4.10-5.20) X 10*6/uL Hgb 7.7 L (12.0-15.0) g/dL Hct 25.7 L (37.2-46.3) % MCV 102.0 H (80.0-97.0) fL MCHC 30.0 L (32.0-37.0) g/dL MPV 9.3 L (9.5-12.2) fL Lymphocytes # 0.63 L (0.90-5.00) X 10*3/uL Eosinophils # 0 L (0.04-0.35) X 10*3/uL POC Glucose (mg/dL) 251 H (70-110) mg/dL Coronavirus (PCR) (Not Detectd) Assessment and Plan Assessment: Patient had the episodes of confusion mostly upon waking up or at nighttime likely delirium (could be medication vs hospital induced)---improved 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 Patient has delirium and currently she is back and oriente d 3 and following commands. Recommended MRI of the brain with and without as an outpatient for further evaluation of her lipoma. GI is on board Pulmonary is on board We'll defer the rest of medical management to primary team Recommend patient to follow-up with neurologist as outpatient especially with this history of lipoma seen on CT. The plan was discussed with the patient and her nurse. There is no further neurological work-up needed. Will sign off. Please reconsult if needed. Time with Patient: Less than 30
--- NOTE | 2023-01-23 12:50 | P.PN ---
Subjective Patient is seen for follow-up for acute kidney injury. Renal function has improved with IV hydration and creatinine is down to 1.1 from 1.5 on 01/16/2023 Patient has been complaining of shortness of breath Switched to IV Bumex yesterday Shortness of breath has improved Patient tested positive for COVID-19 PCR. She is maintained on steroids. Overall feeling slightly better. Patient remains on IV Bumex every 12 hours. Urine output not accurately charted. Labs pending from today. Objective - Vital Signs Vital signs: Vital Signs Temp 97.6 F 01/23/23 07:10 Pulse 73 01/23/23 07:10 Resp 16 01/23/23 07:10 BP 126/52 01/23/23 07:10 Pulse Ox 91 L 01/23/23 09:18 FiO2 2 01/20/23 08:44 Intake & Output 01/22/23 01/23/23 01/23/23 18:59 06:59 18:59 Intake Total 480 Balance 480 Intake: Oral 480 Other: Voiding Method Toilet Toilet # Voids 1 1 - Exam Patient is awake, comfortable, no acute distress Examination of the heart S1 and S2 Examination of the lungs bilateral breath sounds are heard Abdomen is soft nontender Examination of the lower extremities shows no significant edema CONCRETE MASON exam grossly intact - Labs CBC & Chem 7: 01/23/23 07:12 01/21/23 05:44 Labs: Abnormal Lab Results - Last 24 Hours (Table) 01/22/23 01/22/23 01/23/23 Range/Units 15:08 20:13 05:30 WBC (4.50-10.00) X 10*3/uL RBC (4.10-5.20) X 10*6/uL Hgb (12.0-15.0) g/dL Hct (37.2-46.3) % MCV (80.0-97.0) fL MCHC (32.0-37.0) g/dL MPV (9.5-12.2) fL Lymphocytes # (0.90-5.00) X 10*3/uL Eosinophils # (0.04-0.35) X 10*3/uL POC Glucose (mg/dL) 190 H 193 H (70-110) mg/dL Coronavirus (PCR) Detected A (Not Detectd) 01/23/23 01/23/23 Range/Units 07:12 11:16 WBC 3.68 L (4.50-10.00) X 10*3/uL RBC 2.52 L (4.10-5.20) X 10*6/uL Hgb 7.7 L (12.0-15.0) g/dL Hct 25.7 L (37.2-46.3) % MCV 102.0 H (80.0-97.0) fL MCHC 30.0 L (32.0-37.0) g/dL MPV 9.3 L (9.5-12.2) fL Lymphocytes # 0.63 L (0.90-5.00) X 10*3/uL Eosinophils # 0 L (0.04-0.35) X 10*3/uL POC Glucose (mg/dL) 251 H (70-110) mg/dL Coronavirus (PCR) (Not Detectd) Assessment and Plan Assessment: 1. Acute kidney injury mostly prerenal secondary to hypovolemia and diuresis. Creatinine 1.51 on admission, decreased to 1.1. UA benign. IV fluids discontinued today secondary to volume overload. Maintained on loop diuretics 2. Chronic kidney disease stage II with baseline creatinine near 1 secondary to nephrosclerosis. 3. Lactic acidosis secondary to hypovolemia/hypotension. 4. Diabetes mellitus 5. Volume overload, improving 6. COVID-19 infection possibly pneumonia as well 7. Anemia with iron deficiency status post IV iron Plan: Continue with current dose of IV Bumex Follow-up on labs from today
[2023-01-23 13:46] LABS: ALT 29 U/L (8-44); AST 25 U/L (13-35); African American GFR (CKD) 61.2 (60.0-200.0); Albumin 3.4 g/dL (3.8-4.9); Albumin/Globulin Ratio 1.41 (1.60-3.17); Alkaline Phosphatase 55 U/L (41-126); Blood Urea Nitrogen 17.3 mg/dL (9.0-27.0); Calcium 8.9 mg/dL (8.7-10.3); Carbon Dioxide 22.7 mmol/L (20.0-27.5); Chloride 105 mmol/L (96-109); Globulin 2.4 g/dL (1.6-3.3); Glucose 188 mg/dL (70-110); Non-African American GFR(CKD) 52.8 (60.0-200.0); Potassium 4.1 mmol/L (3.5-5.5); Sodium 142 mmol/L (135-145); Total Bilirubin <0.15 mg/dL (0.30-1.20); Total Protein 5.7 g/dL (6.2-8.2)
[2023-01-23 16:17] LABS: Glucose,Whole Blood 303 mg/dL (70-110)
[2023-01-23 20:33] LABS: Glucose,Whole Blood 307 mg/dL (70-110)
[2023-01-23] MEDS: LORazepam 1 MG TAB PO SCH (20:59)
[2023-01-23] MEDS: ATORVASTATIN 80 MG TAB PO SCH (20:59)
[2023-01-24] MEDS: methylPREDNISolone SOD SUCCI 40 MG/ML 1 ML VIAL IV SCH ×3 (00:06→18:23)
[2023-01-24] MEDS: ACETAMINOPHEN TAB 325 MG TAB PO PRN ×2 (00:08→22:49)
[2023-01-24 01:43] LABS: C Reactive Protein 3.6 mg/dL (0.00-0.80)
[2023-01-24 06:09] LABS: Glucose,Whole Blood 223 mg/dL (70-110)
[2023-01-24] MEDS: PANTOPRAZOLE 40 MG TABLET PO SCH (06:30)
[2023-01-24] MEDS: LEVOTHYROXINE 50 MCG TAB PO SCH (06:30)
[2023-01-24] MEDS: INSULIN ASPART (NovoLOG) 100 UNIT/ML VIAL SQ SCH ×4 (06:30→21:22)
--- NOTE | 2023-01-24 09:09 | P.PN ---
Subjective Progress Note Date: 01/23/23 Hodan Jacobs, is a 77 -year-old female who presented to [facility] emergency room with a chief complaint of generalized weakness She was evaluated in the emergency room vital examination on presentation revealed a temperature of 98.1 pulse 82 respiration 24 blood pressure 147/70 pulse ox 96% on room air Laboratory data revealed a white blood count of 7.8 hemoglobin 9.7 platelet count 342 sodium 136 potassium 4.6 chloride 100 CO2 26 BUN 36 creatinine 1.51 creatinine was 1.3 on 01/02/2023 lactic acid was elevated at 2.6 troponin normal at 0.012 TSH was low at 0.015 urine analysis was positive for leukocyte esterase Testing in the emergency room revealed chest x-ray done in the emergency room revealed mild atelectasis in the left lung and chronic elevation in the right diaphragm, EKG revealed sinus rhythm with 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 Patient was admitted to medical floor for further evaluation and treatment Past medical history is significant for history of hypertension, history of hypothyroidism, history of hyperlipidemia, history of coronary artery disease, history of [id number]-mwuemxnkb diabetes mellitus, history of obstructive sleep apnea. On review of systems patient is alert and oriented 3 in no apparent distress there is no fever or chills no headache or dizziness no chest pain , she is complaining of shortness of breath no cough no nausea or vomiting no abdominal pain no diarrhea and no urinary symptoms. 01/18/2023 patient was seen and examined on the medical she is alert and oriented 3 in no apparent distress she is still complaining of severe generalized weakness and complaining of shortness of breath with activity, patient has evidence of urinary tract infection, evidence of iron deficiency anemia, acute on chronic renal failure, and known history of coronary artery disease, echocardiogram is still pending, physical therapy occupational therapy consult, IV iron, labs today are still pending, will follow closely. on 01/19/2023 patient is alert and oriented 3. Patient complaining of incre ased shortness of breath and wheezing. Discussed case with nephrology services will order 1 time dose of IV Bumex and DC IV fluids. Chest x-ray also ordered. Patient denies chest pain. Patient denies nausea vomiting or diarrhea. Patient denies any urinary burning or frequency On 01/20/2023 patient was seen and examined on the medical floor she is alert and oriented 3 in no apparent distress she is still complaining of shortness of breath and wheezing patient also has mild lower extremity edema at this time patient has evidence of fluid overload Bumex 2 mg by mouth twice a day was resumed. Nephrology and pulmonary are following we will continue to follow closely. On 01/21/2023 patient was seen and examined on the medical floor she is alert and oriented 3 in no apparent distress she is still complaining of shortness of breath, yesterday patient had episodes of confusion and hallucination, computed tomography scan of the brain was ordered, and neurology consultation was requested, today patient was reevaluated by nephrology, Bumex was switched to IV due to continued evidence of fluid overload, otherwise patient was continued on the same medications, patient seems to be stable at this time will continue to follow closely. ON 01/22/2023 patient is alert and oriented 3. Patient currently maintained on IV Bumex. Patient reports slight improvement with shortness of breath. Patient denies chest pain. Patient denies nausea vomiting or diarrhea. Patient denies any urinary burning or frequency. On 01/23/2023 patient was seen and examined on the medical floor she is alert and oriented 3 in no apparent distress she is complaining of cough, she stated that her shortness of breath has improved, yesterday patient tested positive for COVID-19, she was agreeable to start IV Solu-Medrol, she was also started on insulin sliding scale, otherwise she denies any complaints there is no fever or chills no headache or dizziness no chest pain no nausea or vomiting no abdominal pain no diarrhea and no urinary symptoms Objective - Vital Signs Vital signs: Vital Signs Temp 97.6 F 01/23/23 07:10 Pulse 73 01/23/23 07:10 Resp 16 01/23/23 07:10 BP 126/52 01/23/23 07:10 Pulse Ox 99 01/23/23 07:10 FiO2 2 01/20/23 08:44 Intake & Output 01/22/23 01/23/23 01/23/23 18:59 06:59 18:59 Intake Total 480 Balance 480 Intake: Oral 480 Other: Voiding Method Toilet Toilet # Voids 1 1 - Exam In general patient is alert and oriented x 3 in no distress HEENT head normocephalic and atraumatic Neck is supple no JVD no goiter no lymphadenopathy no carotid bruit Chest examination is clear to auscultation no crackles no wheezing Cardiac exam reveals regular heart sounds S1 and S2 no gallops no murmurs Abdomen is soft nontender no organomegaly with normal bowel sounds Extremity exam reveals no edema no cyanosis or clubbing Neurological examination reveals no gross focal deficits - Labs CBC & Chem 7: 01/23/23 07:12 01/23/23 07:12 Labs: Abnormal Lab Results - Last 24 Hours (Table) 01/22/23 01/22/23 01/23/23 Range/Units 15:08 20:13 05:30 POC Glucose (mg/dL) 190 H 193 H (70-110) mg/dL Coronavirus (PCR) Detected A (Not Detectd) Assessment and Plan Plan: Generalized weakness Evidence of urinary tract infection, started on oral doxycycline Acute kidney injury with elevated BUN and creatinine, blood pressure medications are being adjusted by nephrology, patient is maintained on IV fluid Shortness of breath with any activity Difficulty swallowing with feeling food stuck in her throat, gastroenterology consultation requested, if not available patient will follow with gastroenterology as outpatient Elevated lactic acid Anemia on presentation, with evidence of iron deficiency, patient unable to tolerate oral iron, IV Venofer was ordered Known history of hypothyroidism maintained on Synthroid was decreased TSH at this time Underlying history of hypertension Underlying history of hyperlipidemia Underlying history of [id number] diabetes mellitus Underlying history of COPD, stable patient was evaluated and cleared by pulmonary Underlying history of obstructive sleep apnea Underlying history of coronary artery disease increased shortness of breath 1 dose of IV Bumex ordered chest x-ray ordered Episode of confusion. Neurology following. 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 Per neurology services recommending MRI of brain with and without as outpatient for further evaluation At this time patient is admitted to medical floor She was started on IV fluid and on oral antibiotic in the emergency room Home medications reviewed and reordered, at this time I will hold metformin, and decreased dose of Synthroid to 50 g daily Will monitor closely
[2023-01-24] MEDS: SYMBICORT 80-4.5 MCG INHALER INHALATION SCH ×2 (09:52→21:13)
[2023-01-24] MEDS: ALBUTEROL HFA INHALER INHALATION PRN ×2 (09:52→21:13)
[2023-01-24] MEDS: ENOXAPARIN 40 MG/0.4 ML SYRINGE SQ SCH (09:53)
[2023-01-24] MEDS: NITROGLYCERIN 0.4MG/HR PATCH TRANSDERM SCH (09:53)
[2023-01-24] MEDS: DICYCLOMINE 20 MG TAB PO SCH ×4 (09:54→21:23)
[2023-01-24] MEDS: LORazepam 0.5 MG TAB PO SCH (09:54)
[2023-01-24] MEDS: DULoxetine HCL 60 MG CAPSULE.DR PO SCH (09:54)
[2023-01-24] MEDS: METOPROLOL TARTRATE 50 MG TAB PO SCH ×2 (09:54→21:23)
[2023-01-24] MEDS: LORATADINE 10 MG TAB PO SCH (09:54)
[2023-01-24] MEDS: CLOPIDOGREL 75 MG TAB PO SCH (09:54)
[2023-01-24] MEDS: MULTIVITAMINS, THERA 1 EACH TAB PO SCH (09:54)
[2023-01-24] MEDS: BUMETANIDE 0.25 MG/ML 10 ML VIAL IV SCH ×2 (10:10→21:26)
[2023-01-24] MEDS: RANOLAZINE 500 MG TAB.ER.12H PO SCH ×2 (10:12→22:46)
--- NOTE | 2023-01-24 10:13 | P.PN ---
Subjective Progress Note Date: 01/24/23 Hodan Jacobs, is a 77 -year-old female who presented to [facility] emergency room with a chief complaint of generalized weakness She was evaluated in the emergency room vital examination on presentation revealed a temperature of 98.1 pulse 82 respiration 24 blood pressure 147/70 pulse ox 96% on room air Laboratory data revealed a white blood count of 7.8 hemoglobin 9.7 platelet count 342 sodium 136 potassium 4.6 chloride 100 CO2 26 BUN 36 creatinine 1.51 creatinine was 1.3 on 01/02/2023 lactic acid was elevated at 2.6 troponin normal at 0.012 TSH was low at 0.015 urine analysis was positive for leukocyte esterase Testing in the emergency room revealed chest x-ray done in the emergency room revealed mild atelectasis in the left lung and chronic elevation in the right diaphragm, EKG revealed sinus rhythm with 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 Patient was admitted to medical floor for further evaluation and treatment Past medical history is significant for history of hypertension, history of hypothyroidism, history of hyperlipidemia, history of coronary artery disease, history of mvm-mypalef-yhuhetoyp diabetes mellitus, history of obstructive sleep apnea. On review of systems patient is alert and oriented 3 in no apparent distress there is no fever or chills no headache or dizziness no chest pain , she is complaining of shortness of breath no cough no nausea or vomiting no abdominal pain no diarrhea and no urinary symptoms. 01/18/2023 patient was seen and examined on the medical she is alert and oriented 3 in no apparent distress she is still complaining of severe generalized weakness and complaining of shortness of breath with activity, patient has evidence of urinary tract infection, evidence of iron deficiency anemia, acute on chronic renal failure, and known history of coronary artery disease, echocardiogram is still pending, physical therapy occupational therapy consult, IV iron, labs today are still pending, will follow closely. on 01/19/2023 patient is alert and oriented 3. Patient complaining of incre ased shortness of breath and wheezing. Discussed case with nephrology services will order 1 time dose of IV Bumex and DC IV fluids. Chest x-ray also ordered. Patient denies chest pain. Patient denies nausea vomiting or diarrhea. Patient denies any urinary burning or frequency On 01/20/2023 patient was seen and examined on the medical floor she is alert and oriented 3 in no apparent distress she is still complaining of shortness of breath and wheezing patient also has mild lower extremity edema at this time patient has evidence of fluid overload Bumex 2 mg by mouth twice a day was resumed. Nephrology and pulmonary are following we will continue to follow closely. On 01/21/2023 patient was seen and examined on the medical floor she is alert and oriented 3 in no apparent distress she is still complaining of shortness of breath, yesterday patient had episodes of confusion and hallucination, computed tomography scan of the brain was ordered, and neurology consultation was requested, today patient was reevaluated by nephrology, Bumex was switched to IV due to continued evidence of fluid overload, otherwise patient was continued on the same medications, patient seems to be stable at this time will continue to follow closely. ON 01/22/2023 patient is alert and oriented 3. Patient currently maintained on IV Bumex. Patient reports slight improvement with shortness of breath. Patient denies chest pain. Patient denies nausea vomiting or diarrhea. Patient denies any urinary burning or frequency. On 01/23/2023 patient was seen and examined on the medical floor she is alert and oriented 3 in no apparent distress she is complaining of cough, she stated that her shortness of breath has improved, yesterday patient tested positive for COVID-19, she was agreeable to start IV Solu-Medrol, she was also started on insulin sliding scale, otherwise she denies any complaints there is no fever or chills no headache or dizziness no chest pain no nausea or vomiting no abdominal pain no diarrhea and no urinary symptoms On 01/24/2023 patient is alert and oriented 3. Patient reports some improvement with shortness of breath. Patient remains on IV steroids. Temp 97.8, pulse rate 69, respiratory rate 24, blood pressure 150/63 with pulse ox 98% on 3 L Objective - Vital Signs Vital signs: Vital Signs Temp 97.8 F 01/24/23 01:49 Pulse 69 01/24/23 01:49 Resp 24 01/24/23 01:49 BP 150/63 01/24/23 01:49 Pulse Ox 98 01/24/23 09:57 FiO2 2 01/20/23 08:44 Intake & Output 01/23/23 01/24/23 01/24/23 18:59 06:59 18:59 Intake Total 480 Balance 480 Intake: Oral 480 Other: Voiding Method Toilet # Voids 1 3 - Exam In general patient is alert and oriented x 3 in no distress HEENT head normocephalic and atraumatic Neck is supple no JVD no goiter no lymphadenopathy no carotid bruit Chest examination is clear to auscultation no crackles no wheezing Cardiac exam reveals regular heart sounds S1 and S2 no gallops no murmurs Abdomen is soft nontender no organomegaly with normal bowel sounds Extremity exam reveals no edema no cyanosis or clubbing Neurological examination reveals no gross focal deficits - Labs CBC & Chem 7: 01/23/23 07:12 01/23/23 07:12 Labs: Abnormal Lab Results - Last 24 Hours (Table) 01/23/23 01/23/23 01/23/23 Range/Units 07:12 07:12 11:16 WBC 3.68 L (4.50-10.00) X 10*3/uL RBC 2.52 L (4.10-5.20) X 10*6/uL Hgb 7.7 L (12.0-15.0) g/dL Hct 25.7 L (37.2-46.3) % MCV 102.0 H (80.0-97.0) fL MCHC 30.0 L (32.0-37.0) g/dL MPV 9.3 L (9.5-12.2) fL Lymphocytes # 0.63 L (0.90-5.00) X 10*3/uL Eosinophils # 0 L (0.04-0.35) X 10*3/uL D-Dimer (<0.60) mg/L FEU Est GFR (CKD-EPI)NonAf 52.8 L (60.0-200.0) Glucose 188 H (70-110) mg/dL POC Glucose (mg/dL) 251 H (70-110) mg/dL Total Bilirubin <0.15 L (0.30-1.20) mg/dL C-Reactive Protein (0.00-0.80) mg/dL Total Protein 5.7 L (6.2-8.2) g/dL Albumin 3.4 L (3.8-4.9) g/dL Albumin/Globulin Ratio 1.41 L (1.60-3.17) g/dL 01/23/23 01/23/23 01/23/23 Range/Units 12:29 12:29 16:15 WBC (4.50-10.00) X 10*3/uL RBC (4.10-5.20) X 10*6/uL Hgb (12.0-15.0) g/dL Hct (37.2-46.3) % MCV (80.0-97.0) fL MCHC (32.0-37.0) g/dL MPV (9.5-12.2) fL Lymphocytes # (0.90-5.00) X 10*3/uL Eosinophils # (0.04-0.35) X 10*3/uL D-Dimer 0.74 H (<0.60) mg/L FEU Est GFR (CKD-EPI)NonAf (60.0-200.0) Glucose (70-110) mg/dL POC Glucose (mg/dL) 303 H (70-110) mg/dL Total Bilirubin (0.30-1.20) mg/dL C-Reactive Protein 3.60 H (0.00-0.80) mg/dL Total Protein (6.2-8.2) g/dL Albumin (3.8-4.9) g/dL Albumin/Globulin Ratio (1.60-3.17) g/dL 01/23/23 01/24/23 Range/Units 20:26 06:07 WBC (4.50-10.00) X 10*3/uL RBC (4.10-5.20) X 10*6/uL Hgb (12.0-15.0) g/dL Hct (37.2-46.3) % MCV (80.0-97.0) fL MCHC (32.0-37.0) g/dL MPV (9.5-12.2) fL Lymphocytes # (0.90-5.00) X 10*3/uL Eosinophils # (0.04-0.35) X 10*3/uL D-Dimer (<0.60) mg/L FEU Est GFR (CKD-EPI)NonAf (60.0-200.0) Glucose (70-110) mg/dL POC Glucose (mg/dL) 307 H 223 H (70-110) mg/dL Total Bilirubin (0.30-1.20) mg/dL C-Reactive Protein (0.00-0.80) mg/dL Total Protein (6.2-8.2) g/dL Albumin (3.8-4.9) g/dL Albumin/Globulin Ratio (1.60-3.17) g/dL Assessment and Plan Plan: Generalized weakness Evidence of urinary tract infection, started on oral doxycycline Acute kidney injury with elevated BUN and creatinine, blood pressure medications are being adjusted by nephrology, patient is maintained on IV fluid COVID-19 infection. Patient maintained on IV steroids Difficulty swallowing with feeling food stuck in her throat, gastroenterology consultation requested, if not available patient will follow with gastroenterology as outpatient Elevated lactic acid Anemia on presentation, with evidence of iron deficiency, patient unable to tolerate oral iron, IV Venofer was ordered Known history of hypothyroidism maintained on Synthroid was decreased TSH at this time Underlying history of hypertension Underlying history of hyperlipidemia Underlying history of [id number]-aorbeqjjv diabetes mellitus Underlying history of COPD, stable patient was evaluated and cleared by pulmonary Underlying history of obstructive sleep apnea Underlying history of coronary artery disease Episode of confusion. Neurology following. 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 Per neurology services recommending MRI of brain with and without as outpatient for further evaluation At this time patient is admitted to medical floor Home medications reviewed and reordered, at this time I will hold metformin, and decreased dose of Synthroid to 50 g daily Will monitor closely
[2023-01-24 10:21] LABS: Basophils % (A) 0 %; Eosinophils % (A) 0 %; HCT 26.1 % (34.0-46.0); HGB 8.4 gm/dL (11.4-16.0); Hypochromasia Slight; Lymphocytes # (A) 0.9 k/uL (1.0-4.8); Lymphocytes % (A) 9 %; MCH 31.4 pg (25.0-35.0); MCV 98.1 fL (80.0-100.0); Mean Platelet Volume 7.4; Monocytes # (A) 0.6 k/uL (0-1.0); Monocytes % (A) 6 %; Neutrophils # (A) 8.3 k/uL (1.3-7.7); Neutrophils % (A) 85 %; Platelet Count 330 k/uL (150-450); RBC 2.67 m/uL (3.80-5.40); WBC 9.9 k/uL (3.8-10.6)
[2023-01-24] MEDS: ASCORBIC ACID 500 MG TAB PO SCH (10:23)
[2023-01-24 11:53] LABS: Glucose,Whole Blood 265 mg/dL (70-110)
--- NOTE | 2023-01-24 12:17 | P.PN ---
Subjective Progress Note Date: 01/24/23 This is a pleasant 77 showed female patient who follows with Dr. van as her primary care provider. She has a history of coronary artery disease with previous coronary artery bypass grafting, previous stent placement, diabetes mellitus, hypothyroidism, hypertension, hyperlipidemia, chronic obstructive pulmonary disease from 30 years of smoking. She is maintained on Symbicort and albuterol along with oxygen at nighttime. She follows with a pack press operator out of the [facility] system. She presented here to the emergency room last evening with the complaint of generalized weakness and fatigue that have been progressing over the past week. She feels exhausted. She is dyspneic on exertion. Some abdominal pain and cramping with intermittent diarrhea. Chest x- ray revealed some mild atelectasis of the left base. No overt heart failure. Mild chronic elevation of the right hemidiaphragm. White count 7.8. Hemoglobin 9.7. Platelets 342. D-dimer 0.39. Sodium 136. Potassium 4.6. Bicarb 26. BUN 36. Creatinine 1.51. Glucose 142. TSH less than 0.015. Free T4 1 0.14. Urinalysis clean. Ultrasound of the kidneys/renal and bladder revealed no evidence of hydronephrosis. No nephrolithiasis. No solid masses identified. The urinary bladder is anechoic. She is seen today in consultation on the regular medical floor. Currently laying comfortable in bed. Awake and alert in no acute distress. Maintaining good O2 saturations in the 90s on 2 L/m per nasal cannula. Normal saline at 75 mls per hour. She is on Symbicort and albuterol. Empiric antibiotics in the form of doxycycline. The patient is seen today 01/18/2023 in follow-up on the regular medical floor. She is currently resting comfortably in bed. Awake and alert in no acute distress. Less weak today compared to yesterday. Still some fatigue on minimal exertion. Maintaining O2 saturations in the 90s on 2 L/m per nasal cannula. She says some mild wheezing. Normal saline at 75 ML's per hour. Sodium 143. Potassium 4.4. Bicarb 26. BUN 25. Creatinine 1.1. Glucose 109. She is continued on Symbicort, albuterol, empiric antibiotics in the form of doxycycline. The patient is seen today 01/19/2023 in follow-up on the regular medical floor. She is currently resting comfortably in bed. Still with some complaints of shortness of breath and wheezing. Maintaining good O2 saturations in the high 90s on 2 L/m per nasal cannula. She is continued on Symbicort and albuterol. Antibiotics in the form of doxycycline. Chest x-ray reveals evidence of atelectasis of the lung bases. Blood sugar 115. On today's evaluation of the 2022, the patient still having difficulties with shortness of breath, bronchospasm and the patient is also on oxygen between 2 and 3 L/m nasal cannula. While on 2 L, pulse ox dropped down to 86% and had to bring it up to 3 L. The patient is otherwise doing well. No specific complaints for now. I wanted to put her on IV Solu-Medrol. Nevertheless, the patient is diabetic and she declined as she is aware that steroids will make her sugars elevated and she will not tolerate steroids because of other side effects including increased agitation or restlessness. Based on that, no systemic steroids and the provided. She is on Symbicort as maintenance 2 puffs twice a day, and return about treatments [id number] and the rest of the home medications and resume. She is receiving empiric antibiotic coverage with doxycycline. She is known to have CAD, previous bypass surgery, previous stenting, and as mentioned she is diabetic and she has hypertension and h yperlipidemia and hypothyroidism. Her pack press operator is Dr. Scott out of [facility]. 01/21/2023, the patient states that she is essentially unchanged. Her respiratory status is looking the same as yesterday. She remains on Symbicort. She is on nebulized treatments [id number]. She is on no steroids for now. She did have a bout of confusion according to the nursing staff and that she was given a CAT scan of the brain that turned out to be negative. I see the patient to be very appropriate at this point in time. No other new complaints otherwise. Her cough is dry. She still bronchospastic. 01/22/2023, the patient is in the right direction. She is less bronchospastic and wheezy. I switched him to a combination of Perforomist and Pulmicort neb blotchiness twice a day and him being an albuterol [id number]. She is on Symbicort for now. No new complaints. She is still on oxygen at 2 L nasal cannula.No new labs are available from today. Blood sugar is controlled. Pro- calcitonin level was at 0.1. On 01/23/2023, the patient is being seen for a follow-up. Since yesterday, the patient was diagnosed having Covid 19 and she tested positive. Based on that, the patient was started on IV Solu-Medrol 40 mg every 8 hours. Perforomist and Pulmicort updrafts were also discontinued and the patient was placed back on Symbicort and albuterol HFA. She remains on oxygen at 3 L. Some limited cough and congestion. No other new complaints otherwise for now. 01/24/2023, the patient is clinically feeling slightly improved. Less bronchospastic and wheezy. Still oxygen dependent. She is on IV Solu-Medrol in the blood sugars are slightly elevated. She is worried about elevation of the blood sugar. We are giving her insulin for blood sugar control. Morning blood sugar was up to 65. D-dimer is at 0.7. There was done at 9.9 with a hemoglobin of 8.4 and a platelet count of 330. No other significant events otherwise for now. She is on oxygen at 3 L nasal cannula and her pulse ox is up to 98%. She is still having some cough and congestion. She is to bronchospastic and wheezy. She is afebrile. Objective - Vital Signs Vital signs: Vital Signs Temp 98 F 01/24/23 09:20 Pulse 60 01/24/23 09:20 Resp 20 01/24/23 09:20 BP 153/65 01/24/23 09:20 Pulse Ox 98 01/24/23 09:57 FiO2 2 01/20/23 08:44 Intake & Output 01/23/23 01/24/23 01/24/23 18:59 06:59 18:59 Intake Total 480 Balance 480 Intake: Oral 480 Other: Voiding Method Toilet # Voids 1 3 1 - Exam GENERAL EXAM: Alert, 77-year-old female, on 2-3 L nasal cannula, comfortable in no apparent distress. HEAD: Normocephalic. EYES: Normal reaction of pupils, equal size. NOSE: Clear with pink turbinates. THROAT: No erythema or exudates. NECK: No masses, no JVD. CHEST: No chest wall deformity. LUNGS: Equal air entry with forced end expiratory wheeze on exhalation. CVS: S1 and S2 normal with no audible murmur, regular rhythm. ABDOMEN: No hepatosplenomegaly, normal bowel sounds, no guarding or rigidity. SPINE: No scoliosis or deformity SKIN: No rashes CENTRAL NERVOUS SYSTEM: No focal deficits, tone is normal in all 4 extremities. EXTREMITIES: There is no peripheral edema. No clubbing, no cyanosis. Peripheral pulses are intact. - Labs CBC & Chem 7: 01/24/23 09:34 01/23/23 07:12 Labs: Abnormal Lab Results - Last 24 Hours (Table) 01/23/23 01/23/23 01/23/23 Range/Units 07:12 12:29 12:29 RBC (3.80-5.40) m/uL Hgb (11.4-16.0) gm/dL Hct (34.0-46.0) % Neutrophils # (1.3-7.7) k/uL Lymphocytes # (1.0-4.8) k/uL D-Dimer 0.74 H (<0.60) mg/L FEU Est GFR (CKD-EPI)NonAf 52.8 L (60.0-200.0) Glucose 188 H (70-110) mg/dL POC Glucose (mg/dL) (70-110) mg/dL Total Bilirubin <0.15 L (0.30-1.20) mg/dL C-Reactive Protein 3.60 H (0.00-0.80) mg/dL Total Protein 5.7 L (6.2-8.2) g/dL Albumin 3.4 L (3.8-4.9) g/dL Albumin/Globulin Ratio 1.41 L (1.60-3.17) g/dL 01/23/23 01/23/23 01/24/23 Range/Units 16:15 20:26 06:07 RBC (3.80-5.40) m/uL Hgb (11.4-16.0) gm/dL Hct (34.0-46.0) % Neutrophils # (1.3-7.7) k/uL Lymphocytes # (1.0-4.8) k/uL D-Dimer (<0.60) mg/L FEU Est GFR (CKD-EPI)NonAf (60.0-200.0) Glucose (70-110) mg/dL POC Glucose (mg/dL) 303 H 307 H 223 H (70-110) mg/dL Total Bilirubin (0.30-1.20) mg/dL C-Reactive Protein (0.00-0.80) mg/dL Total Protein (6.2-8.2) g/dL Albumin (3.8-4.9) g/dL Albumin/Globulin Ratio (1.60-3.17) g/dL 01/24/23 01/24/23 Range/Units 09:34 11:26 RBC 2.67 L (3.80-5.40) m/uL Hgb 8.4 L (11.4-16.0) gm/dL Hct 26.1 L (34.0-46.0) % Neutrophils # 8.3 H (1.3-7.7) k/uL Lymphocytes # 0.9 L (1.0-4.8) k/uL D-Dimer (<0.60) mg/L FEU Est GFR (CKD-EPI)NonAf (60.0-200.0) Glucose (70-110) mg/dL POC Glucose (mg/dL) 265 H (70-110) mg/dL Total Bilirubin (0.30-1.20) mg/dL C-Reactive Protein (0.00-0.80) mg/dL Total Protein (6.2-8.2) g/dL Albumin (3.8-4.9) g/dL Albumin/Globulin Ratio (1.60-3.17) g/dL Assessment and Plan Plan: Acute Covid 19 infection, exact timing of infection is not clear. The patient tested positive and the patient is currently on IV Solu-Medrol , along with a component of an acute hypoxic respiratory failure, improving clinically COPD exacerbation with secondary shortness of breath, secondary to above Acute on chronic hypoxic respiratory failure and oxygen requirements are ranging between 2 and 3 L/m nasal cannula. Generalized weakness suspect secondary to diarrhea and dehydration Acute kidney injury secondary to above, improving and the creatinine is down to 1.1 Dysphagia of unclear etiology Anemia of unclear etiology, current hemoglobin 8.4 kilos no Hypothyroidism with current TSH less than 0.015, dose adjusted Chronic obstructive pulmonary disease, currently inactive in stable Former smoker Coronary disease with previous stent placement and previous bypass grafting Hypertension Hyperlipidemia Diabetes mellitus Obstructive sleep apnea, intolerant to CPAP therapy Plan: Keep oxygen at 3 L/m nasal cannula and gradually weaned off Inflammatory markers are not elevated Continue IV Solu-Medrol Blood sugar management is per medicine Wean FiO2 Increase mobility We will follow
--- NOTE | 2023-01-24 16:09 | P.PN ---
Subjective Patient is seen for follow-up for acute kidney injury. Renal function has improved with IV hydration and creatinine is down to 1.1 from 1.5 on 01/16/2023 Patient has been complaining of shortness of breath Switched to IV Bumex yesterday Shortness of breath has improved Patient tested positive for COVID-19 PCR. She is maintained on steroids. Overall feeling slightly better. Patient remains on IV Bumex every 12 hours. Urine output not accurately charted. Labs pending from today. Cr 1.0 yesterday. Objective - Vital Signs Vital signs: Vital Signs Temp 98.3 F 01/24/23 12:54 Pulse 99 01/24/23 12:54 Resp 16 01/24/23 12:54 BP 154/62 01/24/23 12:54 Pulse Ox 99 01/24/23 12:54 FiO2 2 01/20/23 08:44 Intake & Output 01/23/23 01/24/23 01/24/23 18:59 06:59 18:59 Intake Total 480 240 Balance 480 240 Intake: Oral 480 240 Other: Voiding Method Toilet # Voids 1 3 1 - Exam Patient is awake, comfortable, no acute distress Examination of the heart S1 and S2 Examination of the lungs bilateral breath sounds are heard Abdomen is soft nontender Examination of the lower extremities shows no significant edema CLIENT SUPPORT REPRESENTATIVE exam grossly intact - Labs CBC & Chem 7: 01/24/23 09:34 01/23/23 07:12 Labs: Abnormal Lab Results - Last 24 Hours (Table) 01/23/23 01/23/23 01/23/23 Range/Units 12:29 16:15 20:26 RBC (3.80-5.40) m/uL Hgb (11.4-16.0) gm/dL Hct (34.0-46.0) % Neutrophils # (1.3-7.7) k/uL Lymphocytes # (1.0-4.8) k/uL POC Glucose (mg/dL) 303 H 307 H (70-110) mg/dL C-Reactive Protein 3.60 H (0.00-0.80) mg/dL 01/24/23 01/24/23 01/24/23 Range/Units 06:07 09:34 11:26 RBC 2.67 L (3.80-5.40) m/uL Hgb 8.4 L (11.4-16.0) gm/dL Hct 26.1 L (34.0-46.0) % Neutrophils # 8.3 H (1.3-7.7) k/uL Lymphocytes # 0.9 L (1.0-4.8) k/uL POC Glucose (mg/dL) 223 H 265 H (70-110) mg/dL C-Reactive Protein (0.00-0.80) mg/dL Assessment and Plan Assessment: 1. Acute kidney injury mostly prerenal secondary to hypovolemia and diuresis. Improved with hydration but IVF discontinued to volume overload. Creatinine 1.51 on admission, decreased to 1.0. UA benign. Maintained on loop diuretics now 2. Chronic kidney disease stage II with baseline creatinine near 1 secondary to nephrosclerosis. 3. Lactic acidosis secondary to hypovolemia/hypotension. 4. Diabetes mellitus 5. Volume overload, improving 6. COVID-19 infection possibly pneumonia as well 7. Anemia with iron deficiency status post IV iron Plan: Continue with current dose of IV Bumex
[2023-01-24 17:19] LABS: Glucose,Whole Blood 225 mg/dL (70-110)
[2023-01-24 20:02] LABS: ALT 38 U/L (8-44); AST 24 U/L (13-35); African American GFR (CKD) 50.8 (60.0-200.0); Albumin 3.6 g/dL (3.8-4.9); Albumin/Globulin Ratio 1.44 (1.60-3.17); Alkaline Phosphatase 60 U/L (41-126); BUN/Creat Ratio 21.25 Ratio (12.00-20.00); Blood Urea Nitrogen 25.5 mg/dL (9.0-27.0); Calcium 9.4 mg/dL (8.7-10.3); Chloride 106 mmol/L (96-109); Globulin 2.5 g/dL (1.6-3.3); Glucose 136 mg/dL (70-110); Non-African American GFR(CKD) 43.9 (60.0-200.0); Potassium 4.4 mmol/L (3.5-5.5); Sodium 145 mmol/L (135-145); Total Bilirubin <0.15 mg/dL (0.30-1.20); Total Protein 6.1 g/dL (6.2-8.2)
[2023-01-24 20:15] LABS: Glucose,Whole Blood 303 mg/dL (70-110)
[2023-01-24] MEDS: ATORVASTATIN 80 MG TAB PO SCH (21:23)
[2023-01-24] MEDS: LORazepam 1 MG TAB PO SCH (21:23)
[2023-01-25] MEDS: methylPREDNISolone SOD SUCCI 40 MG/ML 1 ML VIAL IV SCH ×3 (01:07→16:23)
[2023-01-25 05:47] LABS: Glucose,Whole Blood 204 mg/dL (70-110)
[2023-01-25] MEDS: LEVOTHYROXINE 50 MCG TAB PO SCH (06:31)
[2023-01-25] MEDS: INSULIN ASPART (NovoLOG) 100 UNIT/ML VIAL SQ SCH ×4 (06:31→21:17)
[2023-01-25] MEDS: PANTOPRAZOLE 40 MG TABLET PO SCH (06:31)
[2023-01-25] MEDS: SYMBICORT 80-4.5 MCG INHALER INHALATION SCH ×2 (07:38→19:20)
[2023-01-25] MEDS: ALBUTEROL HFA INHALER INHALATION PRN ×2 (07:38→19:20)
[2023-01-25] MEDS: ENOXAPARIN 40 MG/0.4 ML SYRINGE SQ SCH (09:00)
[2023-01-25] MEDS: METOPROLOL TARTRATE 50 MG TAB PO SCH ×2 (09:01→21:17)
[2023-01-25] MEDS: ASCORBIC ACID 500 MG TAB PO SCH (09:01)
[2023-01-25] MEDS: CLOPIDOGREL 75 MG TAB PO SCH (09:01)
[2023-01-25] MEDS: DICYCLOMINE 20 MG TAB PO SCH ×4 (09:01→21:17)
[2023-01-25] MEDS: LORATADINE 10 MG TAB PO SCH (09:01)
[2023-01-25] MEDS: DULoxetine HCL 60 MG CAPSULE.DR PO SCH (09:01)
[2023-01-25] MEDS: LORazepam 0.5 MG TAB PO SCH (09:01)
[2023-01-25] MEDS: MULTIVITAMINS, THERA 1 EACH TAB PO SCH (09:01)
[2023-01-25] MEDS: BUMETANIDE 0.25 MG/ML 10 ML VIAL IV SCH (09:01)
[2023-01-25] MEDS: RANOLAZINE 500 MG TAB.ER.12H PO SCH ×2 (09:02→21:17)
[2023-01-25] MEDS: NITROGLYCERIN 0.4MG/HR PATCH TRANSDERM SCH (09:02)
--- NOTE | 2023-01-25 10:58 | P.PN ---
Subjective Progress Note Date: 01/25/23 This is a pleasant 77 showed female patient who follows with Dr. van as her primary care provider. She has a history of coronary artery disease with previous coronary artery bypass grafting, previous stent placement, diabetes mellitus, hypothyroidism, hypertension, hyperlipidemia, chronic obstructive pulmonary disease from 30 years of smoking. She is maintained on Symbicort and albuterol along with oxygen at nighttime. She follows with a tanker driver out of the [facility] system. She presented here to the emergency room last evening with the complaint of generalized weakness and fatigue that have been progressing over the past week. She feels exhausted. She is dyspneic on exertion. Some abdominal pain and cramping with intermittent diarrhea. Chest x- ray revealed some mild atelectasis of the left base. No overt heart failure. Mild chronic elevation of the right hemidiaphragm. White count 7.8. Hemoglobin 9.7. Platelets 342. D-dimer 0.39. Sodium 136. Potassium 4.6. Bicarb 26. BUN 36. Creatinine 1.51. Glucose 142. TSH less than 0.015. Free T4 1 0.14. Urinalysis clean. Ultrasound of the kidneys/renal and bladder revealed no evidence of hydronephrosis. No nephrolithiasis. No solid masses identified. The urinary bladder is anechoic. She is seen today in consultation on the regular medical floor. Currently laying comfortable in bed. Awake and alert in no acute distress. Maintaining good O2 saturations in the 90s on 2 L/m per nasal cannula. Normal saline at 75 mls per hour. She is on Symbicort and albuterol. Empiric antibiotics in the form of doxycycline. The patient is seen today 01/18/2023 in follow-up on the regular medical floor. She is currently resting comfortably in bed. Awake and alert in no acute distress. Less weak today compared to yesterday. Still some fatigue on minimal exertion. Maintaining O2 saturations in the 90s on 2 L/m per nasal cannula. She says some mild wheezing. Normal saline at 75 ML's per hour. Sodium 143. Potassium 4.4. Bicarb 26. BUN 25. Creatinine 1.1. Glucose 109. She is continued on Symbicort, albuterol, empiric antibiotics in the form of doxycycline. The patient is seen today 01/19/2023 in follow-up on the regular medical floor. She is currently resting comfortably in bed. Still with some complaints of shortness of breath and wheezing. Maintaining good O2 saturations in the high 90s on 2 L/m per nasal cannula. She is continued on Symbicort and albuterol. Antibiotics in the form of doxycycline. Chest x-ray reveals evidence of atelectasis of the lung bases. Blood sugar 115. On today's evaluation of the 2022, the patient still having difficulties with shortness of breath, bronchospasm and the patient is also on oxygen between 2 and 3 L/m nasal cannula. While on 2 L, pulse ox dropped down to 86% and had to bring it up to 3 L. The patient is otherwise doing well. No specific complaints for now. I wanted to put her on IV Solu-Medrol. Nevertheless, the patient is diabetic and she declined as she is aware that steroids will make her sugars elevated and she will not tolerate steroids because of other side effects including increased agitation or restlessness. Based on that, no systemic steroids and the provided. She is on Symbicort as maintenance 2 puffs twice a day, and return about treatments [id number] and the rest of the home medications and resume. She is receiving empiric antibiotic coverage with doxycycline. She is known to have CAD, previous bypass surgery, previous stenting, and as mentioned she is diabetic and she has hypertension and h yperlipidemia and hypothyroidism. Her tanker driver is Dr. Scott out of [facility]. 01/21/2023, the patient states that she is essentially unchanged. Her respiratory status is looking the same as yesterday. She remains on Symbicort. She is on nebulized treatments [id number]. She is on no steroids for now. She did have a bout of confusion according to the nursing staff and that she was given a CAT scan of the brain that turned out to be negative. I see the patient to be very appropriate at this point in time. No other new complaints otherwise. Her cough is dry. She still bronchospastic. 01/22/2023, the patient is in the right direction. She is less bronchospastic and wheezy. I switched him to a combination of Perforomist and Pulmicort neb blotchiness twice a day and him being an albuterol [id number]. She is on Symbicort for now. No new complaints. She is still on oxygen at 2 L nasal cannula.No new labs are available from today. Blood sugar is controlled. Pro- calcitonin level was at 0.1. On 01/23/2023, the patient is being seen for a follow-up. Since yesterday, the patient was diagnosed having Covid 19 and she tested positive. Based on that, the patient was started on IV Solu-Medrol 40 mg every 8 hours. Perforomist and Pulmicort updrafts were also discontinued and the patient was placed back on Symbicort and albuterol HFA. She remains on oxygen at 3 L. Some limited cough and congestion. No other new complaints otherwise for now. 01/24/2023, the patient is clinically feeling slightly improved. Less bronchospastic and wheezy. Still oxygen dependent. She is on IV Solu-Medrol in the blood sugars are slightly elevated. She is worried about elevation of the blood sugar. We are giving her insulin for blood sugar control. Morning blood sugar was up to 65. D-dimer is at 0.7. There was done at 9.9 with a hemoglobin of 8.4 and a platelet count of 330. No other significant events otherwise for now. She is on oxygen at 3 L nasal cannula and her pulse ox is up to 98%. She is still having some cough and congestion. She is to bronchospastic and wheezy. She is afebrile. Are 2022, the patient states that she is still the same. I agreed to her judgment as the patient is still having a congested cough and a wheeze and some degree of shortness of breath especially with she ambulates and the patient is still on oxygen at 3 L nasal cannula. She is doing well otherwise for no new complaints. As mentioned earlier, she has an underlying COPD exacerbation and Covid 19 infection. No nausea or emesis. No altered mentation. Objective - Vital Signs Vital signs: Vital Signs Temp 97.7 F 01/25/23 07:00 Pulse 67 01/25/23 07:00 Resp 20 01/25/23 07:00 BP 162/77 01/25/23 07:00 Pulse Ox 96 01/25/23 07:00 FiO2 2 01/20/23 08:44 Intake & Output 01/24/23 01/25/23 01/25/23 18:59 06:59 18:59 Intake Total 480 Balance 480 Intake: Oral 480 Other: # Voids 2 2 - Exam GENERAL EXAM: Alert, 77-year-old female, on 2-3 L nasal cannula, comfortable in no apparent distress. HEAD: Normocephalic. EYES: Normal reaction of pupils, equal size. NOSE: Clear with pink turbinates. THROAT: No erythema or exudates. NECK: No masses, no JVD. CHEST: No chest wall deformity. LUNGS: Equal air entry with forced end expiratory wheeze on exhalation. CVS: S1 and S2 normal with no audible murmur, regular rhythm. ABDOMEN: No hepatosplenomegaly, normal bowel sounds, no guarding or rigidity. SPINE: No scoliosis or deformity SKIN: No rashes CENTRAL NERVOUS SYSTEM: No focal deficits, tone is normal in all 4 extremities. EXTREMITIES: There is no peripheral edema. No clubbing, no cyanosis. Peripheral pulses are intact. - Labs CBC & Chem 7: 01/24/23 09:34 01/24/23 09:34 Labs: Abnormal Lab Results - Last 24 Hours (Table) 01/24/23 01/24/23 01/24/23 Range/Units 09:34 11:26 17:11 Carbon Dioxide 19.0 L (20.0-27.5) mmol/L Anion Gap 20.00 H (10.00-18.00) mmol/L Est GFR (CKD-EPI)AfAm 50.8 L (60.0-200.0) Est GFR (CKD-EPI)NonAf 43.9 L (60.0-200.0) BUN/Creatinine Ratio 21.25 H (12.00-20.00) Ratio Glucose 136 H (70-110) mg/dL POC Glucose (mg/dL) 265 H 225 H (70-110) mg/dL Total Bilirubin <0.15 L (0.30-1.20) mg/dL Total Protein 6.1 L (6.2-8.2) g/dL Albumin 3.6 L (3.8-4.9) g/dL Albumin/Globulin Ratio 1.44 L (1.60-3.17) g/dL 01/24/23 01/25/23 Range/Units 20:14 05:46 Carbon Dioxide (20.0-27.5) mmol/L Anion Gap (10.00-18.00) mmol/L Est GFR (CKD-EPI)AfAm (60.0-200.0) Est GFR (CKD-EPI)NonAf (60.0-200.0) BUN/Creatinine Ratio (12.00-20.00) Ratio Glucose (70-110) mg/dL POC Glucose (mg/dL) 303 H 204 H (70-110) mg/dL Total Bilirubin (0.30-1.20) mg/dL Total Protein (6.2-8.2) g/dL Albumin (3.8-4.9) g/dL Albumin/Globulin Ratio (1.60-3.17) g/dL Assessment and Plan Plan: Acute Covid 19 infection, exact timing of infection is not clear. The patient tested positive and the patient is currently on IV Solu-Medrol , along with a component of an acute hypoxic respiratory failure, improving clinically. The patient is currently on IV Solu-Medrol. COPD exacerbation with secondary shortness of breath, secondary to above Acute on chronic hypoxic respiratory failure and oxygen requirements are ranging between 2 and 3 L/m nasal cannula. Generalized weakness suspect secondary to diarrhea and dehydration Acute kidney injury secondary to above, improving and the creatinine is down to 1.1 Dysphagia of unclear etiology Anemia of unclear etiology, current hemoglobin 8.4 kilos no Hypothyroidism with current TSH less than 0.015, dose adjusted Chronic obstructive pulmonary disease, currently inactive in stable Former smoker Coronary disease with previous stent placement and previous bypass grafting Hypertension Hyperlipidemia Diabetes mellitus Obstructive sleep apnea, intolerant to CPAP therapy Plan: Is very much possible that the patient may ultimately need home O2. Her recovery is going to be slow and the rest of the recovery should be done at home. I think she is going to need a course of steroids with Decadron 6 mg a daily basis for the next 10 days and this should be given to her the time of discharge. Oxygen also needs to be arranged and I think she does have oxygen. Meanwhile, during her hospital stay, I would suggest keeping the IV Solu-Medrol. Continue Symbicort. Continue albuterol HFA. Will follow.
[2023-01-25 11:13] LABS: Basophils # (A) 0.01 X 10*3/uL (0.00-0.10); Basophils % (A) 0.1 %; Eosinophils # (A) 0 X 10*3/uL (0.04-0.35); Eosinophils % (A) 0 %; HCT 26.9 % (37.2-46.3); HGB 8.1 g/dL (12.0-15.0); Immature Grans, Automated 1.1 %; Lymphocytes # (A) 0.93 X 10*3/uL (0.90-5.00); Lymphocytes % (A) 7.8 %; MCH 30.7 pg (27.0-32.0); MCHC 30.1 g/dL (32.0-37.0); MCV 101.9 fL (80.0-97.0); Mean Platelet Volume 9.8 fL (9.5-12.2); Monocytes # (A) 0.58 X 10*3/uL (0.20-1.00); Monocytes % (A) 4.8 %; NRBC Per 100 WBC 0.2 /100 WBCS (0.0-0.0); Neutrophils # (A) 10.35 X 10*3/uL (1.80-7.70); Neutrophils % (A) 86.2 %; Platelet Count 362 X 10*3/uL (140-440); RBC 2.64 X 10*6/uL (4.10-5.20); RDW 13.2 % (11.5-14.5)
[2023-01-25 11:29] LABS: ALT 46 U/L (8-44); AST 27 U/L (13-35); African American GFR (CKD) 59.7 (60.0-200.0); Albumin 3.4 g/dL (3.8-4.9); Albumin/Globulin Ratio 1.45 (1.60-3.17); Alkaline Phosphatase 66 U/L (41-126); BUN/Creat Ratio 26.38 Ratio (12.00-20.00); Blood Urea Nitrogen 27.7 mg/dL (9.0-27.0); Calcium 9.3 mg/dL (8.7-10.3); Carbon Dioxide 25.3 mmol/L (20.0-27.5); Chloride 106 mmol/L (96-109); Globulin 2.3 g/dL (1.6-3.3); Glucose 209 mg/dL (70-110); Non-African American GFR(CKD) 51.6 (60.0-200.0); Sodium 143 mmol/L (135-145); Total Bilirubin <0.15 mg/dL (0.30-1.20); Total Protein 5.7 g/dL (6.2-8.2)
[2023-01-25 11:30] LABS: Glucose,Whole Blood 271 mg/dL (70-110)
[2023-01-25] MEDS ORDERED: BENZOCAINE/MENTHOL LOZENG 1 EACH LOZENGE MUCOUS MEM PRN (13:00)
--- NOTE | 2023-01-25 13:05 | P.PN ---
Subjective Progress Note Date: 01/25/23 Hodan Jacobs, is a 77 -year-old female who presented to [facility] emergency room with a chief complaint of generalized weakness She was evaluated in the emergency room vital examination on presentation revealed a temperature of 98.1 pulse 82 respiration 24 blood pressure 147/70 pulse ox 96% on room air Laboratory data revealed a white blood count of 7.8 hemoglobin 9.7 platelet count 342 sodium 136 potassium 4.6 chloride 100 CO2 26 BUN 36 creatinine 1.51 creatinine was 1.3 on 01/02/2023 lactic acid was elevated at 2.6 troponin normal at 0.012 TSH was low at 0.015 urine analysis was positive for leukocyte esterase Testing in the emergency room revealed chest x-ray done in the emergency room revealed mild atelectasis in the left lung and chronic elevation in the right diaphragm, EKG revealed sinus rhythm with 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 Patient was admitted to medical floor for further evaluation and treatment Past medical history is significant for history of hypertension, history of hypothyroidism, history of hyperlipidemia, history of coronary artery disease, history of [id number]-jaeotjsvx diabetes mellitus, history of obstructive sleep apnea. On review of systems patient is alert and oriented 3 in no apparent distress there is no fever or chills no headache or dizziness no chest pain , she is complaining of shortness of breath no cough no nausea or vomiting no abdominal pain no diarrhea and no urinary symptoms. 01/18/2023 patient was seen and examined on the medical she is alert and oriented 3 in no apparent distress she is still complaining of severe generalized weakness and complaining of shortness of breath with activity, patient has evidence of urinary tract infection, evidence of iron deficiency anemia, acute on chronic renal failure, and known history of coronary artery disease, echocardiogram is still pending, physical therapy occupational therapy consult, IV iron, labs today are still pending, will follow closely. on 01/19/2023 patient is alert and oriented 3. Patient complaining of incre ased shortness of breath and wheezing. Discussed case with nephrology services will order 1 time dose of IV Bumex and DC IV fluids. Chest x-ray also ordered. Patient denies chest pain. Patient denies nausea vomiting or diarrhea. Patient denies any urinary burning or frequency On 01/20/2023 patient was seen and examined on the medical floor she is alert and oriented 3 in no apparent distress she is still complaining of shortness of breath and wheezing patient also has mild lower extremity edema at this time patient has evidence of fluid overload Bumex 2 mg by mouth twice a day was resumed. Nephrology and pulmonary are following we will continue to follow closely. On 01/21/2023 patient was seen and examined on the medical floor she is alert and oriented 3 in no apparent distress she is still complaining of shortness of breath, yesterday patient had episodes of confusion and hallucination, computed tomography scan of the brain was ordered, and neurology consultation was requested, today patient was reevaluated by nephrology, Bumex was switched to IV due to continued evidence of fluid overload, otherwise patient was continued on the same medications, patient seems to be stable at this time will continue to follow closely. ON 01/22/2023 patient is alert and oriented 3. Patient currently maintained on IV Bumex. Patient reports slight improvement with shortness of breath. Patient denies chest pain. Patient denies nausea vomiting or diarrhea. Patient denies any urinary burning or frequency. On 01/23/2023 patient was seen and examined on the medical floor she is alert and oriented 3 in no apparent distress she is complaining of cough, she stated that her shortness of breath has improved, yesterday patient tested positive for COVID-19, she was agreeable to start IV Solu-Medrol, she was also started on insulin sliding scale, otherwise she denies any complaints there is no fever or chills no headache or dizziness no chest pain no nausea or vomiting no abdominal pain no diarrhea and no urinary symptoms On 01/24/2023 patient is alert and oriented 3. Patient reports some improvement with shortness of breath. Patient remains on IV steroids. Temp 97.8, pulse rate 69, respiratory rate 24, blood pressure 150/63 with pulse ox 98% on 3 L On 01/25/2023 patient was seen and examined on the medical floor she is alert and oriented 3 in no apparent distress she reports some improvement in her cough and shortness of breath and wheezing otherwise she denies any complaints there is no fever or chills no headache or dizziness no chest pain no nausea or vomiting no abdominal pain no diarrhea no blood in the stools no burning with urination no frequency or urgency and no hematuria. Today I will switch Bumex back to 2 mg by mouth twice daily, will add the Mucinex and Cepacol lozenges, patient is improving gradually. Objective - Vital Signs Vital signs: Vital Signs Temp 97.7 F 01/25/23 07:00 Pulse 67 01/25/23 07:00 Resp 20 01/25/23 07:00 BP 162/77 01/25/23 07:00 Pulse Ox 96 01/25/23 07:00 FiO2 2 01/20/23 08:44 Intake & Output 01/24/23 01/25/23 01/25/23 18:59 06:59 18:59 Intake Total 480 Balance 480 Intake: Oral 480 Other: # Voids 2 2 - Exam In general patient is alert and oriented x 3 in no distress HEENT head normocephalic and atraumatic Neck is supple no JVD no goiter no lymphadenopathy no carotid bruit Chest examination is clear to auscultation no crackles no wheezing Cardiac exam reveals regular heart sounds S1 and S2 no gallops no murmurs Abdomen is soft nontender no organomegaly with normal bowel sounds Extremity exam reveals no edema no cyanosis or clubbing Neurological examination reveals no gross focal deficits - Labs CBC & Chem 7: 01/25/23 06:48 01/25/23 06:48 Labs: Abnormal Lab Results - Last 24 Hours (Table) 01/24/23 01/24/23 01/24/23 Range/Units 09:34 09:34 11:26 RBC 2.67 L (3.80-5.40) m/uL Hgb 8.4 L (11.4-16.0) gm/dL Hct 26.1 L (34.0-46.0) % Neutrophils # 8.3 H (1.3-7.7) k/uL Lymphocytes # 0.9 L (1.0-4.8) k/uL Carbon Dioxide 19.0 L (20.0-27.5) mmol/L Anion Gap 20.00 H (10.00-18.00) mmol/L Est GFR (CKD-EPI)AfAm 50.8 L (60.0-200.0) Est GFR (CKD-EPI)NonAf 43.9 L (60.0-200.0) BUN/Creatinine Ratio 21.25 H (12.00-20.00) Ratio Glucose 136 H (70-110) mg/dL POC Glucose (mg/dL) 265 H (70-110) mg/dL Total Bilirubin <0.15 L (0.30-1.20) mg/dL Total Protein 6.1 L (6.2-8.2) g/dL Albumin 3.6 L (3.8-4.9) g/dL Albumin/Globulin Ratio 1.44 L (1.60-3.17) g/dL 01/24/23 01/24/23 01/25/23 Range/Units 17:11 20:14 05:46 RBC (3.80-5.40) m/uL Hgb (11.4-16.0) gm/dL Hct (34.0-46.0) % Neutrophils # (1.3-7.7) k/uL Lymphocytes # (1.0-4.8) k/uL Carbon Dioxide (20.0-27.5) mmol/L Anion Gap (10.00-18.00) mmol/L Est GFR (CKD-EPI)AfAm (60.0-200.0) Est GFR (CKD-EPI)NonAf (60.0-200.0) BUN/Creatinine Ratio (12.00-20.00) Ratio Glucose (70-110) mg/dL POC Glucose (mg/dL) 225 H 303 H 204 H (70-110) mg/dL Total Bilirubin (0.30-1.20) mg/dL Total Protein (6.2-8.2) g/dL Albumin (3.8-4.9) g/dL Albumin/Globulin Ratio (1.60-3.17) g/dL Assessment and Plan Plan: Generalized weakness Evidence of urinary tract infection, started on oral doxycycline Acute kidney injury with elevated BUN and creatinine, blood pressure medications are being adjusted by nephrology, patient is maintained on IV fluid COVID-19 infection. Patient maintained on IV steroids Difficulty swallowing with feeling food stuck in her throat, gastroenterology consultation requested, if not available patient will follow with gastroenterology as outpatient Elevated lactic acid Anemia on presentation, with evidence of iron deficiency, patient unable to tolerate oral iron, IV Venofer was ordered Known history of hypothyroidism maintained on Synthroid was decreased TSH at this time Underlying history of hypertension Underlying history of hyperlipidemia Underlying history of qdh-suulegu-pwlzjquos diabetes mellitus Underlying history of COPD, stable patient was evaluated and cleared by pulmonary Underlying history of obstructive sleep apnea Underlying history of coronary artery disease Episode of confusion. Neurology following. 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 Per neurology services recommending MRI of brain with and without as outpatient for further evaluation At this time patient is admitted to medical floor Home medications reviewed and reordered, at this time I will hold metformin, and decreased dose of Synthroid to 50 g daily Will monitor closely
--- NOTE | 2023-01-25 15:39 | P.PN ---
Subjective Progress Note Date: 01/25/23 Follow-up for acute kidney injury. Objective - Vital Signs Vital signs: Vital Signs Temp 98.1 F 01/25/23 13:47 Pulse 72 01/25/23 13:47 Resp 18 01/25/23 13:47 BP 148/73 01/25/23 13:47 Pulse Ox 94 L 01/25/23 13:47 FiO2 2 01/20/23 08:44 Intake & Output 01/24/23 01/25/23 01/25/23 18:59 06:59 18:59 Intake Total 480 Balance 480 Intake: Oral 480 Other: # Voids 2 2 - Exam No acute distress S1-S2 heard Decreased breath sounds Trace edema - Labs CBC & Chem 7: 01/25/23 06:48 01/25/23 06:48 Labs: Abnormal Lab Results - Last 24 Hours (Table) 01/24/23 01/24/23 01/24/23 Range/Units 09:34 17:11 20:14 WBC (4.50-10.00) X 10*3/uL RBC (4.10-5.20) X 10*6/uL Hgb (12.0-15.0) g/dL Hct (37.2-46.3) % MCV (80.0-97.0) fL MCHC (32.0-37.0) g/dL Absolute Nucleated RBC (0.00-0.00) X 10*3/uL Immature Gran # (0.00-0.04) X 10*3/uL Neutrophils # (1.80-7.70) X 10*3/uL Eosinophils # (0.04-0.35) X 10*3/uL NRBC/100 WBC Diff (0.0-0.0) /100 WBCS Carbon Dioxide 19.0 L (20.0-27.5) mmol/L Anion Gap 20.00 H (10.00-18.00) mmol/L BUN (9.0-27.0) mg/dL Est GFR (CKD-EPI)AfAm 50.8 L (60.0-200.0) Est GFR (CKD-EPI)NonAf 43.9 L (60.0-200.0) BUN/Creatinine Ratio 21.25 H (12.00-20.00) Ratio Glucose 136 H (70-110) mg/dL POC Glucose (mg/dL) 225 H 303 H (70-110) mg/dL Total Bilirubin <0.15 L (0.30-1.20) mg/dL ALT (8-44) U/L Total Protein 6.1 L (6.2-8.2) g/dL Albumin 3.6 L (3.8-4.9) g/dL Albumin/Globulin Ratio 1.44 L (1.60-3.17) g/dL 01/25/23 01/25/23 01/25/23 Range/Units 05:46 06:48 06:48 WBC 12.00 H (4.50-10.00) X 10*3/uL RBC 2.64 L (4.10-5.20) X 10*6/uL Hgb 8.1 L (12.0-15.0) g/dL Hct 26.9 L (37.2-46.3) % MCV 101.9 H (80.0-97.0) fL MCHC 30.1 L (32.0-37.0) g/dL Absolute Nucleated RBC 0.02 H (0.00-0.00) X 10*3/uL Immature Gran # 0.13 H (0.00-0.04) X 10*3/uL Neutrophils # 10.35 H (1.80-7.70) X 10*3/uL Eosinophils # 0 L (0.04-0.35) X 10*3/uL NRBC/100 WBC Diff 0.2 H (0.0-0.0) /100 WBCS Carbon Dioxide (20.0-27.5) mmol/L Anion Gap (10.00-18.00) mmol/L BUN 27.7 H (9.0-27.0) mg/dL Est GFR (CKD-EPI)AfAm 59.7 L (60.0-200.0) Est GFR (CKD-EPI)NonAf 51.6 L (60.0-200.0) BUN/Creatinine Ratio 26.38 H (12.00-20.00) Ratio Glucose 209 H (70-110) mg/dL POC Glucose (mg/dL) 204 H (70-110) mg/dL Total Bilirubin <0.15 L (0.30-1.20) mg/dL ALT 46 H (8-44) U/L Total Protein 5.7 L (6.2-8.2) g/dL Albumin 3.4 L (3.8-4.9) g/dL Albumin/Globulin Ratio 1.45 L (1.60-3.17) g/dL 01/25/23 Range/Units 11:28 WBC (4.50-10.00) X 10*3/uL RBC (4.10-5.20) X 10*6/uL Hgb (12.0-15.0) g/dL Hct (37.2-46.3) % MCV (80.0-97.0) fL MCHC (32.0-37.0) g/dL Absolute Nucleated RBC (0.00-0.00) X 10*3/uL Immature Gran # (0.00-0.04) X 10*3/uL Neutrophils # (1.80-7.70) X 10*3/uL Eosinophils # (0.04-0.35) X 10*3/uL NRBC/100 WBC Diff (0.0-0.0) /100 WBCS Carbon Dioxide (20.0-27.5) mmol/L Anion Gap (10.00-18.00) mmol/L BUN (9.0-27.0) mg/dL Est GFR (CKD-EPI)AfAm (60.0-200.0) Est GFR (CKD-EPI)NonAf (60.0-200.0) BUN/Creatinine Ratio (12.00-20.00) Ratio Glucose (70-110) mg/dL POC Glucose (mg/dL) 271 H (70-110) mg/dL Total Bilirubin (0.30-1.20) mg/dL ALT (8-44) U/L Total Protein (6.2-8.2) g/dL Albumin (3.8-4.9) g/dL Albumin/Globulin Ratio (1.60-3.17) g/dL Assessment and Plan Assessment: #1 acute kidney injury COVID-19 ATN #2 chronic kidney disease stage II with a baseline creatinine of 1.0 MG per DL #3 lactic acidosis resolved #4 volume overload improving #5 Covid 19 infection Plan: #1 currently on Bumex continue, change to oral by the primary team. #2 renal function stable
[2023-01-25 16:26] LABS: Glucose,Whole Blood 373 mg/dL (70-110)
[2023-01-25] MEDS: BUMETANIDE 1 MG TAB PO SCH (16:27)
[2023-01-25 20:44] LABS: Glucose,Whole Blood 464 mg/dL (70-110)
[2023-01-25] MEDS: guaiFENesin 600 MG TABLET.ER PO SCH (21:17)
[2023-01-25] MEDS: LORazepam 1 MG TAB PO SCH (21:17)
[2023-01-25] MEDS: ATORVASTATIN 80 MG TAB PO SCH (21:17)
[2023-01-26] MEDS: methylPREDNISolone SOD SUCCI 40 MG/ML 1 ML VIAL IV SCH ×3 (00:03→17:10)
[2023-01-26 06:11] LABS: Glucose,Whole Blood 225 mg/dL (70-110)
[2023-01-26] MEDS: LEVOTHYROXINE 50 MCG TAB PO SCH (06:19)
[2023-01-26] MEDS: INSULIN ASPART (NovoLOG) 100 UNIT/ML VIAL SQ SCH ×4 (06:19→21:31)
[2023-01-26] MEDS: PANTOPRAZOLE 40 MG TABLET PO SCH (06:19)
[2023-01-26] MEDS: BUMETANIDE 1 MG TAB PO SCH ×2 (09:38→17:41)
[2023-01-26] MEDS: METOPROLOL TARTRATE 50 MG TAB PO SCH ×2 (09:38→21:30)
[2023-01-26] MEDS: RANOLAZINE 500 MG TAB.ER.12H PO SCH ×2 (09:38→21:30)
[2023-01-26] MEDS: guaiFENesin 600 MG TABLET.ER PO SCH ×2 (09:38→21:30)
[2023-01-26] MEDS: ENOXAPARIN 40 MG/0.4 ML SYRINGE SQ SCH (09:38)
[2023-01-26] MEDS: DULoxetine HCL 60 MG CAPSULE.DR PO SCH (09:39)
[2023-01-26] MEDS: LORATADINE 10 MG TAB PO SCH (09:39)
[2023-01-26] MEDS: CLOPIDOGREL 75 MG TAB PO SCH (09:39)
[2023-01-26] MEDS: NITROGLYCERIN 0.4MG/HR PATCH TRANSDERM SCH (09:39)
[2023-01-26] MEDS: LORazepam 0.5 MG TAB PO SCH (09:39)
[2023-01-26] MEDS: ASCORBIC ACID 500 MG TAB PO SCH (09:39)
[2023-01-26] MEDS: DICYCLOMINE 20 MG TAB PO SCH ×4 (09:39→21:30)
[2023-01-26] MEDS: MULTIVITAMINS, THERA 1 EACH TAB PO SCH (09:39)
[2023-01-26] MEDS: ALBUTEROL HFA INHALER INHALATION PRN ×2 (09:57→19:41)
[2023-01-26] MEDS: SYMBICORT 80-4.5 MCG INHALER INHALATION SCH ×2 (09:57→19:40)
--- NOTE | 2023-01-26 10:37 | P.PN ---
Subjective Progress Note Date: 01/26/23 Hodan Jacobs, is a 77 -year-old female who presented to [facility] emergency room with a chief complaint of generalized weakness She was evaluated in the emergency room vital examination on presentation revealed a temperature of 98.1 pulse 82 respiration 24 blood pressure 147/70 pulse ox 96% on room air Laboratory data revealed a white blood count of 7.8 hemoglobin 9.7 platelet count 342 sodium 136 potassium 4.6 chloride 100 CO2 26 BUN 36 creatinine 1.51 creatinine was 1.3 on 01/02/2023 lactic acid was elevated at 2.6 troponin normal at 0.012 TSH was low at 0.015 urine analysis was positive for leukocyte esterase Testing in the emergency room revealed chest x-ray done in the emergency room revealed mild atelectasis in the left lung and chronic elevation in the right diaphragm, EKG revealed sinus rhythm with 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 Patient was admitted to medical floor for further evaluation and treatment Past medical history is significant for history of hypertension, history of hypothyroidism, history of hyperlipidemia, history of coronary artery disease, history of [id number]-nqjuxavoh diabetes mellitus, history of obstructive sleep apnea. On review of systems patient is alert and oriented 3 in no apparent distress there is no fever or chills no headache or dizziness no chest pain , she is complaining of shortness of breath no cough no nausea or vomiting no abdominal pain no diarrhea and no urinary symptoms. 01/18/2023 patient was seen and examined on the medical she is alert and oriented 3 in no apparent distress she is still complaining of severe generalized weakness and complaining of shortness of breath with activity, patient has evidence of urinary tract infection, evidence of iron deficiency anemia, acute on chronic renal failure, and known history of coronary artery disease, echocardiogram is still pending, physical therapy occupational therapy consult, IV iron, labs today are still pending, will follow closely. on 01/19/2023 patient is alert and oriented 3. Patient complaining of incre ased shortness of breath and wheezing. Discussed case with nephrology services will order 1 time dose of IV Bumex and DC IV fluids. Chest x-ray also ordered. Patient denies chest pain. Patient denies nausea vomiting or diarrhea. Patient denies any urinary burning or frequency On 01/20/2023 patient was seen and examined on the medical floor she is alert and oriented 3 in no apparent distress she is still complaining of shortness of breath and wheezing patient also has mild lower extremity edema at this time patient has evidence of fluid overload Bumex 2 mg by mouth twice a day was resumed. Nephrology and pulmonary are following we will continue to follow closely. On 01/21/2023 patient was seen and examined on the medical floor she is alert and oriented 3 in no apparent distress she is still complaining of shortness of breath, yesterday patient had episodes of confusion and hallucination, computed tomography scan of the brain was ordered, and neurology consultation was requested, today patient was reevaluated by nephrology, Bumex was switched to IV due to continued evidence of fluid overload, otherwise patient was continued on the same medications, patient seems to be stable at this time will continue to follow closely. ON 01/22/2023 patient is alert and oriented 3. Patient currently maintained on IV Bumex. Patient reports slight improvement with shortness of breath. Patient denies chest pain. Patient denies nausea vomiting or diarrhea. Patient denies any urinary burning or frequency. On 01/23/2023 patient was seen and examined on the medical floor she is alert and oriented 3 in no apparent distress she is complaining of cough, she stated that her shortness of breath has improved, yesterday patient tested positive for COVID-19, she was agreeable to start IV Solu-Medrol, she was also started on insulin sliding scale, otherwise she denies any complaints there is no fever or chills no headache or dizziness no chest pain no nausea or vomiting no abdominal pain no diarrhea and no urinary symptoms On 01/24/2023 patient is alert and oriented 3. Patient reports some improvement with shortness of breath. Patient remains on IV steroids. Temp 97.8, pulse rate 69, respiratory rate 24, blood pressure 150/63 with pulse ox 98% on 3 L On 01/25/2023 patient was seen and examined on the medical floor she is alert and oriented 3 in no apparent distress she reports some improvement in her cough and shortness of breath and wheezing otherwise she denies any complaints there is no fever or chills no headache or dizziness no chest pain no nausea or vomiting no abdominal pain no diarrhea no blood in the stools no burning with urination no frequency or urgency and no hematuria. Today I will switch Bumex back to 2 mg by mouth twice daily, will add the Mucinex and Cepacol lozenges, patient is improving gradually. On 01/26/2023 patient is alert and oriented 3. Patient reports minimum improvement with shortness breath. Patient remains on IV steroids. Patient having elevated blood sugars. Will add Lantus 10 units and glipizide. Current vital signs 98.2, 66, respiratory rate 17, blood pressure 156/77, pulse ox 94% on 3 L Objective - Vital Signs Vital signs: Vital Signs Temp 98.2 F 01/26/23 07:20 Pulse 66 01/26/23 07:20 Resp 17 01/26/23 07:20 BP 156/77 01/26/23 07:20 Pulse Ox 94 L 01/26/23 09:57 FiO2 2 01/20/23 08:44 Intake & Output 01/25/23 01/26/23 01/26/23 18:59 06:59 18:59 Intake Total 1080 Balance 1080 Intake: Oral 1080 Other: # Voids 3 2 - Exam In general patient is alert and oriented x 3 in no distress HEENT head normocephalic and atraumatic Neck is supple no JVD no goiter no lymphadenopathy no carotid bruit Chest examination is clear to auscultation no crackles no wheezing Cardiac exam reveals regular heart sounds S1 and S2 no gallops no murmurs Abdomen is soft nontender no organomegaly with normal bowel sounds Extremity exam reveals no edema no cyanosis or clubbing Neurological examination reveals no gross focal deficits - Labs CBC & Chem 7: 01/25/23 06:48 01/25/23 06:48 Labs: Abnormal Lab Results - Last 24 Hours (Table) 01/25/23 01/25/23 01/25/23 Range/Units 06:48 06:48 11:28 WBC 12.00 H (4.50-10.00) X 10*3/uL RBC 2.64 L (4.10-5.20) X 10*6/uL Hgb 8.1 L (12.0-15.0) g/dL Hct 26.9 L (37.2-46.3) % MCV 101.9 H (80.0-97.0) fL MCHC 30.1 L (32.0-37.0) g/dL Absolute Nucleated RBC 0.02 H (0.00-0.00) X 10*3/uL Immature Gran # 0.13 H (0.00-0.04) X 10*3/uL Neutrophils # 10.35 H (1.80-7.70) X 10*3/uL Eosinophils # 0 L (0.04-0.35) X 10*3/uL NRBC/100 WBC Diff 0.2 H (0.0-0.0) /100 WBCS BUN 27.7 H (9.0-27.0) mg/dL Est GFR (CKD-EPI)AfAm 59.7 L (60.0-200.0) Est GFR (CKD-EPI)NonAf 51.6 L (60.0-200.0) BUN/Creatinine Ratio 26.38 H (12.00-20.00) Ratio Glucose 209 H (70-110) mg/dL POC Glucose (mg/dL) 271 H (70-110) mg/dL Total Bilirubin <0.15 L (0.30-1.20) mg/dL ALT 46 H (8-44) U/L Total Protein 5.7 L (6.2-8.2) g/dL Albumin 3.4 L (3.8-4.9) g/dL Albumin/Globulin Ratio 1.45 L (1.60-3.17) g/dL 01/25/23 01/25/23 01/26/23 Range/Units 16:25 20:43 06:09 WBC (4.50-10.00) X 10*3/uL RBC (4.10-5.20) X 10*6/uL Hgb (12.0-15.0) g/dL Hct (37.2-46.3) % MCV (80.0-97.0) fL MCHC (32.0-37.0) g/dL Absolute Nucleated RBC (0.00-0.00) X 10*3/uL Immature Gran # (0.00-0.04) X 10*3/uL Neutrophils # (1.80-7.70) X 10*3/uL Eosinophils # (0.04-0.35) X 10*3/uL NRBC/100 WBC Diff (0.0-0.0) /100 WBCS BUN (9.0-27.0) mg/dL Est GFR (CKD-EPI)AfAm (60.0-200.0) Est GFR (CKD-EPI)NonAf (60.0-200.0) BUN/Creatinine Ratio (12.00-20.00) Ratio Glucose (70-110) mg/dL POC Glucose (mg/dL) 373 H 464 H 225 H (70-110) mg/dL Total Bilirubin (0.30-1.20) mg/dL ALT (8-44) U/L Total Protein (6.2-8.2) g/dL Albumin (3.8-4.9) g/dL Albumin/Globulin Ratio (1.60-3.17) g/dL Assessment and Plan Plan: Generalized weakness Evidence of urinary tract infection, started on oral doxycycline Acute kidney injury with elevated BUN and creatinine, blood pressure medications are being adjusted by nephrology, patient is maintained on IV fluid COVID-19 infection. Patient maintained on IV steroids Difficulty swallowing with feeling food stuck in her throat, gastroenterology consultation requested, if not available patient will follow with gastroenterology as outpatient Elevated lactic acid Anemia on presentation, with evidence of iron deficiency, patient unable to tolerate oral iron, IV Venofer was ordered Known history of hypothyroidism maintained on Synthroid was decreased TSH at this time Underlying history of hypertension Underlying history of hyperlipidemia Underlying history of jea-iaxykef-fqayeydul diabetes mellitus Underlying history of COPD, stable patient was evaluated and cleared by pulmonary Underlying history of obstructive sleep apnea Underlying history of coronary artery disease Episode of confusion. Neurology following. 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 Per neurology services recommending MRI of brain with and without as outpatient for further evaluation At this time patient is admitted to medical floor Home medications reviewed and reordered, at this time I will hold metformin, and decreased dose of Synthroid to 50 g daily Will monitor closely
[2023-01-26 10:48] LABS: Basophils % (A) 0 %; Eosinophils % (A) 0 %; HCT 29.3 % (34.0-46.0); HGB 8.9 gm/dL (11.4-16.0); Hypochromasia Slight; Lymphocytes # (A) 0.8 k/uL (1.0-4.8); Lymphocytes % (A) 7 %; MCH 29.9 pg (25.0-35.0); MCHC 30.4 g/dL (31.0-37.0); MCV 98.6 fL (80.0-100.0); Mean Platelet Volume 7.9; Monocytes # (A) 0.6 k/uL (0-1.0); Monocytes % (A) 6 %; Neutrophils # (A) 8.8 k/uL (1.3-7.7); Neutrophils % (A) 85 %; Platelet Count 402 k/uL (150-450); RBC 2.97 m/uL (3.80-5.40); RDW 13.3 % (11.5-15.5); WBC 10.3 k/uL (3.8-10.6)
[2023-01-26 10:58] LABS: ALT 57 U/L (4-34); AST 34 U/L (14-36); African American GFR (CKD) 55 (>60 ml/min/1.73 sqM); Albumin 3.3 g/dL (3.5-5.0); Albumin/Globulin Ratio 1.3; Alkaline Phosphatase 69 U/L (38-126); Anion Gap 8 mmol/L; Blood Urea Nitrogen 27 mg/dL (7-17); Calcium 8.7 mg/dL (8.4-10.2); Carbon Dioxide 31 mmol/L (22-30); Chloride 101 mmol/L (98-107); Globulin 2.6 g/dL; Glucose 246 mg/dL (74-99); Non-African American GFR(CKD) 48 (>60 ml/min/1.73 sqM); Potassium 4.5 mmol/L (3.5-5.1); Sodium 140 mmol/L (137-145); Total Bilirubin 0.4 mg/dL (0.2-1.3); Total Protein 5.9 g/dL (6.3-8.2)
--- NOTE | 2023-01-26 11:07 | P.PN ---
Subjective Progress Note Date: 01/26/23 This is a pleasant 77 showed female patient who follows with Dr. van as her primary care provider. She has a history of coronary artery disease with previous coronary artery bypass grafting, previous stent placement, diabetes mellitus, hypothyroidism, hypertension, hyperlipidemia, chronic obstructive pulmonary disease from 30 years of smoking. She is maintained on Symbicort and albuterol along with oxygen at nighttime. She follows with a payroll master out of the [facility] system. She presented here to the emergency room last evening with the complaint of generalized weakness and fatigue that have been progressing over the past week. She feels exhausted. She is dyspneic on exertion. Some abdominal pain and cramping with intermittent diarrhea. Chest x- ray revealed some mild atelectasis of the left base. No overt heart failure. Mild chronic elevation of the right hemidiaphragm. White count 7.8. Hemoglobin 9.7. Platelets 342. D-dimer 0.39. Sodium 136. Potassium 4.6. Bicarb 26. BUN 36. Creatinine 1.51. Glucose 142. TSH less than 0.015. Free T4 1 0.14. Urinalysis clean. Ultrasound of the kidneys/renal and bladder revealed no evidence of hydronephrosis. No nephrolithiasis. No solid masses identified. The urinary bladder is anechoic. She is seen today in consultation on the regular medical floor. Currently laying comfortable in bed. Awake and alert in no acute distress. Maintaining good O2 saturations in the 90s on 2 L/m per nasal cannula. Normal saline at 75 mls per hour. She is on Symbicort and albuterol. Empiric antibiotics in the form of doxycycline. The patient is seen today 01/18/2023 in follow-up on the regular medical floor. She is currently resting comfortably in bed. Awake and alert in no acute distress. Less weak today compared to yesterday. Still some fatigue on minimal exertion. Maintaining O2 saturations in the 90s on 2 L/m per nasal cannula. She says some mild wheezing. Normal saline at 75 ML's per hour. Sodium 143. Potassium 4.4. Bicarb 26. BUN 25. Creatinine 1.1. Glucose 109. She is continued on Symbicort, albuterol, empiric antibiotics in the form of doxycycline. The patient is seen today 01/19/2023 in follow-up on the regular medical floor. She is currently resting comfortably in bed. Still with some complaints of shortness of breath and wheezing. Maintaining good O2 saturations in the high 90s on 2 L/m per nasal cannula. She is continued on Symbicort and albuterol. Antibiotics in the form of doxycycline. Chest x-ray reveals evidence of atelectasis of the lung bases. Blood sugar 115. On today's evaluation of the 2022, the patient still having difficulties with shortness of breath, bronchospasm and the patient is also on oxygen between 2 and 3 L/m nasal cannula. While on 2 L, pulse ox dropped down to 86% and had to bring it up to 3 L. The patient is otherwise doing well. No specific complaints for now. I wanted to put her on IV Solu-Medrol. Nevertheless, the patient is diabetic and she declined as she is aware that steroids will make her sugars elevated and she will not tolerate steroids because of other side effects including increased agitation or restlessness. Based on that, no systemic steroids and the provided. She is on Symbicort as maintenance 2 puffs twice a day, and return about treatments [id number] and the rest of the home medications and resume. She is receiving empiric antibiotic coverage with doxycycline. She is known to have CAD, previous bypass surgery, previous stenting, and as mentioned she is diabetic and she has hypertension and h yperlipidemia and hypothyroidism. Her payroll master is Dr. Scott out of [facility]. 01/21/2023, the patient states that she is essentially unchanged. Her respiratory status is looking the same as yesterday. She remains on Symbicort. She is on nebulized treatments [id number]. She is on no steroids for now. She did have a bout of confusion according to the nursing staff and that she was given a CAT scan of the brain that turned out to be negative. I see the patient to be very appropriate at this point in time. No other new complaints otherwise. Her cough is dry. She still bronchospastic. 01/22/2023, the patient is in the right direction. She is less bronchospastic and wheezy. I switched him to a combination of Perforomist and Pulmicort neb blotchiness twice a day and him being an albuterol [id number]. She is on Symbicort for now. No new complaints. She is still on oxygen at 2 L nasal cannula.No new labs are available from today. Blood sugar is controlled. Pro- calcitonin level was at 0.1. On 01/23/2023, the patient is being seen for a follow-up. Since yesterday, the patient was diagnosed having Covid 19 and she tested positive. Based on that, the patient was started on IV Solu-Medrol 40 mg every 8 hours. Perforomist and Pulmicort updrafts were also discontinued and the patient was placed back on Symbicort and albuterol HFA. She remains on oxygen at 3 L. Some limited cough and congestion. No other new complaints otherwise for now. 01/24/2023, the patient is clinically feeling slightly improved. Less bronchospastic and wheezy. Still oxygen dependent. She is on IV Solu-Medrol in the blood sugars are slightly elevated. She is worried about elevation of the blood sugar. We are giving her insulin for blood sugar control. Morning blood sugar was up to 65. D-dimer is at 0.7. There was done at 9.9 with a hemoglobin of 8.4 and a platelet count of 330. No other significant events otherwise for now. She is on oxygen at 3 L nasal cannula and her pulse ox is up to 98%. She is still having some cough and congestion. She is to bronchospastic and wheezy. She is afebrile. Are 2022, the patient states that she is still the same. I agreed to her judgment as the patient is still having a congested cough and a wheeze and some degree of shortness of breath especially with she ambulates and the patient is still on oxygen at 3 L nasal cannula. She is doing well otherwise for no new complaints. As mentioned earlier, she has an underlying COPD exacerbation and Covid 19 infection. No nausea or emesis. No altered mentation. 01/26/2023, the patient is still coughing and wheezing. She is a case of Covid 19 positive infection in addition to the acute COPD exacerbation. She is still requiring oxygen at 3 L. The patient remains on IV Solu-Medrol. Blood sugars are being treated and managed by the medical team.The patient always cause of 10.3 with a hemoglobin of 8.9 and a platelet count of 42. BUN is 27 with a creatinine of 1.1 and sodium levels of 140. Objective - Vital Signs Vital signs: Vital Signs Temp 98.2 F 01/26/23 07:20 Pulse 66 01/26/23 07:20 Resp 17 01/26/23 07:20 BP 156/77 01/26/23 07:20 Pulse Ox 94 L 01/26/23 09:57 FiO2 2 01/20/23 08:44 Intake & Output 01/25/23 01/26/23 01/26/23 18:59 06:59 18:59 Intake Total 1080 Balance 1080 Intake: Oral 1080 Other: # Voids 3 2 - Exam GENERAL EXAM: Alert, 77-year-old female, on 2-3 L nasal cannula, comfortable in no apparent distress. HEAD: Normocephalic. EYES: Normal reaction of pupils, equal size. NOSE: Clear with pink turbinates. THROAT: No erythema or exudates. NECK: No masses, no JVD. CHEST: No chest wall deformity. LUNGS: Equal air entry with forced end expiratory wheeze on exhalation. CVS: S1 and S2 normal with no audible murmur, regular rhythm. ABDOMEN: No hepatosplenomegaly, normal bowel sounds, no guarding or rigidity. SPINE: No scoliosis or deformity SKIN: No rashes CENTRAL NERVOUS SYSTEM: No focal deficits, tone is normal in all 4 extremities. EXTREMITIES: There is no peripheral edema. No clubbing, no cyanosis. Peripheral pulses are intact. - Labs CBC & Chem 7: 01/26/23 10:00 01/26/23 10:00 Labs: Abnormal Lab Results - Last 24 Hours (Table) 01/25/23 01/25/23 01/25/23 Range/Units 06:48 06:48 11:28 WBC 12.00 H (4.50-10.00) X 10*3/uL RBC 2.64 L (4.10-5.20) X 10*6/uL Hgb 8.1 L (12.0-15.0) g/dL Hct 26.9 L (37.2-46.3) % MCV 101.9 H (80.0-97.0) fL MCHC 30.1 L (32.0-37.0) g/dL Absolute Nucleated RBC 0.02 H (0.00-0.00) X 10*3/uL Immature Gran # 0.13 H (0.00-0.04) X 10*3/uL Neutrophils # 10.35 H (1.80-7.70) X 10*3/uL Lymphocytes # (1.0-4.8) k/uL Eosinophils # 0 L (0.04-0.35) X 10*3/uL NRBC/100 WBC Diff 0.2 H (0.0-0.0) /100 WBCS Carbon Dioxide (22-30) mmol/L BUN 27.7 H (9.0-27.0) mg/dL Creatinine (0.52-1.04) mg/dL Est GFR (CKD-EPI)AfAm 59.7 L (60.0-200.0) Est GFR (CKD-EPI)NonAf 51.6 L (60.0-200.0) BUN/Creatinine Ratio 26.38 H (12.00-20.00) Ratio Glucose 209 H (70-110) mg/dL POC Glucose (mg/dL) 271 H (70-110) mg/dL Total Bilirubin <0.15 L (0.30-1.20) mg/dL ALT 46 H (8-44) U/L Total Protein 5.7 L (6.2-8.2) g/dL Albumin 3.4 L (3.8-4.9) g/dL Albumin/Globulin Ratio 1.45 L (1.60-3.17) g/dL 01/25/23 01/25/23 01/26/23 Range/Units 16:25 20:43 06:09 WBC (4.50-10.00) X 10*3/uL RBC (4.10-5.20) X 10*6/uL Hgb (12.0-15.0) g/dL Hct (37.2-46.3) % MCV (80.0-97.0) fL MCHC (32.0-37.0) g/dL Absolute Nucleated RBC (0.00-0.00) X 10*3/uL Immature Gran # (0.00-0.04) X 10*3/uL Neutrophils # (1.80-7.70) X 10*3/uL Lymphocytes # (1.0-4.8) k/uL Eosinophils # (0.04-0.35) X 10*3/uL NRBC/100 WBC Diff (0.0-0.0) /100 WBCS Carbon Dioxide (22-30) mmol/L BUN (9.0-27.0) mg/dL Creatinine (0.52-1.04) mg/dL Est GFR (CKD-EPI)AfAm (60.0-200.0) Est GFR (CKD-EPI)NonAf (60.0-200.0) BUN/Creatinine Ratio (12.00-20.00) Ratio Glucose (70-110) mg/dL POC Glucose (mg/dL) 373 H 464 H 225 H (70-110) mg/dL Total Bilirubin (0.30-1.20) mg/dL ALT (8-44) U/L Total Protein (6.2-8.2) g/dL Albumin (3.8-4.9) g/dL Albumin/Globulin Ratio (1.60-3.17) g/dL 01/26/23 01/26/23 Range/Units 10:00 10:00 WBC (4.50-10.00) X 10*3/uL RBC 2.97 L (4.10-5.20) X 10*6/uL Hgb 8.9 L (12.0-15.0) g/dL Hct 29.3 L (37.2-46.3) % MCV (80.0-97.0) fL MCHC 30.4 L (32.0-37.0) g/dL Absolute Nucleated RBC (0.00-0.00) X 10*3/uL Immature Gran # (0.00-0.04) X 10*3/uL Neutrophils # 8.8 H (1.80-7.70) X 10*3/uL Lymphocytes # 0.8 L (1.0-4.8) k/uL Eosinophils # (0.04-0.35) X 10*3/uL NRBC/100 WBC Diff (0.0-0.0) /100 WBCS Carbon Dioxide 31 H (22-30) mmol/L BUN 27 H (9.0-27.0) mg/dL Creatinine 1.12 H (0.52-1.04) mg/dL Est GFR (CKD-EPI)AfAm (60.0-200.0) Est GFR (CKD-EPI)NonAf (60.0-200.0) BUN/Creatinine Ratio (12.00-20.00) Ratio Glucose 246 H (70-110) mg/dL POC Glucose (mg/dL) (70-110) mg/dL Total Bilirubin (0.30-1.20) mg/dL ALT 57 H (8-44) U/L Total Protein 5.9 L (6.2-8.2) g/dL Albumin 3.3 L (3.8-4.9) g/dL Albumin/Globulin Ratio (1.60-3.17) g/dL Assessment and Plan Plan: Acute Covid 19 infection, exact timing of infection is not clear. The patient tested positive and the patient is currently on IV Solu-Medrol , along with a co mponent of an acute hypoxic respiratory failure, improving clinically. The patient is currently on IV Solu-Medrol. COPD exacerbation with secondary shortness of breath, secondary to above Acute on chronic hypoxic respiratory failure and oxygen requirements are ranging between 2 and 3 L/m nasal cannula. Generalized weakness suspect secondary to diarrhea and dehydration Acute kidney injury secondary to above, improving and the creatinine is down to 1.1 Dysphagia of unclear etiology Anemia of unclear etiology, current hemoglobin 8.4 kilos no Hypothyroidism with current TSH less than 0.015, dose adjusted Chronic obstructive pulmonary disease, currently inactive in stable Former smoker Coronary disease with previous stent placement and previous bypass grafting Hypertension Hyperlipidemia Diabetes mellitus Obstructive sleep apnea, intolerant to CPAP therapy Plan: The patient on IV Solu-Medrol for another 24 hours and consider switching her to Decadron in a.m. Is very much possible that the patient may ultimately need home O2. Her recovery is going to be slow and the rest of the recovery should be done at home. I think she is going to need a course of steroids with Decadron 6 mg a daily basis for the next 10 days and this should be given to her the time of discharge. Oxygen also needs to be arranged and I think she does have oxygen. Meanwhile, during her hospital stay, Medicines Continue Symbicort. Continue albuterol HFA. Will follow.
[2023-01-26 11:57] LABS: Glucose,Whole Blood 299 mg/dL (70-110)
--- NOTE | 2023-01-26 12:52 | XR ---
EXAMINATION TYPE: XR chest 1V DATE OF EXAM: 01/26/2023 CLINICAL HISTORY: Cough. TECHNIQUE: Single AP portable upright view of the chest is obtained. COMPARISON: Chest x-ray from 4 days earlier FINDINGS: Overlying sternal wires and mediastinal clips are redemonstrated. There is chronic parench ymal change bilaterally with left basilar increased opacity. Cardiac silhouette size stable and upper limits of normal. Osseous structures are intact. Cholecystectomy clips are present. IMPRESSION: Chronic parenchymal changes with left basilar acute infiltrate and/or atelectasis again s een. No significant change from prior.
[2023-01-26 16:12] LABS: Glucose,Whole Blood 352 mg/dL (70-110)
--- NOTE | 2023-01-26 16:12 | P.PN ---
Subjective Progress Note Date: 01/26/23 Follow-up for acute kidney injury. Objective - Vital Signs Vital signs: Vital Signs Temp 98.3 F 01/26/23 13:27 Pulse 73 01/26/23 13:27 Resp 16 01/26/23 13:27 BP 152/69 01/26/23 13:27 Pulse Ox 92 L 01/26/23 13:27 FiO2 2 01/20/23 08:44 Intake & Output 01/25/23 01/26/23 01/26/23 18:59 06:59 18:59 Intake Total 1080 Balance 1080 Intake: Oral 1080 Other: # Voids 3 2 2 - Exam No acute distress S1-S2 heard Decreased breath sounds Trace edema - Labs CBC & Chem 7: 01/26/23 10:00 01/26/23 10:00 Labs: Abnormal Lab Results - Last 24 Hours (Table) 01/25/23 01/25/23 01/26/23 Range/Units 16:25 20:43 06:09 RBC (3.80-5.40) m/uL Hgb (11.4-16.0) gm/dL Hct (34.0-46.0) % MCHC (31.0-37.0) g/dL Neutrophils # (1.3-7.7) k/uL Lymphocytes # (1.0-4.8) k/uL Carbon Dioxide (22-30) mmol/L BUN (7-17) mg/dL Creatinine (0.52-1.04) mg/dL Glucose (74-99) mg/dL POC Glucose (mg/dL) 373 H 464 H 225 H (70-110) mg/dL ALT (4-34) U/L Total Protein (6.3-8.2) g/dL Albumin (3.5-5.0) g/dL 01/26/23 01/26/23 01/26/23 Range/Units 10:00 10:00 11:55 RBC 2.97 L (3.80-5.40) m/uL Hgb 8.9 L (11.4-16.0) gm/dL Hct 29.3 L (34.0-46.0) % MCHC 30.4 L (31.0-37.0) g/dL Neutrophils # 8.8 H (1.3-7.7) k/uL Lymphocytes # 0.8 L (1.0-4.8) k/uL Carbon Dioxide 31 H (22-30) mmol/L BUN 27 H (7-17) mg/dL Creatinine 1.12 H (0.52-1.04) mg/dL Glucose 246 H (74-99) mg/dL POC Glucose (mg/dL) 299 H (70-110) mg/dL ALT 57 H (4-34) U/L Total Protein 5.9 L (6.3-8.2) g/dL Albumin 3.3 L (3.5-5.0) g/dL Assessment and Plan Assessment: #1 acute kidney injury COVID-19 ATN #2 chronic kidney disease stage II with a baseline creatinine of 1.0 MG per DL #3 lactic acidosis resolved #4 volume overload improving #5 Covid 19 infection Plan: #1 currently on Bumex continue. #2 renal function stable
[2023-01-26] MEDS: glipiZIDE 5 MG TAB PO SCH (17:10)
[2023-01-26 21:17] LABS: Glucose,Whole Blood 255 mg/dL (70-110)
[2023-01-26] MEDS: ATORVASTATIN 80 MG TAB PO SCH (21:30)
[2023-01-26] MEDS: ACETAMINOPHEN TAB 325 MG TAB PO PRN (21:30)
[2023-01-26] MEDS: LORazepam 1 MG TAB PO SCH (21:30)
[2023-01-26] MEDS: INSULIN DETEMIR (LEVEMIR) 100 UNIT/ML SYR SQ SCH (21:44)
[2023-01-27 06:03] LABS: Glucose,Whole Blood 227 mg/dL (70-110)
[2023-01-27] MEDS: LEVOTHYROXINE 50 MCG TAB PO SCH (06:21)
[2023-01-27] MEDS: INSULIN ASPART (NovoLOG) 100 UNIT/ML VIAL SQ SCH ×4 (06:31→21:28)
[2023-01-27] MEDS: methylPREDNISolone SOD SUCCI 40 MG/ML 1 ML VIAL IV SCH ×2 (08:39)
[2023-01-27] MEDS: glipiZIDE 5 MG TAB PO SCH ×2 (09:35→17:14)
[2023-01-27] MEDS: PANTOPRAZOLE 40 MG TABLET PO SCH (09:35)
[2023-01-27] MEDS: guaiFENesin 600 MG TABLET.ER PO SCH ×2 (09:35→21:27)
[2023-01-27] MEDS: NITROGLYCERIN 0.4MG/HR PATCH TRANSDERM SCH (09:35)
[2023-01-27] MEDS: LORATADINE 10 MG TAB PO SCH (09:35)
[2023-01-27] MEDS: BUMETANIDE 1 MG TAB PO SCH ×2 (09:35→17:14)
[2023-01-27] MEDS: DULoxetine HCL 60 MG CAPSULE.DR PO SCH (09:35)
[2023-01-27] MEDS: DICYCLOMINE 20 MG TAB PO SCH ×4 (09:35→21:27)
[2023-01-27] MEDS: CLOPIDOGREL 75 MG TAB PO SCH (09:35)
[2023-01-27] MEDS: LORazepam 0.5 MG TAB PO SCH (09:35)
[2023-01-27] MEDS: ASCORBIC ACID 500 MG TAB PO SCH (09:36)
[2023-01-27] MEDS: METOPROLOL TARTRATE 50 MG TAB PO SCH ×2 (09:37→21:27)
[2023-01-27] MEDS: MULTIVITAMINS, THERA 1 EACH TAB PO SCH (09:37)
[2023-01-27] MEDS: RANOLAZINE 500 MG TAB.ER.12H PO SCH ×2 (09:37→21:28)
[2023-01-27] MEDS: ENOXAPARIN 40 MG/0.4 ML SYRINGE SQ SCH (09:37)
[2023-01-27] MEDS: ALBUTEROL HFA INHALER INHALATION PRN ×2 (09:59→20:58)
[2023-01-27] MEDS: SYMBICORT 80-4.5 MCG INHALER INHALATION SCH ×2 (10:00→20:58)
[2023-01-27 10:42] LABS: Basophils # (A) 0.04 X 10*3/uL (0.00-0.10); Basophils % (A) 0.4 %; Eosinophils # (A) 0.01 X 10*3/uL (0.04-0.35); Eosinophils % (A) 0.1 %; HCT 28.1 % (37.2-46.3); HGB 8.5 g/dL (12.0-15.0); Immature Grans, Automated 2.9 %; Lymphocytes # (A) 0.62 X 10*3/uL (0.90-5.00); Lymphocytes % (A) 6.6 %; MCH 30.4 pg (27.0-32.0); MCHC 30.2 g/dL (32.0-37.0); MCV 100.4 fL (80.0-97.0); Mean Platelet Volume 9.8 fL (9.5-12.2); Monocytes # (A) 0.65 X 10*3/uL (0.20-1.00); Monocytes % (A) 6.9 %; NRBC Per 100 WBC 1.1 /100 WBCS (0.0-0.0); Neutrophils # (A) 7.87 X 10*3/uL (1.80-7.70); Neutrophils % (A) 83.1 %; Platelet Count 374 X 10*3/uL (140-440); RDW 13.1 % (11.5-14.5); WBC 9.46 X 10*3/uL (4.50-10.00)
[2023-01-27 10:56] LABS: African American GFR (CKD) 63.4 (60.0-200.0); Albumin 3.3 g/dL (3.8-4.9); Albumin/Globulin Ratio 1.43 (1.60-3.17); BUN/Creat Ratio 27.4 Ratio (12.00-20.00); Blood Urea Nitrogen 27.4 mg/dL (9.0-27.0); Calcium 8.7 mg/dL (8.7-10.3); Globulin 2.3 g/dL (1.6-3.3); Non-African American GFR(CKD) 54.7 (60.0-200.0); Potassium 4.6 mmol/L (3.5-5.5); Total Bilirubin 0.2 mg/dL (0.30-1.20); Total Protein 5.6 g/dL (6.2-8.2)
--- NOTE | 2023-01-27 11:18 | P.PN ---
Subjective Patient is seen in follow-up for acute kidney injury on chronic kidney disease. Renal function back to baseline. On oral Bumex. Good urine output. On 3 L a left. Denies chest pain or shortness of breath. Does admit to a nonproductive cough. Vital signs are stable. General: No acute distress. HEENT: Head exam is unremarkable. LUNGS: No audible rhonchi or wheezes. HEART: Rate and Rhythm are regular. ABDOMEN: No distention. EXTREMITITES: No edema. Objective - Vital Signs Vital signs: Vital Signs Temp 98.9 F 01/27/23 07:14 Pulse 50 L 01/27/23 08:44 Resp 18 01/27/23 08:44 BP 193/82 01/27/23 07:14 Pulse Ox 94 L 01/27/23 10:00 FiO2 2 01/20/23 08:44 Intake & Output 01/26/23 01/27/23 01/27/23 18:59 06:59 18:59 Other: Voiding Method Toilet Toilet # Voids 2 2 - Labs CBC & Chem 7: 01/27/23 06:29 01/27/23 06:29 Labs: Abnormal Lab Results - Last 24 Hours (Table) 01/26/23 01/26/23 01/26/23 Range/Units 11:55 16:08 21:15 RBC (4.10-5.20) X 10*6/uL Hgb (12.0-15.0) g/dL Hct (37.2-46.3) % MCV (80.0-97.0) fL MCHC (32.0-37.0) g/dL Absolute Nucleated RBC (0.00-0.00) X 10*3/uL Immature Gran # (0.00-0.04) X 10*3/uL Neutrophils # (1.80-7.70) X 10*3/uL Lymphocytes # (0.90-5.00) X 10*3/uL Eosinophils # (0.04-0.35) X 10*3/uL NRBC/100 WBC Diff (0.0-0.0) /100 WBCS Carbon Dioxide (20.0-27.5) mmol/L BUN (9.0-27.0) mg/dL Est GFR (CKD-EPI)NonAf (60.0-200.0) BUN/Creatinine Ratio (12.00-20.00) Ratio Glucose (70-110) mg/dL POC Glucose (mg/dL) 299 H 352 H 255 H (70-110) mg/dL Total Bilirubin (0.30-1.20) mg/dL ALT (8-44) U/L Total Protein (6.2-8.2) g/dL Albumin (3.8-4.9) g/dL Albumin/Globulin Ratio (1.60-3.17) g/dL 01/27/23 01/27/23 01/27/23 Range/Units 06:01 06:29 06:29 RBC 2.80 L (4.10-5.20) X 10*6/uL Hgb 8.5 L (12.0-15.0) g/dL Hct 28.1 L (37.2-46.3) % MCV 100.4 H (80.0-97.0) fL MCHC 30.2 L (32.0-37.0) g/dL Absolute Nucleated RBC 0.10 H (0.00-0.00) X 10*3/uL Immature Gran # 0.27 H (0.00-0.04) X 10*3/uL Neutrophils # 7.87 H (1.80-7.70) X 10*3/uL Lymphocytes # 0.62 L (0.90-5.00) X 10*3/uL Eosinophils # 0.01 L (0.04-0.35) X 10*3/uL NRBC/100 WBC Diff 1.1 H (0.0-0.0) /100 WBCS Carbon Dioxide 31.0 H (20.0-27.5) mmol/L BUN 27.4 H (9.0-27.0) mg/dL Est GFR (CKD-EPI)NonAf 54.7 L (60.0-200.0) BUN/Creatinine Ratio 27.40 H (12.00-20.00) Ratio Glucose 209 H (70-110) mg/dL POC Glucose (mg/dL) 227 H (70-110) mg/dL Total Bilirubin 0.20 L (0.30-1.20) mg/dL ALT 51 H (8-44) U/L Total Protein 5.6 L (6.2-8.2) g/dL Albumin 3.3 L (3.8-4.9) g/dL Albumin/Globulin Ratio 1.43 L (1.60-3.17) g/dL Assessment and Plan Plan: Assessment: 1. Acute kidney injury secondary to COVID ATN. Creatinine 1.51 on admission and is 1.0 today. UA benign. No hydronephrosis noted on kidney ultrasound. 2. Chronic kidney disease stage II/IIIa with baseline creatinine near 1 secondary to nephrosclerosis. 3. Lactic acidosis secondary to hypovolemia/hypotension. 4. Diabetes mellitus. 5. COVID-19 infection. 6. Volume overload. Improved with diuresis. 7. Anemia. Rule out iron deficiency. Plan: Maintain Bumex. Avoid nephrotoxins. Continue to monitor renal function and urine output. Check iron studies.
[2023-01-27] MEDS ORDERED: hydrALAZINE HCL 20 MG/ML 1 ML VIAL IVP PRN (11:20)
[2023-01-27 11:44] LABS: Glucose,Whole Blood 263 mg/dL (70-110)
--- NOTE | 2023-01-27 13:42 | P.PN ---
Subjective Progress Note Date: 01/27/23 This is a pleasant 77 showed female patient who follows with Dr. van as her primary care provider. She has a history of coronary artery disease with previous coronary artery bypass grafting, previous stent placement, diabetes mellitus, hypothyroidism, hypertension, hyperlipidemia, chronic obstructive pulmonary disease from 30 years of smoking. She is maintained on Symbicort and albuterol along with oxygen at nighttime. She follows with a chief of pediatric urology out of the [facility] system. She presented here to the emergency room last evening with the complaint of generalized weakness and fatigue that have been progressing over the past week. She feels exhausted. She is dyspneic on exertion. Some abdominal pain and cramping with intermittent diarrhea. Chest x- ray revealed some mild atelectasis of the left base. No overt heart failure. Mild chronic elevation of the right hemidiaphragm. White count 7.8. Hemoglobin 9.7. Platelets 342. D-dimer 0.39. Sodium 136. Potassium 4.6. Bicarb 26. BUN 36. Creatinine 1.51. Glucose 142. TSH less than 0.015. Free T4 1 0.14. Urinalysis clean. Ultrasound of the kidneys/renal and bladder revealed no evidence of hydronephrosis. No nephrolithiasis. No solid masses identified. The urinary bladder is anechoic. She is seen today in consultation on the regular medical floor. Currently laying comfortable in bed. Awake and alert in no acute distress. Maintaining good O2 saturations in the 90s on 2 L/m per nasal cannula. Normal saline at 75 mls per hour. She is on Symbicort and albuterol. Empiric antibiotics in the form of doxycycline. The patient is seen today 01/18/2023 in follow-up on the regular medical floor. She is currently resting comfortably in bed. Awake and alert in no acute distress. Less weak today compared to yesterday. Still some fatigue on minimal exertion. Maintaining O2 saturations in the 90s on 2 L/m per nasal cannula. She says some mild wheezing. Normal saline at 75 ML's per hour. Sodium 143. P otassium 4.4. Bicarb 26. BUN 25. Creatinine 1.1. Glucose 109. She is continued on Symbicort, albuterol, empiric antibiotics in the form of doxycycline. The patient is seen today 01/19/2023 in follow-up on the regular medical floor. She is currently resting comfortably in bed. Still with some complaints of shortness of breath and wheezing. Maintaining good O2 saturations in the high 90s on 2 L/m per nasal cannula. She is continued on Symbicort and albuterol. Antibiotics in the form of doxycycline. Chest x-ray reveals evidence of atelectasis of the lung bases. Blood sugar 115. The patient is seen today 01/27/2023 in follow-up on the regular medical floor. She has been treated for an exacerbation of COPD and COVID-19 infection. She's been slow to progress. She is currently sitting up at the bedside. Awake and alert in no acute distress. She is feeling better. Her main complaint is that of weakness. Her pro-calcitonin level is 0.06. She remains on ceftriaxone. Her chest x-ray and follow-up reveals chronic changes with left basilar acute infiltrate and/or atelectasis. No significant change from previous. She is maintaining good O2 saturations in the 90s on 3 L/m per nasal cannula. She's been afebrile. White count 9.4. He will not 8.5. Sodium 145. Potassium 4.6. Bicarb 31. BUN 27. Creatinine 1.0. Glucose 209. She is continued on Symbicort, albuterol, Lovenox for DVT prophylaxis. She remains on IV Solu- Medrol. Objective - Vital Signs Vital signs: Vital Signs Temp 98.9 F 01/27/23 07:14 Pulse 50 L 01/27/23 08:44 Resp 18 01/27/23 08:44 BP 193/82 01/27/23 07:14 Pulse Ox 94 L 01/27/23 10:00 FiO2 2 01/20/23 08:44 Intake & Output 01/26/23 01/27/23 01/27/23 18:59 06:59 18:59 Other: Voiding Method Toilet Toilet # Voids 2 2 - Exam GENERAL EXAM: Alert, 77-year-old female, on 3 L nasal cannula, comfortable in no apparent distress. HEAD: Normocephalic. EYES: Normal reaction of pupils, equal size. NOSE: Clear with pink turbinates. THROAT: No erythema or exudates. NECK: No masses, no JVD. CHEST: No chest wall deformity. LUNGS: Equal air entry with forced end expiratory wheeze on exhalation. CVS: S1 and S2 normal with no audible murmur, regular rhythm. ABDOMEN: No hepatosplenomegaly, normal bowel sounds, no guarding or rigidity. SPINE: No scoliosis or deformity SKIN: No rashes CENTRAL NERVOUS SYSTEM: No focal deficits, tone is normal in all 4 extremities. EXTREMITIES: There is no peripheral edema. No clubbing, no cyanosis. Peripheral pulses are intact. - Labs CBC & Chem 7: 01/27/23 06:29 01/27/23 06:29 Labs: Abnormal Lab Results - Last 24 Hours (Table) 01/26/23 01/26/23 01/27/23 Range/Units 16:08 21:15 06:01 RBC (4.10-5.20) X 10*6/uL Hgb (12.0-15.0) g/dL Hct (37.2-46.3) % MCV (80.0-97.0) fL MCHC (32.0-37.0) g/dL Absolute Nucleated RBC (0.00-0.00) X 10*3/uL Immature Gran # (0.00-0.04) X 10*3/uL Neutrophils # (1.80-7.70) X 10*3/uL Lymphocytes # (0.90-5.00) X 10*3/uL Eosinophils # (0.04-0.35) X 10*3/uL NRBC/100 WBC Diff (0.0-0.0) /100 WBCS Carbon Dioxide (20.0-27.5) mmol/L BUN (9.0-27.0) mg/dL Est GFR (CKD-EPI)NonAf (60.0-200.0) BUN/Creatinine Ratio (12.00-20.00) Ratio Glucose (70-110) mg/dL POC Glucose (mg/dL) 352 H 255 H 227 H (70-110) mg/dL Total Bilirubin (0.30-1.20) mg/dL ALT (8-44) U/L Total Protein (6.2-8.2) g/dL Albumin (3.8-4.9) g/dL Albumin/Globulin Ratio (1.60-3.17) g/dL 01/27/23 01/27/23 01/27/23 Range/Units 06:29 06:29 11:43 RBC 2.80 L (4.10-5.20) X 10*6/uL Hgb 8.5 L (12.0-15.0) g/dL Hct 28.1 L (37.2-46.3) % MCV 100.4 H (80.0-97.0) fL MCHC 30.2 L (32.0-37.0) g/dL Absolute Nucleated RBC 0.10 H (0.00-0.00) X 10*3/uL Immature Gran # 0.27 H (0.00-0.04) X 10*3/uL Neutrophils # 7.87 H (1.80-7.70) X 10*3/uL Lymphocytes # 0.62 L (0.90-5.00) X 10*3/uL Eosinophils # 0.01 L (0.04-0.35) X 10*3/uL NRBC/100 WBC Diff 1.1 H (0.0-0.0) /100 WBCS Carbon Dioxide 31.0 H (20.0-27.5) mmol/L BUN 27.4 H (9.0-27.0) mg/dL Est GFR (CKD-EPI)NonAf 54.7 L (60.0-200.0) BUN/Creatinine Ratio 27.40 H (12.00-20.00) Ratio Glucose 209 H (70-110) mg/dL POC Glucose (mg/dL) 263 H (70-110) mg/dL Total Bilirubin 0.20 L (0.30-1.20) mg/dL ALT 51 H (8-44) U/L Total Protein 5.6 L (6.2-8.2) g/dL Albumin 3.3 L (3.8-4.9) g/dL Albumin/Globulin Ratio 1.43 L (1.60-3.17) g/dL Assessment and Plan Assessment: Acute Covid 19 infection, exact timing of infection is not clear. COPD exacerbation with secondary shortness of breath, secondary to above Acute on chronic hypoxic respiratory failure and oxygen requirements are ranging between 2 and 3 L/m nasal cannula. Generalized weakness suspect secondary to diarrhea and dehydration Acute kidney injury secondary to above Dysphagia of unclear etiology Anemia of unclear etiology, current hemoglobin 8.5 Hypothyroidism with current TSH less than 0.015, dose adjusted Chronic obstructive pulmonary disease, currently inactive in stable Former smoker Coronary disease with previous stent placement and previous bypass grafting Hypertension Hyperlipidemia Diabetes mellitus Obstructive sleep apnea, intolerant to CPAP therapy Plan: The patient was seen and evaluated Chest x-ray, labs and medications reviewed Continue Symbicort, albuterol Discontinue IV Solu-Medrol Recommend Decadron 6 milligrams by mouth 10 days Titrate the FiO2 as needed Cleared for discharge from the pulmonary standpoint I have personally seen and examined the patient, performed the documentation and the assessment and plan as written. Number of minutes spent on the visit: 10.
[2023-01-27 15:23] VITALS: BMI 26.4
[2023-01-27 15:35] LABS: % Iron Saturation 13.24 (12.00-45.00)
--- NOTE | 2023-01-27 16:00 | P.CONS ---
History of Present Illness - Reason for Consult Consult date: 01/27/23 Difficulty swallowing, anemia Requesting physician: Marc Quintanilla - Chief Complaint Shortness of breath - History of Present Illness This is a pleasant 77-year-old female who presented to the emergency department on 01/16/2023 with complaints of shortness of breath, weakness and intermittent abdominal pain that has been going on for weeks. She has a past medical history including COPD, coronary artery disease status post cardiac stents and CABG, diabetes mellitus, and hypothyroidism. She was admitted with dehydration, low TSH, COPD exacerbation, and acute COVID-19 infection diagnosed 01/22/2023. Apparently patient has been having continued complaints of difficulty swallowing. Gastroenterology was consulted last week however there was no cuff urgent Hospital. Patient is being seen today for the first time. She has seen Dr. Tran outpatient setting and was scheduled to undergo EGD last week but was here hospitalized. Patient was also noted to be anemic on this admission with admitting hemoglobin of 9.7 with a drop down to 7.7 however has remained stable currently at 8.5. Patient denies any black tarry stool or blood in stool prior to admission. States that she did have a little bit of blood with a bowel movement here, nursing thought it was likely hemorrhoidal. States that it was bright red blood, very small amount. Other than that patient denies any previous history of GI bleed. States her last EGD was approximately 3 years ago in her last colonoscopy likely 5 years ago done in [place]. Patient is currently on Plavix and Lovenox. Patient currently denies any abdominal pain, no nausea or vomiting. She does get some nausea at times, general upset stomach feeling but no pain. Has a history of acid reflux. Patient is on IV steroids and 3 L nasal cannula with oxygen saturation around 94%. Patient is audible bilateral wheezes and cough. Pulmonary team following patient closely. Review of Systems REVIEW OF SYSTEMS: CARDIOPULMONARY: No chest pain, positive shortness of breath. Positive cough. Gastrointestinal: Generalized abdominal discomfort. Nausea no vomiting. No hematemesis, coffee-ground emesis. No melena, had small to scant amount of rectal bleeding status post bowel movement. GENITOURINARY: No dysuria or hematuria. MUSCULOSKELETAL: Reports normal range of motion. SKIN: No rashes. No jaundice. ENDOCRINE: No chills, fevers. No excessive weight gain or loss. No polydipsia or polyuria. PSYCHIATRIC: Unremarkable. NEUROLOGY: No change in mental status. Denies dizziness, headache. ENT: Vision unremarkable. CONSTITUTIONAL: No recent weight loss. No fever, chills, night sweats. Past Medical History Past Medical History: Cancer, Diabetes Mellitus, GERD/Reflux, Myocardial Infarction (GA), Osteoarthritis (OA), Thyroid Disorder Last Myocardial Infarction Date:: 2010 History of Any Multi-Drug Resistant Organisms: None Reported Past Surgical History: Breast Surgery, Cholecystectomy, Coronary Bypass/CABG, Heart Catheterization With Stent, Joint Replacement Additional Past Surgical History / Comment(s): Tripple Bypass Past Anesthesia/Blood Transfusion Reactions: No Reported Reaction Date of Last Stent Placement:: Unknown Past Psychological History: Anxiety, Depression Smoking Status: Former smoker Past Alcohol Use History: None Reported Past Drug Use History: None Reported Medications and Allergies Home Medications Medication Instructions Recorded Confirmed Type Albuterol Sulfate [Albuterol 2 puff PO RT-Q6H PRN 01/16/23 01/16/23 History Sulfate Hfa] Ascorbic Acid [Vitamin C] 1,000 mg PO DAILY 01/16/23 01/16/23 History Biotin 5 mg PO DAILY 01/16/23 01/16/23 History Budesonide/Formoterol Fumarate 2 puff INHALATION RT-BID 01/16/23 01/16/23 History [Symbicort 160-4.5 Mcg Inhaler] Bumetanide [BUMEX] 2 mg PO BID@0900,1700 01/16/23 01/16/23 History Clopidogrel [Plavix] 75 mg PO DAILY 01/16/23 01/16/23 History DULoxetine HCL [Cymbalta] 120 mg PO DAILY 01/16/23 01/16/23 History Dicyclomine HCl 20 mg PO QID 01/16/23 01/16/23 History Doxycycline Hyclate [Doryx] 50 mg PO DAILY 01/16/23 01/16/23 History Fexofenadine HCl [Kathy Allergy] 180 mg PO DAILY 01/16/23 01/16/23 History Glucosam/Charlie-Msm1/C/Odilon/Bosw 1 tab PO DAILY 01/16/23 01/16/23 History [Glucosamine-Chondroitin Tablet] LORazepam [Ativan] 0.5 mg PO DAILY 01/16/23 01/16/23 History LORazepam [Ativan] 1 mg PO HS 01/16/23 01/16/23 History Levothyroxine Sodium [Synthroid] 75 mcg PO DAILY 01/16/23 01/16/23 History Metoprolol Tartrate [Lopressor] 50 mg PO BID 01/16/23 01/16/23 History Multivitamins, Thera [Multivitamin 1 tab PO DAILY 01/16/23 01/16/23 History (formulary)] Nitroglycerin 0.4MG/Hr Patch 1 patch TRANSDERM DAILY 01/16/23 01/16/23 History [Nitro-Dur 0.4MG/Hr Patch] Omeprazole [PriLOSEC] 20 mg PO BID 01/16/23 01/16/23 History Potassium Chloride ER [K-Dur 20] 20 meq PO BID 01/16/23 01/16/23 History Ranolazine [Ranexa] 500 mg PO BID 01/16/23 01/16/23 History Rosuvastatin Calcium [Crestor] 40 mg PO HS 01/16/23 01/16/23 History lisinopriL [Zestril] 2.5 mg PO DAILY 01/16/23 01/16/23 History metFORMIN HCL [Glucophage] 1,000 mg PO BID 01/16/23 01/16/23 History Allergies Allergy/AdvReac Type Severity Reaction Status Date / Time No Known Allergies Allergy Verified 01/16/23 21:04 Physical Exam Vitals: Vital Signs Temp Pulse Resp BP Pulse Ox 01/27/23 10:00 94 L 01/27/23 08:44 50 L 18 01/27/23 07:14 98.9 F 50 L 18 193/82 94 L 01/27/23 02:12 98.2 F 68 16 167/64 94 L 01/26/23 20:05 16 01/26/23 19:27 98.2 F 75 168/67 95 01/26/23 13:27 98.3 F 73 16 152/69 92 L Intake and Output 01/26/23 01/27/23 01/27/23 22:59 06:59 14:59 Other: Voiding Method Toilet Toilet # Voids 2 General appearance: The patient is alert, oriented, appears in no acute distress. HET: Head is normocephalic and atraumatic. Conjunctiva pink. Sclera anicteric. Neck: Supple without lymphadenopathy. Trachea midline. Heart: S1 S2. Regular rate and rhythm. Lungs: Bilateral expiratory wheezes. Abdomen: Soft, nontender, nondistended with bowel sounds. No guarding or rigidity. Skin: No rashes. No jaundice. Extremities: Normal skin color and turgor. No pedal edema. Neurological: No focal deficits. Alert and oriented x3. Results CBC & Chem 7: 01/27/23 06:29 01/27/23 06:29 Labs: Abnormal Lab Results - Last 24 Hours (Table) 01/26/23 01/26/23 01/26/23 Range/Units 10:00 10:00 11:55 RBC 2.97 L (3.80-5.40) m/uL Hgb 8.9 L (11.4-16.0) gm/dL Hct 29.3 L (34.0-46.0) % MCHC 30.4 L (31.0-37.0) g/dL Neutrophils # 8.8 H (1.3-7.7) k/uL Lymphocytes # 0.8 L (1.0-4.8) k/uL Carbon Dioxide 31 H (22-30) mmol/L BUN 27 H (7-17) mg/dL Creatinine 1.12 H (0.52-1.04) mg/dL Glucose 246 H (74-99) mg/dL POC Glucose (mg/dL) 299 H (70-110) mg/dL ALT 57 H (4-34) U/L Total Protein 5.9 L (6.3-8.2) g/dL Albumin 3.3 L (3.5-5.0) g/dL 01/26/23 01/26/23 01/27/23 Range/Units 16:08 21:15 06:01 RBC (3.80-5.40) m/uL Hgb (11.4-16.0) gm/dL Hct (34.0-46.0) % MCHC (31.0-37.0) g/dL Neutrophils # (1.3-7.7) k/uL Lymphocytes # (1.0-4.8) k/uL Carbon Dioxide (22-30) mmol/L BUN (7-17) mg/dL Creatinine (0.52-1.04) mg/dL Glucose (74-99) mg/dL POC Glucose (mg/dL) 352 H 255 H 227 H (70-110) mg/dL ALT (4-34) U/L Total Protein (6.3-8.2) g/dL Albumin (3.5-5.0) g/dL Assessment and Plan (1) Dysphagia Narrative/Plan: 77-year-old female with multiple comorbidities presented with weakness, diarrhea, shortness of breath. Patient was diagnosed with COVID-19 infection while hospitalized. Patient has been having difficulty with swallowing at times for the last several weeks and has seen Dr. Tran in the outpatient setting. She was scheduled to undergo EGD last week however was hospitalized. Patient with history of previous EGDs last one about 3 years ago. Patient has been tolerating a regular diet according to nursing staff. Patient states that she has not had any significant weight loss. Unclear etiology of dysphagia, possibilities include peptic ulcer disease, gastritis, esophagitis, esophageal stricture. Due to patient's current respiratory status and ability to eat regular foods without any difficulty during this hospitalization we'll defer any endoscopic evaluation to the outpatient setting in the next 2-3 weeks. Current Visit: Yes Status: Acute Code(s): R13.10 - DYSPHAGIA, UNSPECIFIED SNOMED Code(s): 55884087 (2) Anemia Narrative/Plan: 77-year-old female with multiple comorbidities who was admitted with anemia. Iron levels were low however ferritin was within normal limits. Patient did receive IV iron during this hospitalization. No previous history of GI bleed. Anemia could be related to chronic disease, also consider possibility due to coronavirus. Unclear exact timing of infection. Patient without any active bleeding hemoglobin stable. IV iron was given. No plan for endoscopic evaluation at this time as patient's hemoglobin is stable and there is no active bleeding. They continue with Plavix and Lovenox. Avoid NSAIDs. Continue with proton X. Current Visit: Yes Status: Acute Code(s): D64.9 - ANEMIA, UNSPECIFIED SNOMED Code(s): 048785595 (3) COVID-19 virus infection Current Visit: Yes Status: Acute Code(s): U07.1 - COVID-19 SNOMED Code(s): 178346014 (4) COPD (chronic obstructive pulmonary disease) Current Visit: Yes Status: Acute Code(s): J44.9 - CHRONIC OBSTRUCTIVE PULMON NORA DISEASE, UNSPECIFIED SNOMED Code(s): 08133917 (5) Diabetes mellitus Current Visit: Yes Status: Acute Code(s): E11.9 - TYPE 2 DIABETES MELLITUS WITHOUT COMPLICATIONS SNOMED Code(s): 20340910 (6) Hypothyroidism Current Visit: Yes Status: Acute Code(s): E03.9 - HYPOTHYROIDISM, UNSPECIFIED SNOMED Code(s): 25583147 (7) Weakness Current Visit: Yes Status: Acute Code(s): R53.1 - WEAKNESS SNOMED Code(s): 44281195 Plan: 1. Continue symptomatic and supportive care 2. Diet as tolerated 3. Continue medical management 4. Protonix 40 mg daily 5. No planned endoscopic evaluation at this time. Patient to reschedule in the outpatient setting in the next 2-3 weeks once her respiratory status stabilizes. Thank you for this consultation, we will continue to follow. Dr. Riya Tran I agree with the dictator's note, documented as a scribe by Carmella Juárez.
[2023-01-27 16:57] LABS: Glucose,Whole Blood 280 mg/dL (70-110)
[2023-01-27 21:07] LABS: Glucose,Whole Blood 358 mg/dL (70-110)
[2023-01-27] MEDS: ACETAMINOPHEN TAB 325 MG TAB PO PRN (21:27)
[2023-01-27] MEDS: LORazepam 1 MG TAB PO SCH (21:27)
[2023-01-27] MEDS: ATORVASTATIN 80 MG TAB PO SCH (21:27)
[2023-01-27] MEDS: INSULIN DETEMIR (LEVEMIR) 100 UNIT/ML SYR SQ SCH (21:28)
--- NOTE | 2023-01-28 03:04 | PN ---
PROGRESS NOTE DATE OF SERVICE: 01/27/2023 SUBJECTIVE: This is a 77-year-old woman who was admitted with generalized weakness, also had COVID. The patient is feeling slightly stronger. No chest pain, no palpitation. OBJECTIVE: VITAL SIGNS: Pulse is 50, blood pressure 193/82, respirations 18. CHEST: Few scattered rhonchi. ABDOMEN: Soft. NERVOUS SYSTEM: Diffusely weak. LABORATORY DATA: Reviewed. ASSESSMENT: 1. Generalized weakness and tiredness. 2. Acute COVID-19 infection. 3. Acute kidney injury. 4. Urinary tract infection. 5. Multiple medical issues. 6. Gait dysfunction. RECOMMENDATIONS: Recommended to continue current management, continue symptomatic treatment. PT OT evaluation, to evaluate for possible ECF rehab. Repeat labs in the morning. Otherwise, if the patient is stable, possible discharge home. Medications are reviewed. Further recommendations to follow. Follow with multiple consultants. STIVEN / RONNA: [id number] /
[2023-01-28] MEDS: INSULIN ASPART (NovoLOG) 100 UNIT/ML VIAL SQ SCH ×2 (06:00→12:18)
[2023-01-28 06:01] LABS: Glucose,Whole Blood 102 mg/dL (70-110)
[2023-01-28] MEDS: LEVOTHYROXINE 50 MCG TAB PO SCH (06:03)
--- NOTE | 2023-01-28 08:13 | XR ---
EXAMINATION TYPE: XR chest 1V portable DATE OF EXAM: 01/28/2023 HISTORY: Shortness of breath. COMPARISON: 01/26/2023 TECHNIQUE: Single view of the chest is submitted. FINDINGS: Demonstrated are scattered senescent parenchymal change. Increasing lingular infiltrate as well as a patchy right perihilar density as well as mixed infiltrat e right upper lobe. The heart is stable. Hilar and mediastinal structures are within normal limits. Degenerative changes are seen of the dorsal spine. IMPRESSION: 1. Progressive infiltrates noted.
[2023-01-28] MEDS: glipiZIDE 5 MG TAB PO SCH (08:14)
[2023-01-28] MEDS: CLOPIDOGREL 75 MG TAB PO SCH (08:14)
[2023-01-28] MEDS: DULoxetine HCL 60 MG CAPSULE.DR PO SCH (08:14)
[2023-01-28] MEDS: LORazepam 0.5 MG TAB PO SCH (08:14)
[2023-01-28] MEDS: guaiFENesin 600 MG TABLET.ER PO SCH (08:14)
[2023-01-28] MEDS: RANOLAZINE 500 MG TAB.ER.12H PO SCH (08:14)
[2023-01-28] MEDS: METOPROLOL TARTRATE 50 MG TAB PO SCH (08:14)
[2023-01-28] MEDS: ENOXAPARIN 40 MG/0.4 ML SYRINGE SQ SCH (08:14)
[2023-01-28] MEDS: BUMETANIDE 1 MG TAB PO SCH (08:14)
[2023-01-28] MEDS: ASCORBIC ACID 500 MG TAB PO SCH (08:14)
[2023-01-28] MEDS: DICYCLOMINE 20 MG TAB PO SCH ×2 (08:14→13:15)
[2023-01-28] MEDS: PANTOPRAZOLE 40 MG TABLET PO SCH (08:14)
[2023-01-28] MEDS: MULTIVITAMINS, THERA 1 EACH TAB PO SCH (08:14)
[2023-01-28] MEDS: NITROGLYCERIN 0.4MG/HR PATCH TRANSDERM SCH (08:14)
[2023-01-28] MEDS: LORATADINE 10 MG TAB PO SCH (08:14)
[2023-01-28 08:15] VITALS: BP 168/85; RESP 17; TEMP 100.1
[2023-01-28] MEDS ORDERED: dexAMETHasone 2 MG TAB PO SCH (09:00)
--- NOTE | 2023-01-28 09:11 | P.PN ---
Subjective Progress Note Date: 01/28/23 Principal diagnosis: SOB, pneumonia This is a pleasant 77-year-old female who presented to the emergency department on 01/16/2023 with complaints of shortness of breath, weakness and intermittent abdominal pain that has been going on for weeks. She has a past medical history including COPD, coronary artery disease status post cardiac stents and CABG, diabetes mellitus, and hypothyroidism. She was admitted with dehydration, low TSH, COPD exacerbation, and acute COVID-19 infection diagnosed 01/22/2023. Apparently patient has been having continued complaints of difficulty swallowing. Gastroenterology was consulted last week however there was no cuff urgent Hospital. Patient is being seen today for the first time. She has seen Dr. Tran outpatient setting and was scheduled to undergo EGD last week but was here hospitalized. Patient was also noted to be anemic on this admission with admitting hemoglobin of 9.7 with a drop down to 7.7 however has remained stable currently at 8.5. Patient denies any black tarry stool or blood in stool prior to admission. States that she did have a little bit of blood with a bowel movement here, nursing thought it was likely hemorrhoidal. States that it was bright red blood, very small amount. Other than that patient denies any previous history of GI bleed. States her last EGD was approximately 3 years ago in her last colonoscopy likely 5 years ago done in [place]. Patient is currently on Plavix and Lovenox. Patient currently denies any abdominal pain, no nausea or vomiting. She does get some nausea at times, general upset stomach feeling but no pain. Has a history of acid reflux. Patient is on IV steroids and 3 L nasal cannula with oxygen saturation around 94%. Patient is audible bilateral wheezes and cough. Pulmonary team following patient closely. 01/28/2023: Patient seen and examined as a follow-up. Patient with low-grade fever of 100.3. Oxygen saturation 88% requiring 4 L of nasal cannula this morning. No acute changes otherwise through the night. No complaints of abdominal pain, nausea or vomiting. Patient is feeling well. Objective - Vital Signs Vital signs: Vital Signs Temp 100.1 F H 01/28/23 07:26 Pulse 87 01/28/23 07:26 Resp 17 01/28/23 07:26 BP 168/85 01/28/23 07:26 Pulse Ox 88 L 01/28/23 07:26 FiO2 2 01/20/23 08:44 Intake & Output 01/27/23 01/28/23 01/28/23 18:59 06:59 18:59 Intake Total 1080 Balance 1080 Weight 63.503 kg Intake: Oral 1080 Other: Voiding Method Toilet Toilet # Voids 3 3 # Bowel Movements 1 - Exam General appearance: The patient is alert, oriented, appears in no acute di stress. HET: Head is normocephalic and atraumatic. Conjunctiva pink. Sclera anicteric. Neck: Supple without lymphadenopathy. Abdomen: Soft, nontender, nondistended with bowel sounds. No guarding or rigidity. Extremities: Normal skin color and turgor. No pedal edema Skin: No rashes, no jaundice Neurological: No focal deficits. Alert and oriented. - Labs CBC & Chem 7: 01/27/23 06:29 01/27/23 06:29 Labs: Abnormal Lab Results - Last 24 Hours (Table) 01/27/23 01/27/23 01/27/23 Range/Units 06:29 06:29 06:29 RBC 2.80 L (4.10-5.20) X 10*6/uL Hgb 8.5 L (12.0-15.0) g/dL Hct 28.1 L (37.2-46.3) % MCV 100.4 H (80.0-97.0) fL MCHC 30.2 L (32.0-37.0) g/dL Absolute Nucleated RBC 0.10 H (0.00-0.00) X 10*3/uL Immature Gran # 0.27 H (0.00-0.04) X 10*3/uL Neutrophils # 7.87 H (1.80-7.70) X 10*3/uL Lymphocytes # 0.62 L (0.90-5.00) X 10*3/uL Eosinophils # 0.01 L (0.04-0.35) X 10*3/uL NRBC/100 WBC Diff 1.1 H (0.0-0.0) /100 WBCS Carbon Dioxide 31.0 H (20.0-27.5) mmol/L BUN 27.4 H (9.0-27.0) mg/dL Est GFR (CKD-EPI)NonAf 54.7 L (60.0-200.0) BUN/Creatinine Ratio 27.40 H (12.00-20.00) Ratio Glucose 209 H (70-110) mg/dL POC Glucose (mg/dL) (70-110) mg/dL Iron 38 L (50-170) ug/dL Total Bilirubin 0.20 L (0.30-1.20) mg/dL ALT 51 H (8-44) U/L Total Protein 5.6 L (6.2-8.2) g/dL Albumin 3.3 L (3.8-4.9) g/dL Albumin/Globulin Ratio 1.43 L (1.60-3.17) g/dL 01/27/23 01/27/23 01/27/23 Range/Units 11:43 16:56 21:06 RBC (4.10-5.20) X 10*6/uL Hgb (12.0-15.0) g/dL Hct (37.2-46.3) % MCV (80.0-97.0) fL MCHC (32.0-37.0) g/dL Absolute Nucleated RBC (0.00-0.00) X 10*3/uL Immature Gran # (0.00-0.04) X 10*3/uL Neutrophils # (1.80-7.70) X 10*3/uL Lymphocytes # (0.90-5.00) X 10*3/uL Eosinophils # (0.04-0.35) X 10*3/uL NRBC/100 WBC Diff (0.0-0.0) /100 WBCS Carbon Dioxide (20.0-27.5) mmol/L BUN (9.0-27.0) mg/dL Est GFR (CKD-EPI)NonAf (60.0-200.0) BUN/Creatinine Ratio (12.00-20.00) Ratio Glucose (70-110) mg/dL POC Glucose (mg/dL) 263 H 280 H 358 H (70-110) mg/dL Iron (50-170) ug/dL Total Bilirubin (0.30-1.20) mg/dL ALT (8-44) U/L Total Protein (6.2-8.2) g/dL Albumin (3.8-4.9) g/dL Albumin/Globulin Ratio (1.60-3.17) g/dL Microbiology - Last 24 Hours (Table) 01/26/23 19:00 Gram Stain - Preliminary Sputum Sputum Culture - Preliminary Assessment and Plan (1) Dysphagia Narrative/Plan: 77-year-old female with multiple comorbidities presented with weakness, diarrhea, shortness of breath. Patient was diagnosed with COVID-19 infection while hospitalized. Patient has been having difficulty with swallowing at times for the last several weeks and has seen Dr. Tran in the outpatient setting. She was scheduled to undergo EGD last week however was hospitalized. Patient with history of previous EGDs last one about 3 years ago. Patient has been tolerating a regular diet according to nursing staff. Patient states that she has not had any significant weight loss. Unclear etiology of dysphagia, possibi lities include peptic ulcer disease, gastritis, esophagitis, esophageal stricture. Due to patient's current respiratory status and ability to eat regular foods without any difficulty during this hospitalization we'll defer any endoscopic evaluation to the outpatient setting in the next 2-3 weeks. Current Visit: Yes Status: Acute Code(s): R13.10 - DYSPHAGIA, UNSPECIFIED SNOMED Code(s): 68522683 (2) Anemia Narrative/Plan: 77-year-old female with multiple comorbidities who was admitted with anemia. Iron levels were low however ferritin was within normal limits. Patient did receive IV iron during this hospitalization. No previous history of GI bleed. Anemia could be related to chronic disease, also consider possibility due to coronavirus. Unclear exact timing of infection. Patient without any active bleeding hemoglobin stable. IV iron was given. No plan for endoscopic evaluation at this time as patient's hemoglobin is stable and there is no active bleeding. They continue with Plavix and Lovenox. Avoid NSAIDs. Continue with proton X. Current Visit: Yes Status: Acute Code(s): D64.9 - ANEMIA, UNSPECIFIED SNOMED Code(s): 681259710 (3) COVID-19 virus infection Current Visit: Yes Status: Acute Code(s): U07.1 - COVID-19 SNOMED Code(s): 268572328 (4) COPD (chronic obstructive pulmonary disease) Current Visit: Yes Status: Acute Code(s): J44.9 - CHRONIC OBSTRUCTIVE PULMONARY DISEASE, UNSPECIFIED SNOMED Code(s): 53898588 (5) Diabetes mellitus Current Visit: Yes Status: Acute Code(s): E11.9 - TYPE 2 DIABETES MELLITUS WITHOUT COMPLICATIONS SNOMED Code(s): 25040598 (6) Hypothyroidism Current Visit: Yes Status: Acute Code(s): E03.9 - HYPOTHYROIDISM, UNS PECIFIED SNOMED Code(s): 09321164 (7) Weakness Current Visit: Yes Status: Acute Code(s): R53.1 - WEAKNESS SNOMED Code(s): 29393726 Plan: 1. Continue symptomatic and supportive care 2. Diet as tolerated 3. Continue medical management 4. Protonix 40 mg daily 5. No planned endoscopic evaluation at this time. Patient to reschedule in the outpatient setting in the next 2-3 weeks once her respiratory status stabilizes. Thank you for this consultation, we will sign off at this time. Dr. Riya Tran I agree with the dictator's note, documented as a scribe by Carmella Juárez.
[2023-01-28] MEDS: ALBUTEROL HFA INHALER INHALATION PRN (09:53)
[2023-01-28] MEDS: SYMBICORT 80-4.5 MCG INHALER INHALATION SCH (09:53)
[2023-01-28 11:07] VITALS: PULSE 90
[2023-01-28 11:08] LABS: Basophils # (A) 0.07 X 10*3/uL (0.00-0.10); Basophils % (A) 0.6 %; Eosinophils # (A) 0.05 X 10*3/uL (0.04-0.35); Eosinophils % (A) 0.4 %; HCT 32.7 % (37.2-46.3); Immature Grans, Automated 3.1 %; Lymphocytes # (A) 0.89 X 10*3/uL (0.90-5.00); Lymphocytes % (A) 7.4 %; MCH 30.3 pg (27.0-32.0); MCHC 30.6 g/dL (32.0-37.0); MCV 99.1 fL (80.0-97.0); Mean Platelet Volume 9.7 fL (9.5-12.2); Monocytes # (A) 0.68 X 10*3/uL (0.20-1.00); Monocytes % (A) 5.6 %; NRBC Per 100 WBC 1.5 /100 WBCS (0.0-0.0); Neutrophils # (A) 9.98 X 10*3/uL (1.80-7.70); Neutrophils % (A) 82.9 %; Platelet Count 404 X 10*3/uL (140-440); RDW 13.3 % (11.5-14.5); WBC 12.04 X 10*3/uL (4.50-10.00)
[2023-01-28 11:16] LABS: African American GFR (CKD) 63.4 (60.0-200.0); Albumin 3.7 g/dL (3.8-4.9); Albumin/Globulin Ratio 1.32 (1.60-3.17); BUN/Creat Ratio 22.6 Ratio (12.00-20.00); Blood Urea Nitrogen 22.6 mg/dL (9.0-27.0); Calcium 9.1 mg/dL (8.7-10.3); Globulin 2.8 g/dL (1.6-3.3); Non-African American GFR(CKD) 54.7 (60.0-200.0); Potassium 4.1 mmol/L (3.5-5.5); Total Bilirubin 0.3 mg/dL (0.30-1.20); Total Protein 6.5 g/dL (6.2-8.2)
[2023-01-28 11:50] LABS: Glucose,Whole Blood 147 mg/dL (70-110)
--- NOTE | 2023-01-28 13:03 | P.PN ---
Subjective Progress Note Date: 01/28/23 This is a pleasant 77 showed female patient who follows with Dr. van as her primary care provider. She has a history of coronary artery disease with previous coronary artery bypass grafting, previous stent placement, diabetes mellitus, hypothyroidism, hypertension, hyperlipidemia, chronic obstructive pulmonary disease from 30 years of smoking. She is maintained on Symbicort and albuterol along with oxygen at nighttime. She follows with a finishing range supervisor out of the [facility] system. She presented here to the emergency room last evening with the complaint of generalized weakness and fatigue that have been progressing over the past week. She feels exhausted. She is dyspneic on exertion. Some abdominal pain and cramping with intermittent diarrhea. Chest x- ray revealed some mild atelectasis of the left base. No overt heart failure. Mild chronic elevation of the right hemidiaphragm. White count 7.8. Hemoglobin 9.7. Platelets 342. D-dimer 0.39. Sodium 136. Potassium 4.6. Bicarb 26. BUN 36. Creatinine 1.51. Glucose 142. TSH less than 0.015. Free T4 1 0.14. Urinalysis clean. Ultrasound of the kidneys/renal and bladder revealed no evidence of hydronephrosis. No nephrolithiasis. No solid masses identified. The urinary bladder is anechoic. She is seen today in consultation on the regular medical floor. Currently laying comfortable in bed. Awake and alert in no acute distress. Maintaining good O2 saturations in the 90s on 2 L/m per nasal cannula. Normal saline at 75 mls per hour. She is on Symbicort and albuterol. Empiric antibiotics in the form of doxycycline. The patient is seen today 01/18/2023 in follow-up on the regular medical floor. She is currently resting comfortably in bed. Awake and alert in no acute distress. Less weak today compared to yesterday. Still some fatigue on minimal exertion. Maintaining O2 saturations in the 90s on 2 L/m per nasal cannula. She says some mild wheezing. Normal saline at 75 ML's per hour. Sodium 143. P otassium 4.4. Bicarb 26. BUN 25. Creatinine 1.1. Glucose 109. She is continued on Symbicort, albuterol, empiric antibiotics in the form of doxycycline. The patient is seen today 01/19/2023 in follow-up on the regular medical floor. She is currently resting comfortably in bed. Still with some complaints of shortness of breath and wheezing. Maintaining good O2 saturations in the high 90s on 2 L/m per nasal cannula. She is continued on Symbicort and albuterol. Antibiotics in the form of doxycycline. Chest x-ray reveals evidence of atelectasis of the lung bases. Blood sugar 115. The patient is seen today 01/27/2023 in follow-up on the regular medical floor. She has been treated for an exacerbation of COPD and COVID-19 infection. She's been slow to progress. She is currently sitting up at the bedside. Awake and alert in no acute distress. She is feeling better. Her main complaint is that of weakness. Her pro-calcitonin level is 0.06. She remains on ceftriaxone. Her chest x-ray and follow-up reveals chronic changes with left basilar acute infiltrate and/or atelectasis. No significant change from previous. She is maintaining good O2 saturations in the 90s on 3 L/m per nasal cannula. She's been afebrile. White count 9.4. He will not 8.5. Sodium 145. Potassium 4.6. Bicarb 31. BUN 27. Creatinine 1.0. Glucose 209. She is continued on Symbicort, albuterol, Lovenox for DVT prophylaxis. She remains on IV Solu- Medrol. The patient is seen today 01/28/2023 in follow-up on the regular medical floor. She is up ambulating in her room. Awake and alert in no acute distress. Maintaining O2 saturations in the high 80s low 90s on 4 L/m per nasal cannula. Afebrile. Hemodynamically stable. Chest x-ray continues to show bilateral infiltrates. Sputum culture pending. White count 12.0. Hemoglobin 10.0. Sodium 141. Potassium 4.1. Bicarb 31. BUN 23. Creatinine 1.0. Glucose 124. She remains on bronchodilators, Decadron, antibiotics in the form of ceftriaxone. Lovenox for DVT prophylaxis. NicoDerm patch in place. Objective - Vital Signs Vital signs: Vital Signs Temp 100.1 F H 01/28/23 07:26 Pulse 90 01/28/23 10:58 Resp 17 01/28/23 07:26 BP 168/85 01/28/23 07:26 Pulse Ox 85 L 01/28/23 10:58 FiO2 2 01/20/23 08:44 Intake & Output 01/27/23 01/28/23 01/28/23 18:59 06:59 18:59 Intake Total 1080 Balance 1080 Weight 63.503 kg Intake: Oral 1080 Other: Voiding Method Toilet Toilet # Voids 3 3 # Bowel Movements 1 - Exam GENERAL EXAM: Alert, 77-year-old female, on 4 L nasal cannula, comfortable in no apparent distress. HEAD: Normocephalic. EYES: Normal reaction of pupils, equal size. NOSE: Clear with pink turbinates. THROAT: No erythema or exudates. NECK: No masses, no JVD. CHEST: No chest wall deformity. LUNGS: Equal air entry with end expiratory wheeze on exhalation, bilateral scattered rhonchi. CVS: S1 and S2 normal with no audible murmur, regular rhythm. ABDOMEN: No hepatosplenomegaly, normal bowel sounds, no guarding or rigidity. SPINE: No scoliosis or deformity SKIN: No rashes CENTRAL NERVOUS SYSTEM: No focal deficits, tone is normal in all 4 extremities. EXTREMITIES: There is no peripheral edema. No clubbing, no cyanosis. Peripheral pulses are intact. - Labs CBC & Chem 7: 01/28/23 07:25 01/28/23 07:25 Labs: Abnormal Lab Results - Last 24 Hours (Table) 01/27/23 01/27/23 01/27/23 Range/Units 06:29 16:56 21:06 WBC (4.50-10.00) X 10*3/uL RBC (4.10-5.20) X 10*6/uL Hgb (12.0-15.0) g/dL Hct (37.2-46.3) % MCV (80.0-97.0) fL MCHC (32.0-37.0) g/dL Absolute Nucleated RBC (0.00-0.00) X 10*3/uL Immature Gran # (0.00-0.04) X 10*3/uL Neutrophils # (1.80-7.70) X 10*3/uL Lymphocytes # (0.90-5.00) X 10*3/uL NRBC/100 WBC Diff (0.0-0.0) /100 WBCS Carbon Dioxide (20.0-27.5) mmol/L Est GFR (CKD-EPI)NonAf (60.0-200.0) BUN/Creatinine Ratio (12.00-20.00) Ratio Glucose (70-110) mg/dL POC Glucose (mg/dL) 280 H 358 H (70-110) mg/dL Iron 38 L (50-170) ug/dL ALT (8-44) U/L Albumin (3.8-4.9) g/dL Albumin/Globulin Ratio (1.60-3.17) g/dL 01/28/23 01/28/23 01/28/23 Range/Units 07:25 07:25 11:49 WBC 12.04 H (4.50-10.00) X 10*3/uL RBC 3.30 L (4.10-5.20) X 10*6/uL Hgb 10.0 L (12.0-15.0) g/dL Hct 32.7 L (37.2-46.3) % MCV 99.1 H (80.0-97.0) fL MCHC 30.6 L (32.0-37.0) g/dL Absolute Nucleated RBC 0.18 H (0.00-0.00) X 10*3/uL Immature Gran # 0.37 H (0.00-0.04) X 10*3/uL Neutrophils # 9.98 H (1.80-7.70) X 10*3/uL Lymphocytes # 0.89 L (0.90-5.00) X 10*3/uL NRBC/100 WBC Diff 1.5 H (0.0-0.0) /100 WBCS Carbon Dioxide 31.0 H (20.0-27.5) mmol/L Est GFR (CKD-EPI)NonAf 54.7 L (60.0-200.0) BUN/Creatinine Ratio 22.60 H (12.00-20.00) Ratio Glucose 124 H (70-110) mg/dL POC Glucose (mg/dL) 147 H (70-110) mg/dL Iron (50-170) ug/dL ALT 53 H (8-44) U/L Albumin 3.7 L (3.8-4.9) g/dL Albumin/Globulin Ratio 1.32 L (1.60-3.17) g/dL Microbiology - Last 24 Hours (Table) 01/26/23 19:00 Gram Stain - Preliminary Sputum Sputum Culture - Preliminary Assessment and Plan Assessment: Acute Covid 19 infection, exact timing of infection is not clear. COPD exacerbation with secondary shortness of breath, secondary to above. Pro- calcitonin 0.06 Acute on chronic hypoxic respiratory failure secondary to above. Generalized weakness suspect secondary to diarrhea and dehydration, Covid infection Acute kidney injury secondary to above, improved Dysphagia of unclear etiology scheduled for outpatient EGD Anemia of unclear etiology, current hemoglobin 8.5 Hypothyroidism with current TSH less than 0.015, dose adjusted Tobacco dependence syndrome Coronary disease with previous stent placement and previous bypass grafting Hypertension Hyperlipidemia Diabetes mellitus Obstructive sleep apnea, intolerant to CPAP therapy Plan: The patient was seen and evaluated Chest x-ray, labs and medications reviewed Continue Symbicort, albuterol Continue Decadron 6 milligrams by mouth 10 days Continue home oxygen Cleared for discharge from the pulmonary standpoint Follow-up in the office in 1 week I have personally seen and examined the patient, performed the documentation and the assessment and plan as written. Number of minutes spent on the visit: 10.
--- NOTE | 2023-01-29 14:20 | P.DS ---
Providers Date of admission: 01/20/23 13:37 Expected date of discharge: 01/28/23 Attending physician: Marc Quintanilla Consults: 01/17/23 08:59 Consult Physician Routine Consulting Provider: Flory Boudreaux Consult Reason/Comments: Acute on chronic kidney failure Do you want consulting provider notified?: Yes 01/17/23 09:14 Consult Physician Routine Consulting Provider: Roger Cartagena Consult Reason/Comments: shortness of breath Do you want consulting provider notified?: Yes 01/17/23 09:15 Consult Physician Routine Consulting Provider: Pratibha Tran Consult Reason/Comments: difficulty swallowing, anemia Do you want consulting provider notified?: Yes 01/21/23 08:37 Consult Physician Routine Consulting Provider: Baljinder Evans Consult Reason/Comments: hallucinations Do you want consulting provider notified?: Yes Primary care physician: Magdalena Mcwilliams Hospital Course: Final diagnosis Generalized weakness and fatigue most likely secondary to acute COVID-19 infe ction Shortness of breath, secondary to acute COPD exacerbation Acute on chronic hypoxic respiratory failure, wears oxygen outpatient History of hypothyroidism Tobacco dependence History of coronary artery disease with previous stenting History of hypertension Hyperlipidemia Diabetes mellitus Obstructive sleep apnea does not use a CPAP Acute kidney injury, improved History of recent urinary tract infection Urinary tract infection in November 2022 GI prophylaxis Findings DVT prophylaxis Full code Discharge disposition Patient is being discharged in a stable condition with guarded prognosis to home. Patient will follow-up with Dr. Mcwilliams in the outpatient setting upon discharge. Patient is to also follow up with pulmonary outpatient in 1-2 weeks as scheduled. Patient will continue on dexamethasone for a 10 day course along with Ceftin 500 mg twice daily for the next 4 days to complete the course. Total time taken is greater than 35 minutes. Hospital course This is a 77-year-old female who was recently admitted with generalized weakness also found to have Covid with worsening shortness of breath. Patient has had prolonged hospitalization and being followed with multiple medical consultations. Patient slowly showed improvement and will be going home with home care. Patient reports she feels well and extremely anxious and wants to go home. Patient has been cleared by pulmonary for discharge today with outpatient follow-up in 1 week. Please refer to [facility] for further HPI. Currently no reports of chest pain, worsening shortness of breath, or palpitations. Patient is afebrile. No reports of nausea or vomiting and patient is tolerating diet. Patient will be discharged home today. Guarded prognosis. Physical exam: Gen: This is a 77-year-old female who is awake, alert and oriented 3, well- developed, well-nourished HEENT: Head is atraumatic, normocephalic. Pupils equal, round. Sclerae is anicteric. NECK: Supple. No JVD. No lymphadenopathy. No thyromegaly. LUNGS: Diminished breath sounds bilaterally with some scattered rhonchi coarse noted. No intercostal retractions. HEART: S1, S2 are muffled ABDOMEN: Soft. Bowel sounds are present. No masses. No tenderness. EXTREMITIES: No pedal edema. No calf tenderness. NEUROLOGICAL: Patient is awake, alert and oriented x3. Cranial nerves 2 through 12 are grossly intact. Please refer to medication reconciliation sheet for a list of medications. The impression and plan of care has been dictated by Becky Martínez, Nurse Practitioner as directed. Dr. Tim MD I have performed a history and examination and MDM of this patient, discussed the same with the dictator, and agree with the dictator's assessment and plan as written ,documented as a scribe. Based on total visit time, I have performed more than 50% of the visit. Patient Condition at Discharge: Fair Plan - Discharge Summary Discharge Rx Participant: No New Discharge Prescriptions: New dexAMETHasone ORAL [Hexadrol] 6 mg PO DAILY 10 Days #30 tab Levothyroxine Sodium [Synthroid] 50 mcg PO DAILY@0630 30 Days #30 tab glipiZIDE [Glucotrol] 5 mg PO AC-BID 30 Days #60 tab guaiFENesin [Mucinex] 600 mg PO Q12HR #20 tab Acetaminophen Tab [Tylenol] 650 mg PO Q6HR PRN tab PRN Reason: Fever And/ Or Pain cefUROXime axetiL [Ceftin] 500 mg PO BID 4 Days #8 tab Continue DULoxetine HCL [Cymbalta] 120 mg PO DAILY Omeprazole [PriLOSEC] 20 mg PO BID Clopidogrel [Plavix] 75 mg PO DAILY metFORMIN HCL [Glucophage] 1,000 mg PO BID Potassium Chloride ER [K-Dur 20] 20 meq PO BID Bumetanide [BUMEX] 2 mg PO BID@0900,1700 Ascorbic Acid [Vitamin C] 1,000 mg PO DAILY Biotin 5 mg PO DAILY lisinopriL [Zestril] 2.5 mg PO DAILY Rosuvastatin Calcium [Crestor] 40 mg PO HS Ranolazine [Ranexa] 500 mg PO BID Nitroglycerin 0.4MG/Hr Patch [Nitro-Dur 0.4MG/Hr Patch] 1 patch TRANSDERM DAILY Metoprolol Tartrate [Lopressor] 50 mg PO BID Dicyclomine HCl 20 mg PO QID Budesonide/Formoterol Fumarate [Symbicort 160-4.5 Mcg Inhaler] 2 puff INHALATION RT-BID Albuterol Sulfate [Albuterol Sulfate Hfa] 2 puff PO RT-Q6H PRN PRN Reason: Shortness Of Breath LORazepam [Ativan] 0.5 mg PO DAILY LORazepam [Ativan] 1 mg PO HS Multivitamins, Thera [Multivitamin (formulary)] 1 tab PO DAILY Glucosam/Charlie-Msm1/C/Odilon/Bosw [Glucosamine-Chondroitin Tablet] 1 tab PO DAILY Fexofenadine HCl [Kathy Allergy] 180 mg PO DAILY Discontinued Doxycycline Hyclate [Doryx] 50 mg PO DAILY Levothyroxine Sodium [Synthroid] 75 mcg PO DAILY Discharge Medication List Albuterol Sulfate [Albuterol Sulfate Hfa] 2 puff PO RT-Q6H PRN 01/16/23 [History] Ascorbic Acid [Vitamin C] 1,000 mg PO DAILY 01/16/23 [History] Biotin 5 mg PO DAILY 01/16/23 [History] Budesonide/Formoterol Fumarate [Symbicort 160-4.5 Mcg Inhaler] 2 puff INHALATION RT-BID 01/16/23 [History] Bumetanide [BUMEX] 2 mg PO BID@0900,1700 01/16/23 [History] Clopidogrel [Plavix] 75 mg PO DAILY 01/16/23 [History] DULoxetine HCL [Cymbalta] 120 mg PO DAILY 01/16/23 [History] Dicyclomine HCl 20 mg PO QID 01/16/23 [History] Fexofenadine HCl [Kathy Allergy] 180 mg PO DAILY 01/16/23 [History] Glucosam/Charlie-Msm1/C/Odilon/Bosw [Glucosamine-Chondroitin Tablet] 1 tab PO DAILY 01/16/23 [History] LORazepam [Ativan] 0.5 mg PO DAILY 01/16/23 [History] LORazepam [Ativan] 1 mg PO HS 01/16/23 [History] Metoprolol Tartrate [Lopressor] 50 mg PO BID 01/16/23 [History] Multivitamins, Thera [Multivitamin (formulary)] 1 tab PO DAILY 01/16/23 [History] Nitroglycerin 0.4MG/Hr Patch [Nitro-Dur 0.4MG/Hr Patch] 1 patch TRANSDERM DAILY 01/16/23 [History] Omeprazole [PriLOSEC] 20 mg PO BID 01/16/23 [History] Potassium Chloride ER [K-Dur 20] 20 meq PO BID 01/16/23 [History] Ranolazine [Ranexa] 500 mg PO BID 01/16/23 [History] Rosuvastatin Calcium [Crestor] 40 mg PO HS 01/16/23 [History] lisinopriL [Zestril] 2.5 mg PO DAILY 01/16/23 [History] metFORMIN HCL [Glucophage] 1,000 mg PO BID 01/16/23 [History] Acetaminophen Tab [Tylenol] 650 mg PO Q6HR PRN tab 01/28/23 [Rx] Levothyroxine Sodium [Synthroid] 50 mcg PO DAILY@0630 30 Days #30 tab 01/28/23 [Rx] cefUROXime axetiL [Ceftin] 500 mg PO BID 4 Days #8 tab 01/28/23 [Rx] dexAMETHasone ORAL [Hexadrol] 6 mg PO DAILY 10 Days #30 tab 01/28/23 [Rx] glipiZIDE [Glucotrol] 5 mg PO AC-BID 30 Days #60 tab 01/28/23 [Rx] guaiFENesin [Mucinex] 600 mg PO Q12HR #20 tab 01/28/23 [Rx] Follow up Appointment(s)/Referral(s): [facility] [NON-STAFF] - As Needed Rigoberto Benton MD [STAFF PHYSICIAN] - 1 Week Magdalena Mcwilliams MD [Primary Care Provider] - 1-2 days Patient Instructions/Handouts: Dehydration (DC), Weakness (DC), COVID-19 (Coronavirus Disease 2019) (DC) Activity/Diet/Wound Care/Special Instructions: Activity Limited until follow-up Follow-up primary care provider on discharge Continue taking medications as prescribed Follow-up pulmonary outpatient in 1-2 weeks Discharge Disposition: HOME WITH HOME HEALTH SERVICES
--- NOTE | 2023-01-31 07:08 | CDI ---
Documentation Clarification Form Date: 01/31/23 From: Gypsy Becker Admit Date: 01/20/2023 1:37:00 PM Patient Name: Hodan Jacobs Visit Number: [id number] Discharge Date: 01/28/2023 2:14:00 PM ATTENTION: The Clinical Documentation Specialists (CDI) and [facility] Coding Staff appreciate your assistance in clarifying documentation. Please respond to the clarification below the line at the bottom and electronically sign. The CDI & [facility] Coding staff will review the response and follow-up if needed. Please note: Queries are made part of the Legal Health Record. If you have any questions, please contact the author of this message via ITS. Dr. Milagro Dumont, COVID-19 is documented in the 01/23 progress note. For each diagnosis, documentation must be clear to determine if the condition was present at the time of the patients inpatient admission or developed during the hospital stay. Additional clarification regarding the COVID -19 is requested. History/Risk Factors: Weakness, ATN, AECOPD, acidosis, T2DM w CKD stage II, HTN w CKD II Clinical Indicators: COVID-19 test was performed 01/22 and was positive. Discharge summary states Generalized weaknessandfatiguemost likely secondary to acuteCOVID-19 infection. Treatment: IV Solu-Medrol Definition of Present on Admission (POA): A diagnosis present at the time the order for admission to inpatient status was written. Please clarify if the COVID-19 was POA [ ] Y = Yes, the condition was present at the time of the order for inpatient admission. [ ] N = No, the condition was not present at the time of the order for inpatient admission. [ ] W = Clinically undetermined if the condition was present at the time of the order for inpatient admission. Yes, the condition was present at the time of the order for inpatient admission. MTDD
== END 2023-01-28 14:14 | disposition home health service (06) | DRG 177 ==
LOC: EC 19:14 → 5NMEDONC 23:47 → OBSVTOIN 01-20 13:37 → 4SSUR 01-22 17:32
PROVIDERS: ADMIT Internal Medicine; ATTEND Internal Medicine
DX: U07.1 COVID-19 (principal); J12.82 Pneumonia due to coronavirus disease 2019; J96.21 Acute and chronic respiratory failure with hypoxia; N17.0 Acute kidney failure with tubular necrosis; J44.1 Chronic obstructive pulmonary disease with (acute) exacerbation; E87.20 Acidosis, unspecified; J98.11 Atelectasis; I45.2 Bifascicular block; R44.3 Hallucinations, unspecified; N39.0 Urinary tract infection, site not specified; J44.0 Chronic obstructive pulmonary disease with (acute) lower respiratory infection; E11.22 Type 2 diabetes mellitus with diabetic chronic kidney disease; I95.9 Hypotension, unspecified; D50.9 Iron deficiency anemia, unspecified; D17.79 Benign lipomatous neoplasm of other sites; E03.9 Hypothyroidism, unspecified; E86.1 Hypovolemia; E78.5 Hyperlipidemia, unspecified; I12.9 Hypertensive chronic kidney disease with stage 1 through stage 4 chronic kidney disease, or unspecified chronic kidney disease; N18.2 Chronic kidney disease, stage 2 (mild); E86.0 Dehydration; E83.42 Hypomagnesemia; R13.10 Dysphagia, unspecified; E87.70 Fluid overload, unspecified; I25.10 Atherosclerotic heart disease of native coronary artery without angina pectoris; G47.33 Obstructive sleep apnea (adult) (pediatric); F32.A Depression, unspecified; F41.9 Anxiety disorder, unspecified; I25.2 Old myocardial infarction; K21.9 Gastro-esophageal reflux disease without esophagitis; M19.90 Unspecified osteoarthritis, unspecified site; K64.9 Unspecified hemorrhoids; Z99.81 Dependence on supplemental oxygen; Z79.51 Long term (current) use of inhaled steroids; Z79.02 Long term (current) use of antithrombotics/antiplatelets; Z79.890 Hormone replacement therapy; Z79.84 Long term (current) use of oral hypoglycemic drugs; Z79.899 Other long term (current) drug therapy; Z87.891 Personal history of nicotine dependence; Z95.5 Presence of coronary angioplasty implant and graft; Z95.1 Presence of aortocoronary bypass graft; Z87.440 Personal history of urinary (tract) infections; Z96.60 Presence of unspecified orthopedic joint implant; T38.0X5A Adverse effect of glucocorticoids and synthetic analogues, initial encounter; R26.9 Unspecified abnormalities of gait and mobility
CPT/HCPCS: 36415; 70450; 71045; 71046; 76770; 80048; 80053; 81001; 82607; 82728; 82746; 83540; 83550; 83605; 83615; 83735; 84100; 84145; 84439; 84443; 84484; 85025; 85379; 85610; 85730; 86140; 87070; 87205; 87635; 93005; 93306; 94640; 94760; 96365; 96366; 99285